=== PATIENT | female | born 2000 | race Caucasian/White ===

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

== ENCOUNTER → 2022-07-16 09:24 | Outpatient (BNVA) | payer MEDICAID, SELFPAY | PROVIDERS: PCP Registered Nurse Community Health; Visit Provider Advanced Practice Midwife | DX: Z34.81 Encounter for supervision of other normal pregnancy, first trimester (principal); Z3A.00 Weeks of gestation of pregnancy not specified | CPT/HCPCS: 99202 ==

== ENCOUNTER 2022-09-03 13:56 | Outpatient (REF) | payer MEDICAID, SELFPAY ==
[2022-09-03 15:35] LABS: Hematocrit 36.4 % (37.0-47.0); Hemoglobin 12.7 g/dl (12.0-16.0); Mean Corpuscular HGB Conc 34.9 g/dl (31.0-35.0); Mean Corpuscular Hemoglobin 30.8 pg (27.0-33.0); Mean Corpuscular Volume 88.1 fL (80.0-98.0); Mean Platelet Volume 11.4 fL (9.4-12.3); Platelet Count 237 X10*3/uL (160-400); Red Blood Count 4.13 X10*6/uL (4.20-5.50); Red Cell Distribution Width 12.5 % (11.0-16.0); White Blood Count 10.9 X10*3/uL (4.8-10.8)
[2022-09-03 16:06] LABS: Amphetamine Screen Urine Not Detected (Not Detect); Barbiturates, Urine Not Detected (Not Detect); Benzodiazepines Screen Urine Not Detected (Not Detect); Cannabinoid Screen Urine Not Detected (Not Detect); Cocaine Screen Urine Not Detected (Not Detect); Fentanyl, urine Not Detected (Not Detect); Opiate Screen Urine Not Detected (Not Detect); Phencyclidine Screen Urine Not Detected (Not Detect)
[2022-09-04 04:43] LABS: Syphilis Screen Nonreactive (Nonreactive)
[2022-09-04 07:13] LABS: HIV AB/AG Nonreactive (Nonreactive); HIV Num 1 0.08 S/CO (0.00-0.99); Hepatitis B Surface Antigen Negative (Negative); ~HepC Num1 0.13 S/CO (0.00-0.79); ~Hepatitis C Antibody Nonreactive (Nonreactive)
[2022-09-05 06:03] LABS: Rubella IgG Antibody 1.61 Index
[2022-09-15 02:09] LABS: CF Ethnicity NG; Cystic Fibrosis NEGATIVE (NEGATIVE)
== END 2022-09-03 13:57 | disposition home or self-care (01) ==
LOC: HO.LAB 13:56
PROVIDERS: PCP Registered Nurse Community Health; Visit Provider Advanced Practice Midwife
DX: Z34.92 Encounter for supervision of normal pregnancy, unspecified, second trimester (principal); Z3A.17 17 weeks gestation of pregnancy
CPT/HCPCS: 80307; 81220; 85027; 86762; 86780; 86787; 86803; 86850; 86900; 87086; 87340; 87389; 99212

== ENCOUNTER 2022-09-09 13:46 | Outpatient (REF) | payer MEDICAID, SELFPAY ==
[2022-09-10 06:31] LABS: CT PCR NOT DETECTED (Not Detect.); NG PCR NOT DETECTED (Not Detect.)
[2022-09-10 11:15] LABS: BV Int Neg Control Negative (Negative); BV Int Pos Control Positive (Positive)
== END 2022-09-09 13:47 | disposition home or self-care (01) ==
LOC: HO.LNP 13:46
PROVIDERS: PCP Registered Nurse Community Health; Visit Provider Advanced Practice Midwife
DX: O99.342 Other mental disorders complicating pregnancy, second trimester (principal); F41.9 Anxiety disorder, unspecified; Z3A.18 18 weeks gestation of pregnancy
CPT/HCPCS: 0353U; 81003; 87480; 87510; 87660; 88142; 99212

== ENCOUNTER → 2022-10-07 14:27 | Outpatient (BNVA) | payer MEDICAID, SELFPAY | PROVIDERS: PCP Registered Nurse Community Health; Visit Provider Advanced Practice Midwife | DX: Z34.82 Encounter for supervision of other normal pregnancy, second trimester (principal); Z3A.22 22 weeks gestation of pregnancy | CPT/HCPCS: 81003; 99212 ==

== ENCOUNTER → 2022-11-04 14:26 | Outpatient (BNVA) | payer MEDICAID, SELFPAY | PROVIDERS: PCP Registered Nurse Community Health; Visit Provider Advanced Practice Midwife | DX: O09.32 Supervision of pregnancy with insufficient antenatal care, second trimester (principal); O09.292 Supervision of pregnancy with other poor reproductive or obstetric history, second trimester; O99.342 Other mental disorders complicating pregnancy, second trimester; F41.9 Anxiety disorder, unspecified; O26.892 Other specified pregnancy related conditions, second trimester; R12 Heartburn; Z3A.26 26 weeks gestation of pregnancy | CPT/HCPCS: 99212 ==

== ENCOUNTER 2022-11-20 14:37 | Outpatient (REF) | payer MEDICAID, SELFPAY ==
[2022-11-20 17:35] LABS: Hematocrit 36.1 % (37.0-47.0); Hemoglobin 12.1 g/dl (12.0-16.0); Mean Corpuscular HGB Conc 33.5 g/dl (31.0-35.0); Mean Corpuscular Hemoglobin 30.6 pg (27.0-33.0); Mean Corpuscular Volume 91.2 fL (80.0-98.0); Mean Platelet Volume 11.9 fL (9.4-12.3); Platelet Count 286 X10*3/uL (160-400); Red Blood Count 3.96 X10*6/uL (4.20-5.50); Red Cell Distribution Width 12.2 % (11.0-16.0); White Blood Count 10.9 X10*3/uL (4.8-10.8)
[2022-11-23 09:08] LABS: Syphilis Screen Nonreactive (Nonreactive)
== END 2022-11-20 14:38 | disposition home or self-care (01) ==
LOC: HO.LAB 14:37
PROVIDERS: Visit Provider Advanced Practice Midwife
DX: O99.340 Other mental disorders complicating pregnancy, unspecified trimester (principal); F41.9 Anxiety disorder, unspecified
CPT/HCPCS: 36415; 85027; 86780

== ENCOUNTER → 2022-12-04 14:35 | Outpatient (BNVA) | payer MEDICAID, SELFPAY | PROVIDERS: PCP Registered Nurse Community Health; Visit Provider Advanced Practice Midwife | DX: O26.893 Other specified pregnancy related conditions, third trimester (principal); Z67.91 Unspecified blood type, Rh negative; R12 Heartburn; O99.343 Other mental disorders complicating pregnancy, third trimester; F41.9 Anxiety disorder, unspecified; O24.419 Gestational diabetes mellitus in pregnancy, unspecified control; Z3A.30 30 weeks gestation of pregnancy | CPT/HCPCS: 81003; 99212 ==

== ENCOUNTER 2022-12-10 14:21 | Outpatient (REF) | payer MEDICAID, SELFPAY ==
[2022-12-10 16:42] LABS: Glucose 1 Hour PP 50gm Dose 78 mg/dL (60-140)
== END 2022-12-10 14:22 | disposition home or self-care (01) ==
LOC: HO.LAB 14:21
PROVIDERS: PCP Registered Nurse Community Health; Visit Provider Advanced Practice Midwife
DX: O99.343 Other mental disorders complicating pregnancy, third trimester (principal); F41.9 Anxiety disorder, unspecified; O26.893 Other specified pregnancy related conditions, third trimester; Z67.91 Unspecified blood type, Rh negative; Z3A.31 31 weeks gestation of pregnancy
CPT/HCPCS: 36415; 82950; 86850; 96372; 99212; J2790

== ENCOUNTER → 2022-12-25 13:52 | Outpatient (BNVA) | payer MEDICAID, SELFPAY | PROVIDERS: PCP Registered Nurse Community Health; Visit Provider Advanced Practice Midwife | DX: Z34.83 Encounter for supervision of other normal pregnancy, third trimester (principal); Z3A.33 33 weeks gestation of pregnancy | CPT/HCPCS: 99212 ==

== ENCOUNTER → 2023-01-01 14:58 | Outpatient (BNVA) | payer MEDICAID, SELFPAY | PROVIDERS: PCP Registered Nurse Community Health; Visit Provider Advanced Practice Midwife | DX: Z34.83 Encounter for supervision of other normal pregnancy, third trimester (principal); Z3A.34 34 weeks gestation of pregnancy | CPT/HCPCS: 81003; 99212 ==

== ENCOUNTER 2023-01-15 14:40 | Outpatient (REF) | payer MEDICAID, SELFPAY ==
[2023-01-16 06:04] LABS: CT PCR NOT DETECTED (Not Detect.); NG PCR NOT DETECTED (Not Detect.)
[2023-01-16 13:49] LABS: BV Int Neg Control Negative (Negative); BV Int Pos Control Positive (Positive)
[2023-01-17 13:09] LABS: Allergic to Penicillin? No
== END 2023-01-15 14:41 | disposition home or self-care (01) ==
LOC: HO.LNP 14:40
PROVIDERS: PCP Registered Nurse Community Health; Visit Provider Advanced Practice Midwife
DX: Z23 Encounter for immunization (principal); O09.293 Supervision of pregnancy with other poor reproductive or obstetric history, third trimester; Z3A.36 36 weeks gestation of pregnancy
CPT/HCPCS: 0353U; 87150; 87480; 87510; 87660; 90471; 90715; 99212

== ENCOUNTER → 2023-01-25 13:37 | Outpatient (BNVA) | payer MEDICAID, SELFPAY | PROVIDERS: PCP Registered Nurse Community Health; Visit Provider Advanced Practice Midwife | DX: Z34.83 Encounter for supervision of other normal pregnancy, third trimester (principal); Z3A.37 37 weeks gestation of pregnancy | CPT/HCPCS: 99212 ==

== ENCOUNTER 2023-04-03 16:30 | Emergency (ER) | payer MEDICAID, SELFPAY ==
--- NOTE | ~2023-04-03 | XR_ITS ---
EXAMINATION: XR THORACIC SPINE CLINICAL INFORMATION: Back pain COMPARISON: None available. TECHNIQUE: 3 views of the thoracic spine were obtained. FINDINGS: There is no fracture or bone destruction seen and the vertebral alignment is normal. There is no disc space narrowing. There is no abnormality of the paraspinal soft tissues. XR/XR thoracic spine 3V IMPRESSION: Unremarkable examination.
[2023-04-03 17:32] VITALS: PULSE 80; RESP 18; O2SAT 98; BMI 31.8
--- NOTE | 2023-04-03 20:08 | ED_ITS ---
HPI - Back Pain/Injury General Chief Complaint: Back Pain/Injury Stated Complaint: Back inj at work Time Seen by Provider: 04/03/23 17:35 Source: patient and RN notes reviewed Mode of arrival: ambulatory Limitations: no limitations History of Present Illness HPI Narrative: This is a 22-year-old female, with history of asthma, presenting to the emergency department with complaints of upper back pain times 6 days. 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 She felt her back start to cause her some pain. Denies specific movement to cause her pain. She states over the last several days her pain has gradually worsened. She has tried massage, and since, pain patches, without any relief. She denies any fevers, chills, shortness breath, a bdominal pain, nausea, vomiting diarrhea. No urinary symptoms. No saddle anesthesia. No weakness or numbness. She is ambulatory. No other complaints or concerns at this time. MD elicited complaint: back pain and back injury Onset (ago): day(s) Timing: constant Severity: moderate Similar Symptoms Previously: No Quality: aching Location: thoracic spine Radiation: none Exacerbating factors: immobilization Relieving factors: immobilization Context: while lifting and turning/twisting Associated symptoms: denies other symptoms Treatments prior to arrival: cold therapy, heat therapy and NSAIDS Work related injury: Yes Related Data Previous Rx's Medication Instructions Recorded vitamin with calcium 1 tab PO DAILY #90 tabs 07/16/22 no.72-iron 27 mg-folic acid 1 mg tablet ( Vitamins Plus Low Iron) FreeStyle Lite Strips (blood sugar #100 strips 11/26/22 diagnostic) blood-glucose meter (FreeStyle #1 ea 11/26/22 [place] Lite kit) lancets 28 gauge (FreeStyle #100 ea 11/26/22 Lancets) acetaminophen 325 mg capsule 650 mg (2 x 325 mg) PO Q6H PRN 04/03/23 (Tylenol) pain #30 caps ibuprofen 600 mg tablet 600 mg PO Q6H PRN pain #30 tabs 04/03/23 lidocaine 5 % topical patch 1 patch topical DAILY #30 ea 04/03/23 (Lidoderm) Allergies Allergy/AdvReac Type Severity Reaction Status Date / Time pineapple [PINEAPPLE] Allergy Intermediate HIVES Verified 01/25/23 13:39 Review of Systems Review of Systems: Yes all other systems are reviewed and are negative Constitutional: Constitutional: Reports as per [facility] Past Medical History Medical History H/O oligohydramnios in prior , currently Surgical History [place] teeth removed Family History Family History Mother Ovarian cancer Maternal Grandmother Colon cancer Social History Social History Household Members: Family Housing: House Are you a primary career center advisor to a significant other at home: No Do you presently have visiting nurse or other home services: No Alcohol intake: former Patient Tobacco Use Status: Former Tobacco user Special zoë needs: No Agree to transfusion: Yes Advance Directives: No Advance Directives Information Provided: No Physical Exam Vital Signs: Vital Signs: Last Vital Signs Pulse 88 04/03/23 22:54 Resp 16 04/03/23 22:54 BP 122/83 04/03/23 22:54 Pulse Ox 99 04/03/23 22:54 O2 Del Method Room Air 04/03/23 22:54 BMI result Body Mass Index 31.8 Const: General: cooperative, comfortable and no acute distress Orientation/consciousness: patient oriented x3 Limitations: no limitations HEENT: Head: Yes normal to inspection, Yes normocephalic and Yes atraumatic Ears: hearing grossly normal bilaterally General nose exam: Normal external nose present Face and sinus: Yes normal facial exam Mouth: Normal oral and palatal mucosa present, oropharynx normal and moist mucous membranes Throat: Yes posterior oropharynx normal Eyes: General: appearance normal, both eyes and all related structures Eyelids: Yes eyelids normal Conjunctivae: conjunctivae normal Sclerae: sclerae normal Pupils: Equal, round and reactive pupils present EOM: EOMs intact bilaterally Neck: Neck: Yes normal visual inspection, Yes full ROM and Yes no lymphadenopathy Lymphatic: no lymphadenopathy noted Chest: Chest palpation & inspection: normal inspection of the chest Resp: Effort & Inspection: normal respiratory effort and able to speak in complete sentences Auscultation: clear to auscultation bilaterally, no crackles, no rales, no rhonchi and no wheezes Cardio: Rate: regular rate Rhythm: regular rhythm Heart sounds: S1 normal heart sound present and S2 normal heart sound present GI: Inspection: Yes normal to inspection Skin: General skin exam: no rashes or lesions noted Trauma: no lacerations or abrasions Wounds: no wounds Neuro: General: patient oriented x3 and moves all extremities Cranial nerves: Yes Equal, round and reactive pupils present Extrem: General: Yes normal to inspection Right upper extremity: normal to inspection Left upper extremity: normal to inspection Right lower extremity: normal to inspection Left lower extremity: normal to inspection Course Reevaluation(s) Reevaluation #1: X-ray unremarkable patient feeling better after receiving Tylenol, discussed return precautions. Given prescription for ibuprofen and lidocaine patches. Patient stable for discharge. Medications Administered Discontinued Medications Generic Name Dose Route Start Last Admin Trade Name Freq PRN Reason Stop Dose Admin Acetaminophen 975 mg 04/03/23 22:00 04/03/23 22:05 Acetaminophen 325 Mg Tablet PO 04/03/23 22:01 975 mg ONCE ONE Administration Medical Decision Making Medical Decision Making MDM Narrative: 22-year-old female presenting to the emergency department for evaluation of back pain x4 days. Patient reports chemical injury. On arrival vital signs are within normal limits. Differential diagnoses include muscle spasm, disc herniation, fracture. Less likely nephrolithiasis, no urinary symptoms. This patient presents with back pain most consistent with muscle spasms Differential diagnoses includes lumbago versus musculoskeletal spasm / strain. No back pain red flags on history or physical. Presentation not consistent with malignancy (lack of history of malignancy, lack of B symptoms), fracture (no trauma, no bony tenderness to palpation), cauda equina (no bowel or urinary incontinence/retention, no saddle anesthesia, no distal weakness), renal colic, pyelonephritis (afebrile, no CVAT, no urinary symptoms). Plan x-rays Differential Diagnosis Differential Diagnoses: The differential diagnosis associated with the presentation includes See above Radiology Impression Discussion of test interpretation with radiology: I have reviewed the radiologist's reading. Radiologist Impression: EXAMINATION: XR THORACIC SPINE CLINICAL INFORMATION: Back pain COMPARISON: None available. TECHNIQUE: 3 views of the thoracic spine were obtained. FINDINGS: There is no fracture or bone destruction seen and the vertebral alignment is normal. There is no disc space narrowing. There is no abnormality of the paraspinal soft tissues. XR/XR thoracic spine 3V IMPRESSION: Unremarkable examination. Dictated By: Ld Grant MD Discharge Plan Discharge Clinical Impression: Spasm of thoracic back muscle Patient Disposition: Home, Self-Care Instructions: Muscle Spasm (ED), Back Pain (ED) Additional Instructions: Your x-rays were normal today. You have a muscle spasm in your back causing you to have the symptoms. Please take ibuprofen and Tylenol, you may alternate between these medications for pain relief. Lidoderm patches can also help with your pain. Gentle massage, range of motion, stretching can also help. Follow-up with your primary care physician on Wednesday to ensure improvement of your symptoms. If any new or worsening symptoms occur, please return for re-evaluation. Prescriptions: New ibuprofen 600 mg tablet 600 mg PO Q6H PRN (Reason: pain) Qty: 30 0RF lidocaine [Lidoderm] 5 % adhesive patch,medicated 1 patch topical DAILY Qty: 30 0RF Rx Instructions: leave on most painful area for up to 12 hrs acetaminophen [Tylenol] 325 mg capsule 650 mg PO Q6H PRN (Reason: pain) Qty: 30 0RF No Action (DME) blood-glucose meter [FreeStyle [place] Lite] Kit See Rx Instructions .ROUTE .MEDSUPPLY Qty: 1 0RF Rx Instructions: use 4x day as directed (DME) FreeStyle Lite Strips Strip See Rx Instructions .ROUTE QID Qty: 100 1RF Rx Instructions: use 4x day as directed (DME) lancets [FreeStyle Lancets] 28 gauge misc See Rx Instructions .ROUTE .MEDSUPPLY Qty: 100 0RF Rx Instructions: use 4x day Vitamin Plus Low Iron 27 mg iron- 1 mg tablet 1 tab PO DAILY Qty: 90 4RF Stand Alone Forms: Work/School Release Interventions: ED Discharge Assessment Last Done: 04/03/23 23:36 Discharge Date/Time: 04/03/23 23:37
[2023-04-03] MEDS: Acetaminophen 325 MG TABLET 975 MG PO (22:05)
[2023-04-03 22:54] VITALS: BP 122/83; PULSE 88; RESP 16; O2SAT 99
--- NOTE | 2023-04-03 22:57 | PC.NURSE ---
pt medicated w/ 975mg apap- pt now sts pain is 4/10 down from 710- XR resulted pt awaitng provider re-eval and d/c- call sotelo within reach.
--- NOTE | 2023-04-03 23:00 | PC.NURSE ---
report given to MAK Karimi
== END 2023-04-03 23:37 | disposition home or self-care (01) ==
PROVIDERS: Emergency Provider Emergency Medicine Emergency Medical Services; PCP Nurse Practitioner Primary Care
DX: M62.830 Muscle spasm of back (principal)
CPT/HCPCS: 72072; 99283; 99284

== ENCOUNTER 2023-09-15 11:35 | Outpatient (AMB) | payer MEDICAID, SELFPAY ==
--- NOTE | 2023-09-15 11:41 | A.OFFVIS_ITS ---
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 She reports unknown LMP, delivered 7 months ago. She did a home test 1 month ago because her sister in law requested her to do 1 with her she reports ironically her [id number] was not and she was which was a shock for her. She has a . She does not note any quickening. She denies any nausea, reports fatigue. Does not denies any pelvic pain or vaginal bleeding. History of IOL 01/2023 for oligomenorrhea and IUGR with previous . [facility] Medical History (Updated 09/15/23 @ 16:12 by Marzena Ingram CNM) Late care affecting in third trimester H/O oligohydramnios in prior , currently Surgical History (Reviewed 01/25/23 @ 13:44 by Vahe Salinas [facility]) [place] teeth removed Family History Mother Ovarian cancer Maternal Grandmother Colon cancer Social History (Reviewed 01/25/23 @ 13:44 by Vahe Salinas [facility]) Household Members: Family Housing: House Are you a primary floor care technician to a significant other at home: No Do you presently have visiting nurse or other home services: No Alcohol intake: former Patient Tobacco Use Status: Former Tobacco user Special zoë needs: No Agree to transfusion: Yes Female Reproductive History Menstrual Age of Menarche: 12 Total pregnancies: 5 Full term: 2 Number of Living Children: 2 Ab induced: 1 Ab spontaneous: 1 Review of Systems Const All systems reviewed & are unremarkable except as noted in HPI and below Endo Reports no additional complaints Physical Exam Vital Signs: Last Vital Signs BP 118/66 09/15/23 11:42 BMI result Body Mass Index 33.0 Const General: cooperative, healthy appearing and no acute distress GI Other: Abdomen soft, gravid, fundal height equals 28. heart rate 150. Psych Appearance: well kempt Attitude: cooperative Thought process: Normal thought process present Results AMB Test Urine AMB Test Urine Positive Last Edit by THALIA Mattson on 09/15/23 11:49 Results Reviewed Results Reviewed: Laboratory Last Values [facility] Positive 09/15/23 11:49 Assessment & Plan Assessment & Plan (1) Late care affecting in third trimester: Code(s): O09.33 - Supervision of with insufficient care, third trimester Plan Patient returned from ultrasound for an unofficial read of her report. EDC is 12/10/2023 gestational age is approximately 27.6 weeks. Start vitamins. Reviewed warnings and when to call for immediate care. Order for survey in the next week. Plan care until transfer [facility] is completed stopped reach out for appointments in scheduling. All of her questions and concerns were addressed to the best of my ability and shared decision making. She is agreeable to the plan of care. This note is constructed using voice recognition software. While every effort has been made to ensure accuracy, fine artist errors may have been included. Orders: Orders US OB limited Today Z78.9 - Other specified health status US OB /maternal detail Today O09.33 - Supervision of with insufficient care, third trimester AMB HCG Urine Test Today Z32.01 - Encounter for test, result positive Medications: Refilled PNV,calcium 28-jbbl-bwyeq acid 27 mg iron- 1 mg ( Vitamins Plus Low Iron) 1 tab PO DAILY 90 tabs 4RF Discontinued FreeStyle Lite Strips (blood sugar diagnostic) Discontinued Reason: Ancillary Entered New Order use 4x day as directed 100 strips 1RF NS lancets (FreeStyle Lancets) Discontinued Reason: Ancillary Entered New Order use 4x day 100 ea 0RF blood-glucose meter (FreeStyle [place] Lite kit) Discontinued Reason: Ancillary Entered New Order use 4x day as directed 1 ea 0RF gest diabetes Coding Level of Care Code Est Pt Level 3 (35927) Diagnoses Late care affecting in third trimester O09.33
[2023-09-15 11:42] VITALS: BP 118/66; BMI 33.0
== END 2023-09-15 12:15 | disposition home or self-care (01) ==
LOC: HO.HWS 11:35
PROVIDERS: PCP Nurse Practitioner Primary Care; Visit Provider Advanced Practice Midwife
DX: O09.33 Supervision of pregnancy with insufficient antenatal care, third trimester (principal); Z32.01 Encounter for pregnancy test, result positive
CPT/HCPCS: 99213

== ENCOUNTER → 2023-09-15 11:35 | Outpatient (BNVA) | payer MEDICAID, SELFPAY | PROVIDERS: PCP Nurse Practitioner Primary Care; Visit Provider Advanced Practice Midwife ==

== ENCOUNTER 2023-09-15 12:18 | Outpatient (REF) | payer MEDICAID, SELFPAY ==
--- NOTE | ~2023-09-15 | US_ITS ---
EXAMINATION: US , LIMITED CLINICAL INFORMATION: Other specified health status. Unknown LMP. COMPARISON: None available. TECHNIQUE: Limited transabdominal OB ultrasound. survey not performed. FINDINGS: There is a single viable intrauterine fetus in cephalic position. heart rate is 149 bpm. Biophysical profile is 8 out of 8. Amniotic fluid index is 13 cm. measurements are concordant. BPD measures 6.7 cm suggesting gestational age 26 weeks 6 days. OFD measures 8.9 cm suggesting gestational age 27 weeks 4 days. Head circumference measures 29 cm suggesting gestational age 27 weeks 2 days. Abdominal circumference measures 24 cm suggesting gestational age 28 weeks 0 days. Femur length is 5.3 cm suggesting gestational age 28 weeks 2 days. From today's measurements, gestational age is estimated at 27 weeks and 5 days with estimated date of delivery 12/10/2023. There is a posterior fundal placenta with grade 0 changes. Cervix is long and closed and measures 5.3 cm in length. US/US OB limited IMPRESSION: Single viable intrauterine fetus. From today's measurements gestational age is estimated at 27 weeks 5 days.
== END 2023-09-15 12:19 | disposition home or self-care (01) ==
LOC: HO.US 12:18
PROVIDERS: PCP Nurse Practitioner Primary Care; Visit Provider Advanced Practice Midwife
DX: O09.32 Supervision of pregnancy with insufficient antenatal care, second trimester (principal); Z78.9 Other specified health status; Z3A.27 27 weeks gestation of pregnancy
CPT/HCPCS: 76815; 81025; 99212

== ENCOUNTER 2024-02-03 11:35 | Outpatient (REF) | payer MEDICAID, SELFPAY ==
[2024-02-03 14:24] LABS: Estimated Average Glucose 103 mg/dL; Hemoglobin A1c % 5.2 % (<6.0)
[2024-02-03 14:37] LABS: Alanine Aminotransferase 75 U/L (0-31); Albumin Level 4.3 g/dL (3.5-5.0); Alkaline Phosphatase 106 U/L (39-117); Anion Gap 14 (12-20); Aspartate Amino Transferase 41 U/L (5-31); Bilirubin Total 0.4 mg/dL (0.0-1.0); Blood Urea Nitrogen 13 mg/dL (9-16); Calcium 9.4 mg/dL (8.4-10.2); Carbon Dioxide 25 mmol/L (22-29); Chloride 105 mmol/L (96-108); Cholesterol 226 mg/dL (<200); Estimated Glomerular Filt Rate > 60; Glucose Random 65 mg/dL (60-115); HDL Cholesterol 46 mg/dL (>40); LDL Cholesterol Calculated 140 mg/dL (<100); Potassium 3.8 mmol/L (3.3-5.1); Sodium 140 mmol/L (135-145); Total Protein 7.7 g/dL (6.5-8.0); Triglycerides 204 mg/dL (<150)
[2024-02-03 14:41] LABS: Reflex LDLD? No
[2024-02-03 14:54] LABS: TSH reflex Free T4 1.58 uIU/mL (0.32-4.0)
[2024-02-03 15:03] LABS: Folate 8.9 ng/mL (> or = 4.0); Vitamin B12 456 pg/mL (200-900)
== END 2024-02-03 11:36 | disposition home or self-care (01) ==
LOC: HO.HHCL 11:35
PROVIDERS: Visit Provider Family Medicine
DX: R20.2 Paresthesia of skin (principal); R63.5 Abnormal weight gain; T50.905A Adverse effect of unspecified drugs, medicaments and biological substances, initial encounter; X58.XXXA Exposure to other specified factors, initial encounter; Y93.9 Activity, unspecified; Y92.9 Unspecified place or not applicable; Y99.9 Unspecified external cause status
CPT/HCPCS: 36415; 80053; 80061; 82607; 82746; 83036; 84443

== ENCOUNTER 2024-03-23 | Outpatient (REF) | payer MEDICAID, SELFPAY ==
[2024-03-26 08:30] LABS: H Pylori Breath Test Negative (Negative)
== END 2024-03-23 00:01 | disposition home or self-care (01) ==
LOC: HO.LNP
PROVIDERS: Visit Provider Nurse Practitioner Primary Care
DX: K21.9 Gastro-esophageal reflux disease without esophagitis (principal)
CPT/HCPCS: 83013

== ENCOUNTER 2024-05-02 17:56 | Outpatient (REF) | payer MEDICAID, SELFPAY ==
[2024-05-03 11:23] LABS: CT PCR NOT DETECTED (Not Detect.); NG PCR NOT DETECTED (Not Detect.)
== END 2024-05-02 17:57 | disposition home or self-care (01) ==
LOC: HO.HHCLNP 17:56
PROVIDERS: Visit Provider Advanced Practice Midwife
DX: R10.2 Pelvic and perineal pain (principal)
CPT/HCPCS: 87491; 87591

== ENCOUNTER 2024-05-03 14:46 | Outpatient (REF) | payer MEDICAID, SELFPAY ==
--- NOTE | ~2024-05-03 | US_ITS ---
EXAMINATION: US PELVIS CLINICAL INFORMATION: Evaluate for IUD placement. COMPARISON: OB ultrasound dated 09/15/2023. TECHNIQUE: Ultrasound of the pelvis is performed using both transabdominal and transvaginal transducers along with Doppler. Transvaginal imaging is performed due to inadequate visualization transabdominally. FINDINGS: Uterus: The uterus is anteverted and measures 10.9 x 3.1 x 5.2 cm. IUD within the endometrial cavity. The body of the IUD is located within the left side of the endometrial cavity with the arm obliquely oriented and appearing to extend into the myometrium. There is additional density within the right side of the endometrial cavity which could indicate the IUD string. The double wall endometrial thickness is 0.9 mm. The uterus is smooth in contour and has normal myometrial echogenicity. No visible fibroid. Adnexa: Both ovaries are visualized. There is normal color flow to the adnexa. There is no ovarian torsion. There is no pelvic ascites or fluid collection. Right ovary measures 3.5 x 2.4 x 2.4 cm. Volume of 11 mL. Left ovary measures 2.4 x 3.0 x 1.8 cm. Volume of 6.8 mL. US/US pelvic and transvaginal IMPRESSION: 1. IUD within the endometrial cavity. The body of the IUD is located within the left side of the endometrial cavity with the arms obliquely oriented and appearing to extend into the myometrium. Additional density within the right side of the endometrial cavity which could indicate the IUD string. 2. Sonographically unremarkable right and left ovary. Electronically signed by: Todd Story MD 05/04/2024 08:44 AM EDT
== END 2024-05-03 14:47 | disposition home or self-care (01) ==
LOC: HO.US 14:46
PROVIDERS: PCP Nurse Practitioner Primary Care; Visit Provider Advanced Practice Midwife
DX: R10.2 Pelvic and perineal pain (principal); T83.32XA Displacement of intrauterine contraceptive device, initial encounter
CPT/HCPCS: 76830; 76856

== ENCOUNTER 2024-05-27 23:33 | Emergency (ER) | payer MEDICAID, SELFPAY ==
[2024-05-27 23:35] VITALS: BP 125/78; PULSE 109; RESP 18; TEMP 36.6; O2SAT 98; BMI 35.4
[2024-05-28 00:07] LABS: MANUAL DIFF FLAG NO
[2024-05-28 00:09] LABS: Appearance Urine Clear; Color Urine Yellow; Glucose Urine UA Negative (Negative); Leukocyte Esterase Urine Trace (Negative); Nitrite Urine Negative (Negative); PH 5.5 (5.0-9.0); Specific Gravity - Urine 1.025 (1.005-1.025); UMIC TRIGGER UACC YES; Urine Blood Large (3+) (Negative); Urine Ketones Trace mg/dL (Negative); Urine Protein Trace mg/dL (Neg-Trace)
[2024-05-28 00:11] LABS: Basophils Percent Auto 0.3 % (0-2); Eosinophils Absolute Auto 0.2 X10*3/uL (0.0-0.4); Eosinophils Percent Auto 1.4 % (0-4); Hematocrit 38.2 % (37.0-47.0); Hemoglobin 13.3 g/dl (12.0-16.0); Imm Gran Abs Auto 0.05 X10*3/uL (0.00-0.03); Imm Gran Pct Auto 0.4 % (0.0-0.4); Lymphocytes Absolute Auto 3.4 X10*3/uL (1.2-4.9); Lymphocytes Percent Auto 23.5 % (20-40); Mean Corpuscular HGB Conc 34.8 g/dl (31.0-35.0); Mean Corpuscular Hemoglobin 29.4 pg (27.0-33.0); Mean Corpuscular Volume 84.3 fL (80.0-98.0); Mean Platelet Volume 11.2 fL (9.4-12.3); Monocytes Absolute Auto 0.6 X10*3/uL (0.1-1.2); Monocytes Percent Auto 3.9 % (2-11); Neutrophils Absolute Auto 10.1 x10*3/uL (2.0-8.3); Neutrophils Percent Auto 70.5 % (45-73); Platelet Count 257 X10*3/uL (160-400); Red Blood Count 4.53 X10*6/uL (4.20-5.50); Red Cell Distribution Width 12.5 % (11.0-16.0); White Blood Count 14.2 X10*3/uL (4.8-10.8)
[2024-05-28 00:14] LABS: INTERNATIONAL NORM RATIO 0.9 (0.9-1.1); Prothrombin Time 10.8 SEC (10.9-12.4)
[2024-05-28 00:15] LABS: Bacteria Urine None Seen (None Seen); Hyaline Casts Urine 0-2 /LPF (0-2); RBC Urine >20 /HPF (0-2); WBC Urine 0-5 /HPF (0-5)
[2024-05-28 00:16] LABS: UPreg QC Valid YES; Urine Pregnancy NEGATIVE (NEGATIVE)
[2024-05-28 00:26] LABS: Alanine Aminotransferase 71 U/L (0-31); Albumin Level 4.1 g/dL (3.5-5.0); Alkaline Phosphatase 98 U/L (39-117); Anion Gap 18 (12-20); Aspartate Amino Transferase 56 U/L (5-31); Bilirubin Total 0.3 mg/dL (0.0-1.0); Blood Urea Nitrogen 8 mg/dL (9-16); Calcium 8.9 mg/dL (8.4-10.2); Carbon Dioxide 19 mmol/L (22-29); Chloride 108 mmol/L (96-108); Creatinine Clr Calc Pharmacy 145.1; Estimated Glomerular Filt Rate > 60; Glucose Random 138 mg/dL (60-115); Potassium 4.5 mmol/L (3.3-5.1); Sodium 140 mmol/L (135-145); Total Protein 8.3 g/dL (6.5-8.0)
--- NOTE | 2024-05-28 01:31 | ED.FEMALEGU ---
HPI - Female Genitourinary General Chief complaint: Vaginal Bleeding Stated complaint: heavy bleeding, blood clot Time Seen by Provider: 05/28/24 01:10 EST Source: patient Mode of arrival: ambulatory Limitations: no limitations History of Present Illness ED Provider: estephanie HOGAN Narrative: Recently got copper IUD placed 3 weeks ago since then been having vaginal bleed changing multiple pads 10-12 is a day with diffuse lower abdomen cramping. No family history of blood clots not on any blood thinner Related Data Previous Rx's ?Medication ?Instructions ?Recorded acetaminophen 325 mg capsule 650 mg (2 x 325 mg) PO Q6H PRN 04/03/23 (Tylenol) pain #30 caps vitamin with calcium 1 tab PO DAILY #90 tabs 09/15/23 no.72-iron 27 mg-folic acid 1 mg tablet ( Vitamins Plus Low Iron) desogestrel 0.15 mg-ethinyl 1 tab PO DAILY #28 tabs 05/28/24 estradiol 0.03 mg tablet (Apri) ferrous sulfate 325 mg (65 mg 325 mg PO DAILY #30 tabs 05/28/24 iron) tablet ibuprofen 600 mg tablet 600 mg PO Q6H PRN fever or pain 05/28/24 #30 tabs Allergies Allergy/AdvReac Type Severity Reaction Status Date / Time pineapple [PINEAPPLE] Allergy Intermediate HIVES Verified 05/27/24 23:40 Review of Systems Review of Systems: Yes all other systems are reviewed and are negative PMFSH Past Medical History Medical History (Reviewed 05/28/24 @ 01:35 EST by Yang Gama MD) Late care affecting in third trimester H/O oligohydramnios in prior , currently Surgical History (Reviewed 05/28/24 @ 01:35 EST by Yang Gama MD) [place] teeth removed Family History Family History (Reviewed 05/28/24 @ 01:35 EST by Yang Gama MD) Mother Ovarian cancer Maternal Grandmother Colon cancer Social History Social History (Reviewed 05/28/24 @ 01:35 EST by Yang Gama MD) Household Members: Family Housing: House Are you a primary before and after school daycare worker to a significant other at home: No Do you presently have visiting nurse or other home services: No Alcohol intake: former Patient Tobacco Use Status: Former Tobacco user Special zoë needs: No Agree to transfusion: Yes Advance Directives: No Advance Directives Information Provided: No Do you have a plan to hurt others: No Plan Physical Exam Vital Signs: Vital Signs: Last Vital Signs Temp 98.6 F 05/28/24 02:04 Pulse 99 05/28/24 02:04 Resp 18 05/28/24 02:04 BP 134/72 05/28/24 02:04 Pulse Ox 98 05/28/24 02:04 O2 Del Method Room Air 05/28/24 02:04 BMI result Body Mass Index 35.4 Appearance: Alert. Oriented X3. No acute distress. Eyes: No pallor or icterus ENT: Pharynx normal. Oral Mucosa moist Neck: Normal inspection. Neck supple. CVS: Normal heart rate and rhythm. Pulses normal. Respiratory: No respiratory distress. Equal air entry bilateral, no wheezing/rales/rhonchi Abdomen: Soft and mild deep tenderness Bowel sounds are present, no mass palpable, no CVA tenderness Skin: Skin warm and dry. Normal skin color. Normal skin turgor. Extremities: No lower extremity edema. No calf tenderness Neuro: Oriented X 3. No motor deficit. Medications Administered Discontinued Medications Generic Name Dose Route Start Last Admin Trade Name Freq PRN Reason Stop Dose Admin Tramadol HCl 50 mg 05/28/24 01:24 EST 05/28/24 01:35 EST Tramadol Hcl 50 Mg Tablet PO 05/28/24 01:25 EST 50 mg ONCE ONE Administration Medical Decision Making Medical Decision Making [facility] Narrative: Patient's labs are stable comes here for dysfunctional vaginal bleed after copper IUD placed will start on Apri control pills advised to follow with her recoater Lab Data [facility] Lab Attestation statement: I reviewed the patient's lab results. 05/28/24 00:02 05/28/24 00:02 Labs: Lab Results 05/28/24 Range/Units 00:02 WBC 14.2 H (4.8-10.8) X10*3/uL RBC 4.53 (4.20-5.50) X10*6/uL Hgb 13.3 (12.0-16.0) g/dl Hct 38.2 (37.0-47.0) % MCV 84.3 (80.0-98.0) fL MCH 29.4 (27.0-33.0) pg MCHC 34.8 (31.0-35.0) g/dl RDW 12.5 (11.0-16.0) % Plt Count 257 (160-400) X10*3/uL MPV 11.2 (9.4-12.3) fL Immature Gran % (Auto) 0.4 (0.0-0.4) % Neut % (Auto) 70.5 (45-73) % Lymph % (Auto) 23.5 (20-40) % [place] % (Auto) 3.9 (2-11) % Eos % (Auto) 1.4 (0-4) % Baso % (Auto) 0.3 (0-2) % Lymph # (Auto) 3.4 (1.2-4.9) X10*3/uL [place] # (Auto) 0.6 (0.1-1.2) X10*3/uL Eos # (Auto) 0.2 (0.0-0.4) X10*3/uL Baso # (Auto) 0.0 (0.0-0.2) X10*3/uL Abs Immat Gran (auto) 0.05 H (0.00-0.03) X10*3/uL Absolute Neuts (auto) 10.1 H (2.0-8.3) x10*3/uL Absolute Nucleated RBC 0.000 (0.0-0.012) X10*3/uL Nucleated RBC % (auto) 0.0 (0.0-0.2) /100WBC PT 10.8 L (10.9-12.4) SEC INR 0.9 (0.9-1.1) Sodium 140 (135-145) mmol/L Potassium 4.5 (3.3-5.1) mmol/L Chloride 108 (96-108) mmol/L Carbon Dioxide 19 L (22-29) mmol/L Anion Gap 18 (12-20) BUN 8 L (9-16) mg/dL Creatinine 0.65 (0.5-1.4) mg/dL Estim Creat Clear Calc 145.1 Estimated GFR > 60 Random Glucose 138 H (60-115) mg/dL Calcium 8.9 (8.4-10.2) mg/dL Total Bilirubin 0.3 (0.0-1.0) mg/dL AST 56 H (5-31) U/L ALT 71 H (0-31) U/L Alkaline Phosphatase 98 (39-117) U/L Total Protein 8.3 H (6.5-8.0) g/dL Albumin 4.1 (3.5-5.0) g/dL Urine Color Yellow Urine Appearance Clear Urine pH 5.5 (5.0-9.0) Ur Specific [place] 1.025 (1.005-1.025) Urine Protein Trace (Neg-Trace) mg/dL Urine Glucose (UA) Negative (Negative) mg/dL Urine Ketones Trace (Negative) mg/dL Urine Blood Large (3+) H (Negative) Urine Nitrite Negative (Negative) Ur Leukocyte Esterase Trace H (Negative) Urine RBC >20 H (0-2) /HPF Urine WBC 0-5 (0-5) /HPF Ur Squamous Epith Cells 3-5 (0-2) /HPF Urine Bacteria None Seen (None Seen) Hyaline Casts 0-2 (0-2) /LPF Urine Test NEGATIVE (NEGATIVE) Discharge Plan Discharge Clinical Impression: Dysfunctional uterine bleeding Patient Disposition: Home, Self-Care Instructions: Dysfunctional Uterine Bleeding (ED) Additional Instructions: Start taking control pills as prescribed and follow up with your recoater Iron pills daily ibuprofen for pain Prescriptions: New ibuprofen 600 mg tablet 600 mg PO Q6H PRN (Reason: fever or pain) Qty: 30 0RF desogestrel-ethinyl estradiol [Apri] 0.15-0.03 mg tablet 1 tab PO DAILY Qty: 28 0RF ferrous sulfate 325 mg (65 mg iron) tablet 325 mg PO DAILY Qty: 30 0RF No Action acetaminophen [Tylenol] 325 mg capsule 650 mg PO Q6H PRN (Reason: pain) Qty: 30 0RF Vitamin Plus Low Iron 27 mg iron- 1 mg tablet 1 tab PO DAILY Qty: 90 4RF Interventions: ED Discharge Assessment Last Done: 05/28/24 02:04 Discharge Date/Time: 05/28/24 02:10 Print Language: Lithuanian
[2024-05-28] MEDS: traMADoL HCL 50 MG TABLET PO (01:35)
[2024-05-28 01:40] VITALS: BP 134/72; PULSE 99; RESP 18; TEMP 37; O2SAT 98
--- NOTE | 2024-05-28 01:44 | MHC.EDTECH ---
Assumed care of patient at this time,pt brought from the waiting room,changed into hospital attire,vitals taken,visitor at bedside,call sotelo in reach
[2024-05-28 02:04] VITALS: BP 134/72; PULSE 99; RESP 18; TEMP 37; O2SAT 98
== END 2024-05-28 02:10 | disposition home or self-care (01) ==
PROVIDERS: Emergency Provider Internal Medicine; PCP Nurse Practitioner Primary Care
DX: N93.9 Abnormal uterine and vaginal bleeding, unspecified (principal); R25.2 Cramp and spasm; Z87.891 Personal history of nicotine dependence; Z79.899 Other long term (current) drug therapy
CPT/HCPCS: 36415; 80053; 81001; 81025; 85025; 85610; 99283

== ENCOUNTER 2024-05-30 10:15 | Emergency (ER) | payer MEDICAID, SELFPAY ==
--- NOTE | ~2024-05-30 | US_ITS ---
EXAMINATION: US PELVIS CLINICAL INFORMATION: Heavy bleeding for several weeks COMPARISON: 05/03/2024 prior pelvic ultrasound TECHNIQUE: Ultrasound of the pelvis is performed using both transabdominal and transvaginal transducers along with Doppler. Transvaginal imaging is performed due to inadequate visualization transabdominally. FINDINGS: Uterus: The uterus is anteverted and anteflexed and measures 9.5 x 5.0 x 6.8 cm. IUD is within the fundus of the uterus and appears to be in normal position. The double wall endometrial thickness is 7 mm. The uterus is smooth in contour and has normal myometrial echogenicity. No visible fibroid. Adnexa: Both ovaries are visualized. There is normal color flow to the adnexa. There is no ovarian torsion. There is no pelvic ascites or fluid collection. Right ovary measures 3.9 x 2.4 x 1.8 cm. Calculated volume 8.8 mm. There is a physiologic cyst in the lateral aspect of the right ovary at 21 x 22 x 22 mm. Left ovary measures 2.6 x 2.0 x 2.0 cm. Calculated volume 5.8 mL. US/US pelvic and transvaginal IMPRESSION: IUD appears to be in correct position. Electronically signed by: Sonny Guillermo MD 05/30/2024 02:04 PM [facility]
--- NOTE | 2024-05-30 11:21 | ED.GENADULT ---
HPI - General Adult General Chief complaint: Vaginal Bleeding Stated complaint: Vaginal bleeding, abd pain Time Seen by Provider: 05/30/24 11:56 Source: patient Mode of arrival: ambulatory Limitations: no limitations History of Present Illness ED Provider: Padmaja Edwards PA-C HPI narrative: 23-year-old female with no significant PMH presents to the ED today with a chief complaint of abnormal uterine bleeding and diffuse abdominal pain x 3 weeks. Endorses passage of large clots and bleeding through a super tampon in 1.5 hours. Three weeks ago she had a copper IUD placed 1 month after her previous copper IUD was found to be malpositioned. Denies any previous issues with previous copper IUD. She was seen here in the ED on 05/28/2024 and was discharged on desogestrel-ethinyl estradiol [Apri] 0.15-0.03 mg tablet once a day x 28 days and ibuprofen 600 mg every 6 hours for pain. No imaging was obtained at that time. What brings her in today is that this morning she passed a golf ball sized clot with cruz tissue in it. She called her OBGYN at [facility] this morning who suggested she come in to be seen. Endorses dizziness, but denies fainting or syncope. Denies N/V, SOB or chest pain. Relieving factors: none Exacerbating factors: none Associated symptoms: denies other symptoms Treatments prior to arrival: none Related Data Previous Rx's ?Medication ?Instructions ?Recorded acetaminophen 325 mg capsule 650 mg (2 x 325 mg) PO Q6H PRN 04/03/23 (Tylenol) pain #30 caps vitamin with calcium 1 tab PO DAILY #90 tabs 09/15/23 no.72-iron 27 mg-folic acid 1 mg tablet ( Vitamins Plus Low Iron) desogestrel 0.15 mg-ethinyl 1 tab PO DAILY #28 tabs 05/28/24 estradiol 0.03 mg tablet (Apri) ferrous sulfate 325 mg (65 mg 325 mg PO DAILY #30 tabs 05/28/24 iron) tablet ibuprofen 600 mg tablet 600 mg PO Q6H PRN fever or pain 05/28/24 #30 tabs Allergies Allergy/AdvReac Type Severity Reaction Status Date / Time pineapple [PINEAPPLE] Allergy Intermediate HIVES Verified 05/30/24 11:23 Review of Systems Constitutional: Constitutional: Reports no additional constitutional complaints, Denies chills, Denies fever(s) and Denies night sweats Eyes: Eyes: Reports no additional eye complaints, Denies blurry vision, Denies change in vision, Denies diplopia, Denies eye discharge, Denies loss of vision and Denies eye pain ENT: Reports dizziness Cardiovascular: Cardiovascular: Reports no additional cardiovascular complaints, Denies chest pain, Denies lightheadedness, Denies Loss of Consciousness and Denies dyspnea Respiratory: Respiratory: Reports no additional respiratory complaints and Denies dyspnea Gastrointestinal: Gastrointestinal: Reports no additional gastrointestinal complaints, Denies abdominal pain, Denies melena, Denies hematochezia, Denies change in bowel habits and Denies change in stool character Genitourinary: Genitourinary: Reports abnormal vaginal bleeding, Denies hematuria, Denies urinary frequency, Denies dysuria, Reports pelvic pain, Denies urinary incontinence, Denies urinary hesitancy and Denies urinary urgency Musculoskeletal: Musculoskeletal: Reports no additional musculoskeletal complaints, Denies numbness and Denies tingling Neurologic: Reports dizziness, Denies loss of vision, Denies numbness and Denies tingling Psychiatric: Psychiatric: Reports no additional psychiatric complaints Endocrine: Endocrine: Reports no additional endocrine complaints Hematologic/Lymphatic: Hematologic/Lymphatic: Reports no additional hematologic/lymphatic complaints Allergic/Immunologic: Allergic/Immunologic: Reports no additional allergic/immunologic complaints [facility] Past Medical History Attestation statement: The following information was validated with the patient. Source: old records reviewed and nursing notes reviewed Medical History Late care affecting in third trimester H/O oligohydramnios in prior , currently Surgical History [place] teeth removed Family History Family History Mother Ovarian cancer Maternal Grandmother Colon cancer Social History Social History Household Members: Family Housing: House Are you a primary home visit field care manager to a significant other at home: No Do you presently have visiting nurse or other home services: No Alcohol intake: former Patient Tobacco Use Status: Former Tobacco user Special zoë needs: No Agree to transfusion: Yes Advance Directives: No Advance Directives Information Provided: Yes Physical Exam ED Vital Signs: Vital Signs - 24 hr 05/30/24 11:22 05/30/24 12:30 Temperature 98.6 F 97.7 F Pulse Rate 88 80 Respiratory Rate 18 16 Blood Pressure 130/84 125/64 Pulse Oximetry 100 97 Oxygen Delivery Method Room Air Room Air BMI result Body Mass Index 36.9 Const General: cooperative, no acute distress, alert and awake Nutritional Appearance: well nourished Orientation/consciousness: patient oriented x3 Limitations: no limitations HENMT Head: Yes normal to inspection and Yes atraumatic Ears: hearing grossly normal bilaterally and external ears normal General nose exam: Normal external nose present, no nasal discharge noted and no epistaxis Face and sinus: Yes normal facial exam, No abrasion and No laceration Mouth: Normal oral and palatal mucosa present, no drooling and no muffled voice Eyes General: appearance normal, both eyes and all related structures Periorbital: periorbital findings normal Eyelids: Yes eyelids normal Conjunctivae: conjunctivae normal Pupils: Equal, round and reactive pupils present EOM: EOMs intact bilaterally Neck Neck: Yes normal visual inspection, Yes full ROM and Yes no lymphadenopathy Chest Chest palpation & inspection: normal inspection of the chest Resp Effort & Inspection: normal respiratory effort and able to speak in complete sentences GI Inspection: Yes normal to inspection Palpation (GI): Tenderness to palpation present (GI) (to light palpation) suprapubicly General: Yes deferred Neuro General: patient oriented x3 and moves all extremities Cranial nerves: Yes Equal, round and reactive pupils present Cognition (Neuro): normal cognition Extrem General: Yes normal to inspection, Yes full ROM and Yes capillary refill normal Psych Appearance: grossly normal Mental Status: mental status grossly normal Affect: normal affect Attitude: cooperative Thought process: Normal thought process present Thought content: Normal thought content present Insight: Good insight present (Psych) Course Course Course Narrative: This is a rapid medical exam performed by Elva Rai NP: Additional HPI, ROS, PE not included below will be deferred to primary provider. Patient is a 23-year-old female presenting to the ED with complaint of heavy vaginal bleeding with large clots for the past 3.5 weeks. States passed a clot the size of a golf ball with cruz tissue in it. Going through pads/super tampons every 1.5-2 hours. Severe cramping. States period was around one month late. Initially bleeding was light and has been getting progressively heaving. New IUD placed 2 weeks ago. Plan: labs, u/s Medical Decision Making Medical Decision Making [facility] Narrative: Patient is a 23 year old assigned female at with a history of malpositioned IUD requiring replacement and anxiety presenting to the emergency department today with continued vaginal bleeding. Patient's physical exam was unremarkable. Patient's blood work showed a decrease in her HGB of approximately 2 points but was otherwise unremarkable. Patient's urine showed no acute process. Patient's transvaginal / pelvic US showed no acute process. I spoke to the OBGYN team who came down and examined the patient. They recommended having the patient STOP the PO control and have her follow up with their office outpatient. I explained my physical exam findings as well as all test results to the patient. I answered all questions asked by the patient. I stressed the importance of the patient taking her medication as directed (either prescribed or as the over the counter packaging recommends). I stressed the importance of the patient following up with her primary care provider and her OBGYN. I stressed the importance of the patient returning to the emergency department immediately if her symptoms were to worsen or if she were to develop any dizziness, shortness of breath, difficulty breathing, chest pain, blurry vision, loss of vision, nausea, vomiting, abdominal pain, fever, chills, back pain, or any other complaints. Patient verbalized agreement and understanding with this treatment plan and discharge. Differential Diagnosis Differential Diagnoses: The differential diagnosis associated with the presentation includes Dysfunctional uterine bleeding Abnormal uterine bleeding Admission/Observation Consideration of admission/observation: Escalation of care including admission/observation considered Patient would have been admitted to the hospital had her work up had any findings where hospital admission was appropriate and her clinical presentation warranted hospital admission. Consult Healthcare Provider Management of the patient was discussed with: [employer] (spoke with the OBGYN team as noted in the MDM Rationale portion of this note.) Lab Data [facility] Lab Attestation statement: I reviewed the patient's lab results. My interpretation of these results are in the MDM Rationale portion of this note. 05/30/24 12:23 05/30/24 12:23 Labs: Lab Results 05/30/24 05/30/24 Range/Units 12:23 13:11 WBC 9.6 (4.8-10.8) X10*3/uL RBC 4.13 L (4.20-5.50) X10*6/uL Hgb 11.8 L (12.0-16.0) g/dl Hct 35.3 L (37.0-47.0) % MCV 85.5 (80.0-98.0) fL MCH 28.6 (27.0-33.0) pg MCHC 33.4 (31.0-35.0) g/dl RDW 12.5 (11.0-16.0) % Plt Count 276 (160-400) X10*3/uL MPV 11.0 (9.4-12.3) fL Immature Gran % (Auto) 0.3 (0.0-0.4) % Neut % (Auto) 56.7 (45-73) % Lymph % (Auto) 33.8 (20-40) % [place] % (Auto) 5.8 (2-11) % Eos % (Auto) 3.1 (0-4) % Baso % (Auto) 0.3 (0-2) % Lymph # (Auto) 3.2 (1.2-4.9) X10*3/uL [place] # (Auto) 0.6 (0.1-1.2) X10*3/uL Eos # (Auto) 0.3 (0.0-0.4) X10*3/uL Baso # (Auto) 0.0 (0.0-0.2) X10*3/uL Abs Immat Gran (auto) 0.03 (0.00-0.03) X10*3/uL Absolute Neuts (auto) 5.4 (2.0-8.3) x10*3/uL Absolute Nucleated RBC 0.000 (0.0-0.012) X10*3/uL Nucleated RBC % (auto) 0.0 (0.0-0.2) /100WBC PT 11.0 (10.9-12.4) SEC INR 0.9 (0.9-1.1) Sodium 138 (135-145) mmol/L Potassium 4.8 (3.3-5.1) mmol/L Chloride 109 H (96-108) mmol/L Carbon Dioxide 19 L (22-29) mmol/L Anion Gap 15 (12-20) BUN 7 L (9-16) mg/dL Creatinine 0.68 (0.5-1.4) mg/dL Estim Creat Clear Calc 141.7 Estimated GFR > 60 Random Glucose 93 (60-115) mg/dL Calcium 9.2 (8.4-10.2) mg/dL Total Bilirubin 0.2 (0.0-1.0) mg/dL AST 61 H (5-31) U/L ALT 68 H (0-31) U/L Alkaline Phosphatase 97 (39-117) U/L Total Protein 7.9 (6.5-8.0) g/dL Albumin 3.9 (3.5-5.0) g/dL Beta HCG, Quant < 2 mIU/mL Urine Color Yellow Urine Appearance Clear Urine pH 5.5 (5.0-9.0) Ur Specific [place] 1.020 (1.005-1.025) Urine Protein Negative (Neg-Trace) mg/dL Urine Glucose (UA) Negative (Negative) mg/dL Urine Ketones Negative (Negative) mg/dL Urine Blood Large (3+) H (Negative) Urine Nitrite Negative (Negative) Ur Leukocyte Esterase Negative (Negative) Urine RBC >20 H (0-2) /HPF Urine WBC 0-5 (0-5) /HPF Ur Squamous Epith Cells 0-2 (0-2) /HPF Urine Bacteria None Seen (None Seen) Hyaline Casts 0-2 (0-2) /LPF Blood Type O Negative Antibody Screen NEGATIVE Independent Interpretation I performed an independent interpretation of an: Ultrasound Interpretation: My interpretation is in agreement with the radiologist's impression of this imaging study. EXAMINATION: US PELVIS CLINICAL INFORMATION: Heavy bleeding for several weeks COMPARISON: 05/03/2024 prior pelvic ultrasound TECHNIQUE: Ultrasound of the pelvis is performed using both transabdominal and transvaginal transducers along with Doppler. Transvaginal imaging is performed due to inadequate visualization transabdominally. FINDINGS: Uterus: The uterus is anteverted and anteflexed and measures 9.5 x 5.0 x 6.8 cm. IUD is within the fundus of the uterus and appears to be in normal position. The double wall endometrial thickness is 7 mm. The uterus is smooth in contour and has normal myometrial echogenicity. No visible fibroid. Adnexa: Both ovaries are visualized. There is normal color flow to the adnexa. There is no ovarian torsion. There is no pelvic ascites or fluid collection. Right ovary measures 3.9 x 2.4 x 1.8 cm. Calculated volume 8.8 mm. There is a physiologic cyst in the lateral aspect of the right ovary at 21 x 22 x 22 mm. Left ovary measures 2.6 x 2.0 x 2.0 cm. Calculated volume 5.8 mL. US/US pelvic and transvaginal IMPRESSION: IUD appears to be in correct position. Electronically signed by: Sonny Guillermo MD 05/30/2024 02:04 PM [facility] [place] By: Sonny Guillermo MD Signed By: Electronically signed by Sonny Guillermo MD 05/30/24 1407 Radiology Impression Discussion of test interpretation with radiology: I have reviewed the radiologist's reading. Critical Care Time Critical Care Time Critical Care Time: Yes Total Critical Care Time: 32 Attestation: I spent 32 minutes of Critical Care Time with this patient. This does not include time spent on separately reported billable procedures. Discharge Plan Discharge Clinical Impression: Abnormal vaginal bleeding Patient Disposition: Home, Self-Care Instructions: Dysfunctional Uterine Bleeding (ED) Additional Instructions: STOP the oral control. Follow up with your primary care provider and an OBGYN. Return to the emergency department immediately if your symptoms worsen or if you develop any dizziness, shortness of breath, difficulty breathing, chest pain, blurry vision, loss of vision, nausea, vomiting, abdominal pain, fever, chills, back pain, or any other complaints. Prescriptions: No Action acetaminophen [Tylenol] 325 mg capsule 650 mg PO Q6H PRN (Reason: pain) Qty: 30 0RF ibuprofen 600 mg tablet 600 mg PO Q6H PRN (Reason: fever or pain) Qty: 30 0RF desogestrel-ethinyl estradiol [Apri] 0.15-0.03 mg tablet 1 tab PO DAILY Qty: 28 0RF ferrous sulfate 325 mg (65 mg iron) tablet 325 mg PO DAILY Qty: 30 0RF Vitamin Plus Low Iron 27 mg iron- 1 mg tablet 1 tab PO DAILY Qty: 90 4RF Referrals: Mejia,Amy, PHARMACY TECH [employer]UST[employer]ER [employer]ICE [Primary Care Provider] - 1 Week Say Saravia MD [Physician] - Stand Alone Forms: Work/School Release Print Language: Sinhala
[2024-05-30 11:22] VITALS: BP 130/84; PULSE 88; RESP 18; TEMP 37; O2SAT 100; BMI 36.9
[2024-05-30 12:29] LABS: MANUAL DIFF FLAG NO
[2024-05-30 12:30] VITALS: BP 125/64; PULSE 80; RESP 16; TEMP 36.5; O2SAT 97
[2024-05-30 12:32] LABS: Appearance Urine Clear; Basophils Percent Auto 0.3 % (0-2); Color Urine Yellow; Eosinophils Absolute Auto 0.3 X10*3/uL (0.0-0.4); Eosinophils Percent Auto 3.1 % (0-4); Glucose Urine UA Negative (Negative); Hematocrit 35.3 % (37.0-47.0); Hemoglobin 11.8 g/dl (12.0-16.0); Imm Gran Abs Auto 0.03 X10*3/uL (0.00-0.03); Imm Gran Pct Auto 0.3 % (0.0-0.4); Leukocyte Esterase Urine Negative (Negative); Lymphocytes Absolute Auto 3.2 X10*3/uL (1.2-4.9); Lymphocytes Percent Auto 33.8 % (20-40); Mean Corpuscular HGB Conc 33.4 g/dl (31.0-35.0); Mean Corpuscular Hemoglobin 28.6 pg (27.0-33.0); Mean Corpuscular Volume 85.5 fL (80.0-98.0); Monocytes Absolute Auto 0.6 X10*3/uL (0.1-1.2); Monocytes Percent Auto 5.8 % (2-11); Neutrophils Absolute Auto 5.4 x10*3/uL (2.0-8.3); Neutrophils Percent Auto 56.7 % (45-73); Nitrite Urine Negative (Negative); PH 5.5 (5.0-9.0); Platelet Count 276 X10*3/uL (160-400); Red Blood Count 4.13 X10*6/uL (4.20-5.50); Red Cell Distribution Width 12.5 % (11.0-16.0); UMIC TRIGGER UACC YES; Urine Blood Large (3+) (Negative); Urine Ketones Negative (Negative); Urine Protein Negative (Neg-Trace); White Blood Count 9.6 X10*3/uL (4.8-10.8)
[2024-05-30 12:36] LABS: Bacteria Urine None Seen (None Seen); Hyaline Casts Urine 0-2 /LPF (0-2); RBC Urine >20 /HPF (0-2); Squamous Epithelial Cell Urine 0-2 /HPF (0-2); WBC Urine 0-5 /HPF (0-5)
[2024-05-30 12:41] LABS: INTERNATIONAL NORM RATIO 0.9 (0.9-1.1)
[2024-05-30 12:53] LABS: Alanine Aminotransferase 68 U/L (0-31); Albumin Level 3.9 g/dL (3.5-5.0); Alkaline Phosphatase 97 U/L (39-117); Anion Gap 15 (12-20); Aspartate Amino Transferase 61 U/L (5-31); Bilirubin Total 0.2 mg/dL (0.0-1.0); Blood Urea Nitrogen 7 mg/dL (9-16); Calcium 9.2 mg/dL (8.4-10.2); Carbon Dioxide 19 mmol/L (22-29); Chloride 109 mmol/L (96-108); Creatinine Clr Calc Pharmacy 141.7; Estimated Glomerular Filt Rate > 60; Glucose Random 93 mg/dL (60-115); Potassium 4.8 mmol/L (3.3-5.1); Sodium 138 mmol/L (135-145); Total Protein 7.9 g/dL (6.5-8.0)
[2024-05-30 13:09] LABS: HCG Quantitative < 2 mIU/mL
--- NOTE | 2024-05-30 15:07 | PM.GYNCN ---
LABORER HEADING - CN: HPI Data of Consult Consult date: 05/30/24 Primary Care Provider: Amy Mejia NP Consult Narrative Narrative: I was consulted on Harjeet Frazier who is a 23 year old female presented to emergency room complaining of three-week history of vaginal bleeding since ParaGard IUD insertion associated with pelvic cramps and passage of blood clots. She was seen here in the ED on 05/28/2024 and was discharged on desogestrel-ethinyl estradiol [Apri] 0.15-0.03 mg tablet once a day x 28 days and ibuprofen 600 mg every 6 hours for pain. HCG done in the emergency room today was less than 2 cc:: CC: OB [facility] Past Medical History Medical History Late care affecting in third trimester H/O oligohydramnios in prior , currently Family History Family History Mother Ovarian cancer Maternal Grandmother Colon cancer Surgical History Surgical History [place] teeth removed Social History Social History Household Members: Family Housing: House Are you a primary child care center assistant director to a significant other at home: No Do you presently have visiting nurse or other home services: No Alcohol intake: former Patient Tobacco Use Status: Former Tobacco user Special zoë needs: No Agree to transfusion: Yes Advance Directives: No Advance Directives Information Provided: Yes Meds Allergies Allergy/AdvReac Type Severity Reaction Status Date / Time pineapple [PINEAPPLE] Allergy Intermediate HIVES Verified 05/30/24 11:23 LABORER HEADING Physical Exam Vitals Vital signs: Temp Pulse Resp BP Pulse Ox O2 Del Method 97.7 F 80 16 125/64 97 Room Air 05/30/24 12:30 05/30/24 12:30 05/30/24 12:30 05/30/24 12:30 05/30/24 12:30 05/30/24 12:30 BMI result Body Mass Index 36.9 Female Genitalia (Pelvic) Bladder/Urethra: Normal meatus Vulva: No lesions Vagina: Nontender Cervix: Grossly normal Uterus: Normal size Adnexa/Parametria: Adnexal Tenderness: None, Adnexal Mass: None, Parametrial Tenderness: None and Parametrial Mass: None Additional Comments: Minimal blood per vagina No evidence of active vaginal bleeding LABORER HEADING - Results Labs 05/30/24 12:23 05/30/24 12:23 Labs: Short CBC 05/30/24 Range/Units 12:23 WBC 9.6 (4.8-10.8) X10*3/uL Hgb 11.8 L (12.0-16.0) g/dl Hct 35.3 L (37.0-47.0) % Plt Count 276 (160-400) X10*3/uL BMP 05/30/24 12:23 Sodium 138 Potassium 4.8 Chloride 109 H Carbon Dioxide 19 L BUN 7 L Creatinine 0.68 Calcium 9.2 Liver Function 05/30/24 Range/Units 12:23 Total Bilirubin 0.2 (0.0-1.0) mg/dL AST 61 H (5-31) U/L ALT 68 H (0-31) U/L Alkaline Phosphatase 97 (39-117) U/L Albumin 3.9 (3.5-5.0) g/dL Urine 05/30/24 Range/Units 12:23 Urine Color Yellow Urine Appearance Clear Urine pH 5.5 (5.0-9.0) Ur Specific [place] 1.020 (1.005-1.025) Urine Protein Negative (Neg-Trace) mg/dL Urine Glucose (UA) Negative (Negative) mg/dL Antibody Screen Antibody Screen NEGATIVE 05/30/24 13:11 Imaging US - abdomen: Radiologist's impression: ITS Impressions Pelvic/Transvag US 05/30/24 11:42 IMPRESSION: IUD appears to be in correct position. Electronically signed by: Sonny Guillermo MD 05/30/2024 02:04 PM [facility] [place] and Plan (1) Abnormal uterine bleeding: Status: Acute GC/CT with BV panel and Trichomonas collected. HCG done in the emergency room today is less than 2. H&H mild drop compared to last H&H few days ago but not significant. Instructions given the patient to discontinue Apri ailin. And follow-up in the office within few days to discuss different options of control, to come back to emergency room in case of heavy vaginal bleeding, pelvic cramping and or pain, fever above 100.4. All questions answered, the patient verbalized understanding
[2024-05-30 15:55] VITALS: BP 111/70; PULSE 89; RESP 16; TEMP 36.7; O2SAT 96
[2024-05-30 16:48] LABS: Bacterial Vaginosis PCR NEGATIVE (Negative); Candida Group PCR DETECTED (Not Detect); Candida glab krusei PCR NOT DETECTED (Not Detect); Trichomonas vaginalis PCR NOT DETECTED (Not Detect)
[2024-05-30 17:19] LABS: CT PCR NOT DETECTED (Not Detect.); NG PCR NOT DETECTED (Not Detect.)
== END 2024-05-30 15:56 | disposition home or self-care (01) ==
PROVIDERS: Obstetrics & Gynecology; Registered Nurse Emergency; Emergency Provider Emergency Medicine; PCP Nurse Practitioner Primary Care
DX: N93.9 Abnormal uterine and vaginal bleeding, unspecified (principal); N92.0 Excessive and frequent menstruation with regular cycle; R10.2 Pelvic and perineal pain; Z79.899 Other long term (current) drug therapy; Z87.891 Personal history of nicotine dependence
CPT/HCPCS: 0352U; 36415; 76830; 76856; 80053; 81001; 84702; 85025; 85610; 86850; 86900; 86901; 87491; 87591; 99284

== ENCOUNTER → 2024-05-30 12:24 | Outpatient (BNV) | payer MEDICAID, SELFPAY | PROVIDERS: Emergency Provider Emergency Medicine; PCP Nurse Practitioner Primary Care; Visit Provider Obstetrics & Gynecology | DX: N93.9 Abnormal uterine and vaginal bleeding, unspecified (principal) | CPT/HCPCS: 99283 ==

== ENCOUNTER 2024-06-12 09:36 | Outpatient (REF) | payer MEDICAID, SELFPAY ==
[2024-06-12 12:26] LABS: Alanine Aminotransferase 67 U/L (0-31); Albumin Level 4.3 g/dL (3.5-5.0); Alkaline Phosphatase 99 U/L (39-117); Aspartate Amino Transferase 46 U/L (5-31); Bilirubin Direct < 0.2 mg/dL (0.0-0.5); Bilirubin Total 0.2 mg/dL (0.0-1.0); Cholesterol 155 mg/dL (<200); HDL Cholesterol 31 mg/dL (>40); LDL Cholesterol Calculated 105 mg/dL (<100); Total Protein 7.7 g/dL (6.5-8.0); Triglycerides 98 mg/dL (<150)
== END 2024-06-12 09:37 | disposition home or self-care (01) ==
LOC: HO.HHCL 09:36
PROVIDERS: Visit Provider Nurse Practitioner Primary Care
DX: E78.00 Pure hypercholesterolemia, unspecified (principal); R79.89 Other specified abnormal findings of blood chemistry
CPT/HCPCS: 36415; 80061; 80076

== ENCOUNTER 2024-06-30 08:22 | Outpatient (REF) | payer MEDICAID, SELFPAY ==
--- NOTE | ~2024-06-30 | US_ITS ---
EXAMINATION: US ABDOMEN COMPLETE CLINICAL INFORMATION: Transaminitis. COMPARISON: None available. TECHNIQUE: Real-time imaging of the abdominal viscera. FINDINGS: PANCREAS: Obscured by bowel gas not visualized. ABDOMINAL AORTA: The proximal, mid, and distal segments are normal in caliber. INFERIOR VENA CAVA: Visualized portions are normal. LIVER: Enlarged measuring up to 22 cm The liver contour is normal. Increased echogenicity of the liver parenchyma, this can be seen in the setting of hepatic steatosis or liver parenchymal disease. No focal hepatic lesion. There is no intrahepatic biliary duct dilatation seen. GALLBLADDER: The gallbladder is physiologically distended without evidence of stones, sludge, wall thickening or pericholecystic fluid. Echogenic structure adherent to the gallbladder wall likely small polyps measuring up to 6 mm. COMMON BILE DUCT: Normal in caliber measuring 0.2 cm in diameter. RIGHT KIDNEY: No hydronephrosis. No renal calculi or focal parenchymal lesions. The kidney measures 9.7 cm in maximum dimension. LEFT KIDNEY: No hydronephrosis. No renal calculi or focal parenchymal lesions. The kidney measures 9.1 cm in maximum dimension. SPLEEN: Mildly enlarged The spleen measures 12.8 cm in maximum dimension. FREE FLUID: None. US/US abdomen complete IMPRESSION: 1. Hepatosplenomegaly. 2. Increased echogenicity of the liver parenchyma, this can be seen in the setting of hepatic steatosis or liver parenchymal disease. 3. Echogenic structure adherent to the gallbladder wall likely gallbladder polyps measuring up to 6 mm. Attention to follow-up recommended. Consider follow-up ultrasound in 6 months. Electronically signed by: Viky Deleon MD 07/16/2024 01:07 PM [facility]
== END 2024-06-30 08:23 | disposition home or self-care (01) ==
LOC: HO.US 08:22
PROVIDERS: PCP Nurse Practitioner Primary Care; Visit Provider Nurse Practitioner Primary Care
DX: R74.01 Elevation of levels of liver transaminase levels (principal)
CPT/HCPCS: 76700

== ENCOUNTER 2024-08-10 12:53 | Outpatient (REF) | payer MEDICAID, SELFPAY ==
--- NOTE | ~2024-08-10 | XR_ITS ---
CLINICAL HISTORY: atraumatic knee pain 2 view left knee Comparison: None Findings: No fractures or dislocations. No significant arthritic change or erosions. No joint effusion. No radiopaque foreign body. IMPRESSION: 1. No acute findings. This document has been electronically signed by: Jana Wilson MD on 08/12/2024 05:43:39
--- NOTE | ~2024-08-10 | XR_ITS ---
CLINICAL HISTORY: atraumatic knee pain 2 view right knee Comparison: None Findings: Bones intact. No dislocations. No significant loss of joint space, osteophytes, or erosions. No joint effusion. No radiopaque foreign body. IMPRESSION: 1. No acute findings. This document has been electronically signed by: Jana Wilson MD on 08/12/2024 05:41:13
== END 2024-08-10 12:54 | disposition home or self-care (01) ==
LOC: HO.XRAY 12:53
PROVIDERS: PCP Nurse Practitioner Primary Care; Visit Provider Nurse Practitioner Primary Care
DX: M25.561 Pain in right knee (principal); M25.562 Pain in left knee
CPT/HCPCS: 73560

== ENCOUNTER → 2024-08-10 12:58 | Outpatient (BNV) | payer MEDICAID, SELFPAY | PROVIDERS: PCP Nurse Practitioner Primary Care; Visit Provider Radiology Diagnostic Radiology | DX: M25.562 Pain in left knee (principal); M25.561 Pain in right knee | CPT/HCPCS: 73560 ==

== ENCOUNTER 2024-09-14 09:09 | Outpatient (REF) | payer MEDICAID, SELFPAY ==
--- OUTSIDE RECORDS SUMMARY | 2024-09-14 09:50 | XMS_ITS | Encounter Summary ---
Author Organization [employer] Address [address] [facility] 7t [place] [address] Care Team Providers Care School Athletic Director Name Role Phone Amy Mejia Primary Care Provider [phone] Reason for Visit * Reason Onset Date Comments Nurse Triage 03/26/2023 Encounter Details Date Type Department Care Team ([facility] st Contact Info) Description 03/26/2023 Telephone [facility] MEDICINE [address] [place], [place] [phone] Amy Mejia ANP [address] [place] [address] Nurse Triage Social History Tobacco Use Types Packs/Day Years Used Date Smoking Tobacco: Never Smokeless Tobacco: Never Depression Answer Date Recorded Patient Health Questionnaire-9 Score 5 02/25/2023 Depression Answer Date Recorded Patient Health Questionnaire-2 Score 2 02/25/2023 Comments Unknown Sex and Gender Information Value Date Recorded Sex Assigned at Female 05/25/2022 10:29 AM EDT Legal Sex Female 10:29 AM EDT Gender Identity Female 05/25/2022 10:29 AM EDT Sexual Orientation Something else 05/25/2022 10 :29 AM EDT documented as of this encounter Miscellaneous Notes * Telephone Encounter - Rufina Salazar LPN - 03/26/2023 10:45 AM EDT Unable to reach patient at listed number, Messages left to return call to [phone]. * Telephone Encounter - Radha Sainz - 03/26/2023 10:13 AM EDT Patient calling to report heartburn . Patient speaks Occitan. Advised triage nurse will call patient back. documented in this encounter Plan of Treatment Upcoming Encounters Date Type Department Care Team (Late st Contact Info) Description 10/10/2024 9:15 AM EDT Office Visit [facility] MEDICINE [address] [place] [address] Amy Mejia ANP [address] [place] [address] 10/13/2024 2:30 PM EDT Office Visit [facility] OPTOMETRY [address] [place] [address] Sami, Lashon, OD [address] [place] [address] documented as of this encounter Visit Diagnoses Not on filedocumented in this encounter Additional Health Concerns Assessment Noted Time PHQ-9 Depression Total Score: 5 02/26/20 23 1:11 PM EDT documented as of this encounter Care Teams School Athletic Director Relationship Specialty Start Date End Date Amy Mejia ANP [address] [place] [address] PCP - General Family Medicine 02/01/23 Marianna Mcgovern Wind Energy Project Manager 02/03/24 documented as of this encounter
--- OUTSIDE RECORDS SUMMARY | 2024-09-14 09:50 | XMS_ITS | Encounter Summary ---
Author Organization [employer] Address [address] [facility] 7t [place] [address] Care Team Providers Care Stripper Soft Plastic Name Role Phone Amy Mejia Primary Care Provider [phone] Encounter Details Date Type Department Care Team ([facility] st Contact Info) Description 09/07/2024 Orders Only [facility] MEDICINE [address] [place], [place] [phone] Jessie Patel CNM [address] [place], [place] [phone] Missed period (Primary Dx); Hot flashes Social History Tobacco Use Types Packs/Day Years Used Date Smoking Tobacco: Never Passive Smoke Exposure: Never Smokeless Tobacco: Never Alcohol Use Standard Drinks/Week Comments Not Currently 0 (1 standard drink = 0.6 oz pur e alcohol) occasionally Depression Answer Date Recorded Patient Health Questionnaire-9 Score 18 03/23/2024 Patient Health Questionnaire-9 Score 18 03/23/2024 Last PHQ-9: Questionnaire Data Not on file 0 03/23/2024 Housing Stability Answer Date Recorded What is your housing situation today? I do not have housing (Staying with others, in a hotel, in a nursing home, living outside on the street, on a beach, in a car, or in a park 03/23/[address] you li ve. Do you have problems with any of the following? Pests such as bugs, ants, or mice 03/23/2024 Food Insecurity Answer Date Recorded Within the past 12 months, y ou worried that your food would run out before you got money to buy more: Often true 03/23/2024 Within the past 12 months,th e food you bought just didn't last and you didn't have enough money to get more: Often true Transportation Answer Date Recorded In the past 12 months, has l ack of transportation kept you from medical appts, meetings, work or from getting things needed for daily living? No 03/23/2024 Utilities Answer Date Recorded In the past 12 months, has t he electric, gas, oil or water company threatened to shut off services in your home? Already shut Off 03/23/2024 Depression Answer Date Recorded Patient Health Questionnaire-2 Score 4 03/23/2024 Internet Access Answer Date Recorded Internet Access Q1 No 03/24/2024 Internet Access Q2 Not on file 03/24/2024 Comments No Sex and Gender Information Value Date Recorded Sex Assigned at Female 05/25/2022 10:29 AM EDT Legal Sex Female 10:29 AM EDT Gender Identity Female 05/25/2022 10:29 AM EDT Sexual Orientation Something else 05/25/2022 10 :29 AM EDT documented as of this encounter Plan of Treatment Upcoming Encounters Date Type Department Care Team (Late st Contact Info) Description 10/10/2024 9:15 AM EDT Office Visit [facility] MEDICINE [address] [place] [address] Amy Mejia, JOSE [address] [place] [address] 10/13/2024 2:30 PM EDT Office Visit [facility] OPTOMETRY [address] [place] [address] Sami, Lashon, OD [address] [place] [address] Scheduled Orders Name Type Priority Associated Diagnoses Orde r Schedule TSH W/Reflex to FT4 Lab Routine Missed period Hot flashes Expected: 09/07/2024 (Approximate), Expires: 09/07/2025 Prolactin Lab Routine Missed period Hot flashes Expected: 09/07/2024 (Approximate), Expires: 09/07/2025 documented as of this encounter Visit Diagnoses Diagnosis Missed period- Primary Hot flashes documented in this encounter Additional Health Concerns Assessment Noted Time PHQ-9 Depression Total Score: 18 024 2:56 PM EDT documented as of this encounter Care Teams Stripper Soft Plastic Relationship Specialty Start Date End Date Amy Mejia ANP [address] [place] [address] PCP - General Family Medicine 02/01/23 Marianna Mcgovern Mortgage Loan Processing Clerk 02/03/24 documented as of this encounter
--- OUTSIDE RECORDS SUMMARY | 2024-09-14 09:51 | XMS_ITS | Encounter Summary ---
Author Organization [employer] Address [address] [facility] [address] [place] [address] Care Team Providers Care International Controller Name Role Phone Amy Mejia Primary Care Provider [phone] Reason for Visit * Reason Comments Late Period Encounter Details Date Type Department Care Team (Late st Contact Info) Description 09/07/2024 9:00 AM EST Office Visit [facility] [address] [place] [address] Merlyn Kyle MD [address] [place], [place] [phone] Missed period (Primary Dx) Social History Tobacco Use Types Packs/Day Years Used Date Smoking Tobacco: Never Passive Smoke Exposure: Never Smokeless Tobacco: Never Tobacco Cessation:Counseling Given: Not Answered Alcohol Use Standard Drinks/Week Comments Not Currently [...] with others, in a hotel, in a care home, living outside on the street, on [...] AM EDT documented as of this encounter Last Filed Vital Signs Vital Sign Reading Time Taken Comments Blood Pressure 148/91 09/07/2024 9:01 AM EST Pulse 105 09/07/2024 9:01 AM EST Temperature 36.7 ??C (98 ??F) 09/07/2024 9:01 AM EST Respiratory Rate 17 09/07/2024 9:01 AM EST Oxygen Saturation - - Inhaled Oxygen Concentration - - Weight 99.9 kg (220 lb 3.2 oz) 09/07/2024 9:01 A M EST Height 160 cm (5' 3 ) 09/07/2024 9:01 AM EST Body Mass Index 39.01 09/07/2024 9:01 AM EST documented in this encounter Progress Notes * Merlyn Kyle MD - 09/07/2024 9:00 AM EST Subjective Patient ID: Stephanie Frazier is a 24 y.o. female who presents for Late Period. Is here for test She missed her periods Review of Systems Constitutional: Negative. Respiratory: Negative. Negative for shortness of breath. Cardiovascular: Negative for chest pain and palpitations. Gastrointestinal: Negative. Genitourinary: Positive for menstrual problem. Musculoskeletal: Negative for neck pain. Neurological: Negative for headaches. Objective Physical Exam Constitutional: Appearance: Normal appearance. Cardiovascular: Rate and Rhythm: Normal rate and regular rhythm. Pulses: Normal pulses. Heart sounds: Normal heart sounds. Pulmonary: Effort: Pulmonary effort is normal. Abdominal: General: Abdomen is flat. Neurological: Mental Status: She is alert. Assessment/Plan Diagnoses and all orders for this visit: Missed period Comments: UPT neg Advised to repeat test if periods dont occur in the next 10days documented in this encounter Plan of Treatment Upcoming Encounters Date Type Department Care Team (Late st Contact Info) Description 10/10/2024 9:15 AM EDT Office Visit [facility] MEDICINE [address] [place] [address] Amy Mejia ANP [address] [place] [address] 10/13/2024 2:30 PM EDT Office Visit [facility] OPTOMETRY [address] [place] [address] Sami, Lashon, OD [address] [place] [address] documented as of this encounter Procedures Procedure Name Priority Date/Time Associated Diagnosis Comments POCT , URINE Routine 09/07/2024 9:19 AM EST Missed period documented in this encounter Results * POCT , urine manually resulted (09/07/2024 9:19 AM EST) Preg Test, Ur Negative Negative, Indeterminate, None Detected, Invalid, Specimen unsatisfactory for evaluation, Weakly Positive Urine 09/07/2024 9:19 AM EST us Merlyn Kyle MD POINT OF CARE TEST ENTER/EDIT OR DERABLES Final Result documented in this encounter Visit Diagnoses Diagnosis Missed period- Primary documented in this encounter Additional Health Concerns Assessment Noted Time PHQ-9 Depression Total Score: 18 08//2 024 2:56 PM EDT documented as of this encounter Care Teams International Controller Relationship Specialty Start Date End Date Amy Mejia ANP [address] [place] [address] PCP - General Family Medicine 02/01/23 Marianna Mcgovern Ciso 02/03/24 documented as of this encounter
--- OUTSIDE RECORDS SUMMARY | 2024-09-14 09:51 | XMS_ITS | Encounter Summary ---
Author Organization [employer] Address [address] [facility] 7t [place] [address] Care Team Providers Care Professional Driver Name Role Phone Amy Mejia Primary Care Provider [phone] Reason for Visit * Reason Onset Date Comments Medication Question 02/03/2024 Encounter Details Date Type Department Care Team ([facility] st Contact Info) Description 02/03/2024 Telephone [facility] MEDICINE [address] [place], [place] [phone] Amy Mejia ANP [address] [place] [address] Medication Question Social History Tobacco Use Types Packs/Day Years Used Date Smoking Tobacco: Never Passive Smoke Exposure: Never Smokeless Tobacco: Never Alcohol Use Standard Drinks/Week Comments Yes 0 (1 standard drink = 0.6 oz pur e alcohol) occasionally Depression Answer Date Recorded Patient Health Questionnaire-9 Score 8 02/03/2024 Patient Health Questionnaire-9 Score 8 02/03/2024 Last PHQ-9: Questionnaire Data Not on file 0 02/03/2024 Housing Stability Answer Date Recorded What is your housing situation today? I have nemo bullock 05/11/[address] you li ve. Do you have problems with any of the following? None of the above 05/11/2023 Food Insecurity Answer Date Recorded Within the past 12 months, y ou worried that your food would run out before you got money to buy more: Never True 05/11/2023 Within the past 12 months,th e food you bought just didn't last and you didn't have enough money to get more: Never True Transportation Answer Date Recorded In the past 12 months, has l ack of transportation kept you from medical appts, meetings, work or from getting things needed for daily living? Yes, it has kept me from medical appointments or getting medications. 12/10/2023 Utilities Answer Date Recorded In the past 12 months, has t he electric, gas, oil or water company threatened to shut off services in your home? No 05/11/2023 Depression Answer Date Recorded Patient Health Questionnaire-2 Score 0 02/03/2024 Comments Unknown Sex and Gender Information Value Date Recorded Sex Assigned at Female 05/25/2022 10:29 AM EDT Legal Sex Female 10:29 AM EDT Gender Identity Female 05/25/2022 10:29 AM EDT Sexual Orientation Something else 05/25/2022 10 :29 AM EDT documented as of this encounter Miscellaneous Notes * Telephone Encounter - Juanita Tristan - 02/04/2024 3:06 PM EDT Tc from pt requesting status on medication once it has been sent. Please contact at [phone] * Telephone Encounter - Radha Sainz - 02/03/2024 12:18 PM EDT Tc from pt calling in to inform medication Methylphenidate HCl (methylphenidate ER) 18 MG 24 hr tablet is not being covered by insurance . Was inform insurance would only cover the name brand. documented in this encounter Plan of Treatment Upcoming Encounters Date Type Department Care Team (Late st Contact Info) Description 10/10/2024 9:15 AM EDT Office Visit [facility] MEDICINE [address] [place] [address] Amy Mejia ANP [address] [place] [address] 10/13/2024 2:30 PM EDT Office Visit [facility] OPTOMETRY [address] [place] [address] Lashon Gallardo, OD [address] [place] [address] documented as of this encounter Visit Diagnoses Not on filedocumented in this encounter Additional Health Concerns Assessment Noted Time PHQ-9 Depression Total Score: 8 02/03/20 24 10:56 AM EDT documented as of this encounter Care Teams Professional Driver Relationship Specialty Start Date End Date Amy Mejia ANP [address] [place] [address] PCP - General Family Medicine 02/01/23 Marianna Mcgovern Securities Dealer 02/03/24 documented as of this encounter
--- OUTSIDE RECORDS SUMMARY | 2024-09-14 09:51 | XMS_ITS | Encounter Summary ---
Author Organization [employer] Address [address] [facility] 7t [place] [address] Care Team Providers Care Head Boys Golf Coach Name Role Phone Amy Mejia Primary Care Provider [phone] Reason for Visit * Reason Onset Date Comments Results 05/04/2024 Encounter Details Date Type Department Care Team ([facility] st Contact Info) Description 05/04/2024 Telephone [facility] [address] [place] [address] Amy Mejia ANP [address] [place] [address] Results Social History Tobacco Use Types Packs/Day Years [...] with others, in a hotel, in a custodial, living outside on the street, on a [...] encounter Miscellaneous Notes * Telephone Encounter - Jessie Patel CNM - 05/05/2024 7:47 AM EDT That's fine - thanks! * Telephone Encounter - Nat Collins RN - 05/04/2024 2:42 PM EDT Telephone call to pt per request from Jessie Patel CNM. Pt requests IUD removal, does not want to go to [place], and states she wants to try a control patch afterward. Advised pt that30 min appt slot is ideal but pt requested soonest appt due to pain and spotting. Advised pt to go to ED if pain is severe or if bleeding becomes substantial. Scheduled pt for soonest appt - 15 min appt on 05/10, advised pt message would be sent to Jessie for guidance and it may have to be moved to 30 min slot. Pt verbalized understanding and in agreementwith plan, to call clinic PRN. Could you please contact Bee? See my message to her from earlier today regarding pelvic ultrasound results? I am not in a place where I can make phone calls. Thanks! -- Hi Bee - Your IUD is in your uterus, which is good, but one of the arms is pushing into the wall of the uterus. This might be causing the pain you are having. I would advise removal if you are still having pelvic pain. and replacement with a new one, or a different method if you want. Usually, I can remove the IUD in the office, but there is a small chance it might not come out easily and will need to be removed with a erp project manager. Would you like to have appointment here or would you like me to send you back to [facility]? I got a message from the radiology department that your IUD is in your uterus, so that is good! I need to wait for the final report to make sure it is in good position, but it sounds like nothing worrisome is going on. I will be in touch as soon as I get the official report. Jessie Avalos * Telephone Encounter - Jessie Patel CNM - 05/04/2024 12:28 PM EDT Could you please contact Bee? See my message to her from earlier today regarding pelvic ultrasound results? I am not in a place where I can make phone calls. Thanks! * Telephone Encounter - Radha Sainz - 05/04/2024 11:39 AM EDT Tc from pt requesting to speak with you regarding a my chart message she received today. documented in this encounter Plan of Treatment Upcoming Encounters Date Type Department Care Team (Late st Contact Info) Description 10/10/2024 9:15 AM EDT Office Visit [facility]IC[facility] [address] [place] [address] Amy Mejia ANP [address] [place] [address] 10/13/2024 2:30 PM EDT Office Visit [facility] OPTOMETRY [address] [place] [address] Lashon Gallardo, JAIME [address] [place] [address] documented as of this encounter Visit Diagnoses Not on filedocumented in this encounter Additional Health Concerns Assessment Noted Time PHQ-9 Depression Total Score: 18 03/23/ 024 2:56 PM EDT documented as of this encounter Care Teams Head Boys Golf Coach Relationship Specialty Start Date End Date Amy Mejia ANP [address] [place] [address] PCP - General Family Medicine 02/01/23 Marianna Mcgovern Support Services Coordinator 02/03/24 documented as of this encounter
--- OUTSIDE RECORDS SUMMARY | 2024-09-14 09:51 | XMS_ITS | Encounter Summary ---
Author Organization [employer] Address [address] [facility] 7t [place] [address] Care Team Providers Care Senior Electronics Design Engineer Name Role Phone Amy Mejia Primary Care Provider [phone] Encounter Details Date Type Department Care Team ([facility] Contact Info) Description 08/16/2024 Telephone [facility] MEDICINE [address] [place], [place] [phone] Janessa Merida RN [address] [place] [address] Social History Tobacco Use Types Packs/Day Years [...] with others, in a hotel, in a group home, living outside on the street, on [...] encounter Miscellaneous Notes * Telephone Encounter - Janessa Merida RN - 08/16/2024 2:20 PM EST Images from the original note were not included. Triage call to Pt regarding Pt portal message below. Attempted to contact x2. Pt didn't answer. Unable to leave a message. Stephanie [place] [facility] Clinical Support (supporting Jessie Patel CNM)2 hours ago (11:27AM) BW I'm still getting hot flashes throughout the day and they're worse during the night, they're happening daily documented in this encounter Plan of Treatment Upcoming Encounters Date Type Department Care Team (Late st Contact Info) Description 10/10/2024 9:15 AM EDT Office Visit [facility] MEDICINE [address] [place], [place] [phone] Amy Mejia ANP [address] [place], [place] [phone] 10/13/2024 2:30 PM EDT Office Visit [facility] OPTOMETRY [address] [place] [address] Lashon Gallardo, OD [address] [place] [address] documented as of this encounter Visit Diagnoses Not on filedocumented in this encounter Additional Health Concerns Assessment Noted Time PHQ-9 Depression Total Score: 18 024 2:56 PM EDT documented as of this encounter Care Teams Senior Electronics Design Engineer Relationship Specialty Start Date End Date Amy Mejia ANP [address] [facility] [address] PCP - General Family Medicine 02/01/23 Marianna Mcgovern Him Director 02/03/24 documented as of this encounter
--- OUTSIDE RECORDS SUMMARY | 2024-09-14 09:51 | XMS_ITS | Encounter Summary ---
Author Organization [employer] Address [address] [facility] 7t [place] [address] Care Team Providers Care Fisher Hand Line Name Role Phone Amy Mejia Primary Care Provider [phone] Encounter Details Date Type Department Care Team (Latest Contact Info) Description 08/22/2024 6:20 PM EST Office Visit [facility] [address] [place], [place] [phone] Flavia Reid MD [address] [place] [address] RSV (acute bronchiolitis due to respiratory syncytial virus) (Primary Dx) Social History Tobacco Use Types [...] with others, in a hotel, in a intermediate, living outside on the street, on a [...] Sign Reading Time Taken Comments Blood Pressure 138/80 08/22/2024 7:25 PM EST Pulse 98 08/22/2024 7:25 PM EST Temperature 36.4 ??C (97.5 ??F) 08/22/2024 4:58 PM ES T Respiratory Rate 18 08/22/2024 4:58 PM EST Oxygen Saturation 96% 08/22/2024 4:58 PM EST RA Inhaled Oxygen Concentration - - Weight - - Height - - Body Mass Index - - documented in this encounter Progress Notes * [place] Marc RN - 08/22/2024 6:20 PM EST Pt presents to Walk In reporting fever, h/a, congestion, ST, cough with flecks of red blood and SOB x4 days, also reporting under a lot of stress. Mom reports she took ibuprofen about one to twohours ago. Mom reports older five year old son has RSV and younger children with similar symptoms. * Flavia Reid MD - 08/22/2024 6:20 PM EST Subjective History was provided by the patient. Stephanie Frazier is a 24 y.o. female who presents for evaluation of symptoms of a URI. Symptoms include cough, shortness of breath, runny nose, chills, and congestion. Onset of symptoms was 3 days ago, unchanged since that time. Associated negative symptoms include vomiting and diarrhea. Evaluation to date:dx with RSV Treatment to date: used albuterol yesterday Objective Vitals: 08/22/24 1658 08/22/24 1925 BP: (!) 145/80 138/80 BP Location: Right arm Patient Position: Sitting BP Cuff Size: Adult Pulse: (!) 120 98 Resp: 18 Temp: 97.5 ??F (36.4 ??C) TempSrc: Temporal SpO2: 96% Physical Exam Constitutional: Appearance: Normal appearance. HENT: Right Ear: Tympanic membrane normal. Left Ear: Tympanic membrane normal. Nose: Congestion and rhinorrhea present. Mouth/Throat: Pharynx: Oropharynx is clear. No oropharyngeal exudate. Eyes: Conjunctiva/sclera: Conjunctivae normal. Cardiovascular: Rate and Rhythm: Normal rate and regular rhythm. Heart sounds: Normal heart sounds. Pulmonary: Effort: Pulmonary effort is normal. Breath sounds: Normal breath sounds. Musculoskeletal: Cervical back: Normal range of motion. No rigidity or tenderness. Lymphadenopathy: Cervical: No cervical adenopathy. Neurological: Mental Status: She is alert. Psychiatric: Behavior: Behavior normal. No visits with results within 2 Day(s) from this visit. Latest known visit with results is: Office Visit on 07/11/2024 Component Date Value Ref Range Status Preg Test, Ur 07/11/2024 Negative Negative, Indeterminate, None Detected, Invalid, Specimen unsatisfactory for evaluation, Weakly Positive Final QC Media Lot # 07/11/2024 [id number] Final Lot# Expiration Date 07/11/2024 [id number] Final Problem List Items Addressed This Visit None Visit Diagnoses RSV (acute bronchiolitis due to respiratory syncytial virus) - Primary -No evidence of respiratory distress. Symptoms mild. -No evidence of dehydration. -Supportive care advised. -Isolation recommendations discussed. -ER precautions discussed. -Seek medical attention for worsening symptoms. documented in this encounter Plan of Treatment Upcoming Encounters Date Type Department Care Team (Late st Contact Info) Description 10/10/2024 9:15 AM EDT Office Visit [facility] [address] [place] [address] Amy Mejia ANP [address] [place] [address] 10/13/2024 2:30 PM EDT Office Visit [facility] OPT[facility] [address] [place] [address] Sami, Lashon, OD [address] [place] [address] documented as of this encounter Visit Diagnoses Diagnosis RSV (acute bronchiolitis due to respiratory syncytial virus)- Primary Acute bronchiolitis due to respiratory syncytial virus (RSV) documented in this encounter Additional Health Concerns Assessment Noted Time PHQ-9 Depression Total Score: 18 03/23/ 024 2:56 PM EDT documented as of this encounter Care Teams Fisher Hand Line Relationship Specialty Start Date End Date Amy Mejia ANP [address] [place] [address] PCP - General Family Medicine 02/01/23 Marianna Mcgovern It Software Engineer 02/03/24 documented as of this encounter
--- OUTSIDE RECORDS SUMMARY | 2024-09-14 09:51 | XMS_ITS | Encounter Summary ---
Author Organization [employer] Address [address] [place] [address] Care Team Providers Care Orthopedic Radiologic Technologist Name Role Phone Amy Mejia Primary Care Provider [phone] Reason for Visit * Reason Comments Care Management [facility] TC #[id number] Encounter Details Date Type Department Care Team ([facility] st Contact Info) Description 09/04/[address] [facility] MEDICINE [address] [place] [address] Marianna Mcgovern, MAK Care Management ([facility] TC #[id number]) Social History Tobacco Use Types Packs/Day Years [...] with others, in a hotel, in a snf, living outside on the street, on a [...] AM EDT documented as of this encounter Progress Notes * Marianna Mcgovern - 09/04/2024 11:26 AM EST CM Marianna Mcgovern RN placed outbound call for a follow up call to patient. No answer at this time. CM was unable to leave a voicemail. CM will follow up with patient within 10 business days. documented in this encounter Plan of Treatment Upcoming Encounters Date Type Department Care Team (Late st Contact Info) Description 10/10/2024 9:15 AM EDT Office Visit [facility] MEDICINE [address] [place] [address] Amy Mejia, ANP [address] [place] [address] 10/13/2024 2:30 PM EDT Office Visit [facility] OPTOMETRY [address] [place] [address] Lashon Gallardo, OD [address] [place] [address] documented as of this encounter Visit Diagnoses Not on filedocumented in this encounter Additional Health Concerns Assessment Noted Time PHQ-9 Depression Total Score: 18 024 2:56 PM EDT documented as of this encounter Care Teams Orthopedic Radiologic Technologist Relationship Specialty Start Date End Date Amy Mejia ANP [address] [place] [address] PCP - General Family Medicine 02/01/23 Marianna Mcgovern System Software Developer 02/03/24 documented as of this encounter
--- OUTSIDE RECORDS SUMMARY | 2024-09-14 09:51 | XMS_ITS | Encounter Summary ---
Author Organization [employer] Address [address] [facility] [address] [place] [address] Care Team Providers Care Cyanide Pot Tender Name Role Phone Amy Mejia Primary Care Provider [phone] Reason for Visit * Reason Onset Date Comments Prior Authorization 08/17/2024 Encounter Details Date Type Department Care Team ([facility] st Contact Info) Description 08/17/2024 Telephone [facility] MEDICINE [address] [place], [place] [phone] Marcela Segura RN [address] [place], [place] [phone] Prior Authorization Social History Tobacco Use Types Packs/Day Years [...] with others, in a hotel, in a prison, living outside on the street, on a [...] encounter Miscellaneous Notes * Telephone Encounter - Nat Collins RN - 08/18/2024 8:43 AM EST Signed PA received, faxed to [employer]. Confirmation received. * Telephone Encounter - Marcela Segura RN - 08/17/2024 9:18 AM EST PA packet generated and placed on PCP's desk. Pending signature. Please initiate pa for zepbound thanks documented in this encounter Plan of Treatment Upcoming Encounters Date Type Department Care Team (Late st Contact Info) Description 10/10/2024 9:15 AM EDT Office Visit [facility] MEDICINE [address] [place] [address] Amy Mejia ANP [address] [place] [address] 10/13/2024 2:30 PM EDT Office Visit [facility] OPTOMETRY [address] [place] [address] Lashon Gallardo OD [address] [place] [address] documented as of this encounter Visit Diagnoses Not on filedocumented in this encounter Additional Health Concerns Assessment Noted Time PHQ-9 Depression Total Score: 18 024 2:56 PM EDT documented as of this encounter Care Teams Cyanide Pot Tender Relationship Specialty Start Date End Date Amy Mejia ANP [address] [place] [address] PCP - General Family Medicine 02/01/23 Marianna Mcgovern Medical Logistics Specialist 02/03/24 documented as of this encounter
--- OUTSIDE RECORDS SUMMARY | 2024-09-14 09:51 | XMS_ITS | Clinical Summary ---
Author Organization [email or web address] Address [address] [facility] [address] [place] [address] Care Team Providers Care Corporate Counselor Name Role Phone Alexander Whitaker Primary Care Provider [phone] Allergies Active Allergy Reactions Criticality Noted Date Comments Pineapple 02/25/2023 itching and swelling Wound Dressing Adhesive 02/25/2023 Medical tape, localized reaction Medications * This document contains information received from the source organization and may not represent a complete record from that organization. sertraline (Zoloft) 50 MG tablet 100 mg. 4 Active Ventolin HFA 108 (90 Base) MCG/ACT inhalerIndicatio ns:Wheezing INHALE 2 PUFFS BY MOUTH EVERY 6 HOURS IF NEEDED FOR WHEEZING 18 g 2 4 Active norethindrone (Micronor) 0.35 MG tablet Take 1 tablet (0.35 mg) by mouth Once per day. 28 tablet 11 5 08/07/19 26 Active pantoprazole (Protonix) 40 MG EC tabletIndication s:Gastroesophage al reflux disease, unspecified whether esophagitis present Take 1 daily in AM and 1 in PM if needed; Do not crush, chew, or split. 180 tablet 1 5 Active ibuprofen 600 MG tabletIndication s:Acute pain of both knees Take 1 tablet (600 mg) by mouth every 8 (eight) hours if needed for moderate pain or fever. 90 tablet 5 09/25/19 25 Active Tirzepatide-Weig ht Management (Zepbound) 2.5 MG/0.5ML solution auto-injectorInd ications:Class 2 obesity with body mass index (BMI) of 37.0 to 37.9 in adult, unspecified obesity type, unspecified whether serious comorbidity present Inject 0.5 mL (2.5 mg) under the skin 1 (one) time per week. 2 mL 5 Active Active Problems Problem Noted Date Diagnosed Date High liver transaminase level 06/16/2024 Assessment & Plan (06/16/2024 9:47 AM EST): Unclear if related to Concerta vs Fatty Liver and changes (Pt developed Cholestasis) Last LFTs seem to be stable and Albumin is WNL. Discussed re weight reduction options including exercise, life style modifications, diet and referral to seo specialist. Recommended to decrease soda and sugary beverage consumption, increase protein intake with meals (at least 1 portion of protein with each meal) to assist with satiety, increase dietary fiber Recommended at least 150 min/week of moderate intensity exercise. She will continue off Concerta and follow up with current Psychiatrist, she has follow up with PCP for follow up LFTs. DUB (dysfunctional uterine bleeding) 06/16/2024 Assessment & Plan (06/16/2024 9:43 AM EST): Probably related to IUD, apparently triggered by Candidiasis. Candidiasis was treated and IUD was taken out. Hgb remains stable, will continue iron supplements for 3 months + OCPs (Slynd). Adult ADHD 02/03/2024 Assessment & Plan (06/16/2024 9:44 AM EST): Off Concerta and will follow up with her psychiatry. She feels safe at home and can reach out for safety. Pt requested a referral to new team and will follow up with PCP. Assessment & Plan (02/04/2024 7:20 PM EDT): -probably since childhood -will start concerta 18 mg daily; this dose is safe for -follow-up with PCP in 3 weeks to reassess its effectiveness Weight gain 02/03/2024 Overview (03/23/2024): Suspected r/t Abilify which was since stopped. Encouraging exercise, dietary changes. Assessment & Plan (02/03/2024 11:37 AM EDT): -will check metabolic panel -will discontinue Abilify depression 12/07/2023 Assessment & Plan (06/16/2024 9:43 AM EST): See Above Assessment & Plan (03/06/2024 9:31 AM EDT): During IBH Consult Harjeet presenting with depressed mood, loss of interests/pleasure , trouble concentrating, hopelessness, worthlessness and excessive worry/anxiety, difficulty controlling worry, restless/keyed up/On edge, and irritability; for a period of 0-6 mo, for some symptoms in the context of housing. Harjeet reported increase of symptoms over the last weeks. She carries a diagnosis for ADHD, Tania disorder and PPD. Pt reports that she's not taking her medication due to strong side effects (blurred vision). She's connected with [facility], Berenice Lua and reports she has an appointment with her therapist today. Concerns will be addressed with PCP regarding medication and its side effect. During today's consult Harjeet was engaged with active, reflective listening and validation of emotions. Education provided about medication and its length to work on the neuro system. Pt provided with coping strategies to utilized when symptoms increase. PLAN: (check all that apply) Continue with current services (defined as services in the past 12 months) Behavioral Health Integration Plan Internal Follow up with [facility] Patient Self Plan Patient to utilize skills provided in intervention , Patient [facility] as [facility], Patient to engage in OP therapy , and Patient to reach out to [facility] as needed. Patient is currently engage with [facility] for OP therapy. Assessment & Plan (02/04/2024 7:27 PM EDT): -depressive symptoms improved with Abilify, but patient is experiencing side effects, will try treatment for ADHD first, then reassess symptoms and treat mood disorder Healthcare maintenance 02/25/2023 Astigmatism of both eyes 02/25/2023 Mood disorder 09/24/2017 Overview (03/23/2024): Now following w/ train gateman Jose Gibbs and counselor at [facility]. Started on sertraline 50mg. PHQ9 and ISHAN 7 scores high today, 18 and 19 respectively. Declines today. Assessment & Plan (03/06/2024 9:31 AM EDT): During IB Consult Harjeet presenting with depressed mood, loss of interests/pleasure , trouble concentrating, hopelessness, worthlessness and excessive worry/anxiety, difficulty controlling worry, restless/keyed up/On edge, and irritability; for a period of 0-6 mo, for some symptoms in the context of housing. Harjeet reported increase of symptoms over the last weeks. She carries a diagnosis for ADHD, Tania disorder and PPD. Pt reports that she's not taking her medication due to strong side effects (blurred vision). She's connected with [facility], Berenice Lua and reports she has an appointment with her therapist today. Concerns will be addressed with PCP regarding medication and its side effect. During today's consult Harjeet was engaged with active, reflective listening and validation of emotions. Education provided about medication and its length to work on the neuro system. Pt provided with coping strategies to utilized when symptoms increase. PLAN: (check all that apply) Continue with current services (defined as services in the past 12 months) Behavioral Health Integration Plan Internal Follow up with [facility] Patient Self Plan Patient to utilize skills provided in intervention , Patient to reach [facility] as needed, Patient to engage in OP therapy , and Patient to reach out to [facility] as needed. Patient is currently engage with [facility] for OP therapy. Assessment & Plan (02/04/2024 7:27 PM EDT): -previously diagnosed with depression, which recently worsened due to depression -probable bipolar disorder as PCP has suspected -probable anxiety disorder according to GAD7 score -fluoxetine made her depression worse in the past -patient has tried aripiprazole for the last 2 months and is experiencing side effects -her ADHD evaluation suggests adult ADHD, patient also has anxiety symptoms, agreed to try treatment for ADHD; will try ADHD treatment since it is more effective compared to antidepressants or mood stabilizers / antipsychotics for mood disorder - patient is now connected with behavioral health service provider for CBT - likely need medications for anxiety and/or bipolar disorder since stimulant may worsen anxiety Encounters * This document contains information received from the source organization and may not represent a complete record from that organization. Date Type Department Care Team Description 09/07/2024 9:00 AM EST Office Visit [facility] [address] [address] Merlyn Kyle MD Missed period (Primary Dx) 09/07/2024 Orders Only [address] [address] Jessie Patel CNM Missed period (Primary Dx); Hot flashes 09/04/[address] [address] Marianna Mcgovern RN Care Management ([facility] TC #[id number]-lvm) 08/22/2024 6:20 PM EST [facility] [address] [address] Flavia Reid MD RSV (acute bronchiolitis due to respiratory syncytial virus) (Primary Dx) 08/17/[address] [address] Marcela Segura, cook railroad 08/16/[address] [address] Janessa Merida, MAK 08/10/2024 11:00 AM EST Office Visit [address] [address] Alexander Whitaker ANP Gallbladder polyp (Primary Dx); Transaminitis; Acute pain of both knees; Gastroesophageal reflux disease, unspecified whether esophagitis present; Class 2 obesity with body mass index (BMI) of 37.0 to 37.9 in adult, unspecified obesity type, unspecified whether serious comorbidity present 08/10/2024 Travel 08/09/[address] [address] Janessa Merida, MAK 08/09/[address] [address] Rolanda Soria MA chart prep 08/07/2024 11:30 AM EST Office Visit [facility] [place] [address] Jessie Patel CNM Surveillance of previously prescribed contraceptive pill (Primary Dx) 08/07/2024 Travel 08/04/2024 Telephone [facility] [place] [address] Marianna Mcgovern, RN Care Management ([facility] TC #1-lvm) 07/21/2024 Orders Only [facility] [address] Alexander Whitaker ANP 07/18/2024 Telephone [facility] [place] [address] Stacey Leigh RN Results 07/11/2024 10:15 AM EST Office Visit [facility] [place] [address] Jessie Patel CNM Irregular menses (Primary Dx) 07/11/2024 Travel 07/06/2024 Telephone [facility] [place] [address] Alexander Whitaker ANP Nurse Triage 07/06/2024 Telephone [facility] [address] Marianna Mcgovern, RN Care Management ([facility] follow up call) 07/05/2024 Refill [facility] [place] [address] Alexander Whitaker, ANP Wheezing 06/16/2024 9:00 AM EST Office Visit [facility] [place] [address] Zulema Vaca MD DUB (dysfunctional uterine bleeding) (Primary Dx); High liver transaminase level; Adult ADHD; depression; Obesity (BMI 35.0-39.9 without comorbidity) 06/16/2024 Travel from Last 3 Months Immunizations Name Administration Dates Next Due DTaP 03/22/2007, 4,03/21/2002,02/03,2001 DTaP / IPV 03/22/2004,2001 HPV 9-Valent 09/24/2017,09/23/2015 HPV, Quadrivalent 09/24/2017,09/23/2015 Hep A, Unspecified 09/24/2017 Hep A, ped/adol, 2 dose 09/24/2017 Hep B, Adolescent or Pediatric 02/03/2002,2001,2001 HiB, unspecified 08/07/2002,03/21/2002, 2 Hib (PRP-T) 2001 IPV 09/23/2015,03/21/2002,02/03/2002 Influenza injectable quadriv alent preservative free 08/25/2021 Influenza, IIV3, injectable 08/25/2021 MMR 03/22/2007,08/28/2003 Meningococcal ACWY, unspecified 09/24/2017, Meningococcal MCV4P ACYW-135 09/24/2017,09/23/19 16 Pneumococcal Conjugate PCV 13 08/28/2004 ,05/16/2002,03/21/2002,10/24 Tdap 10/14/2023,,07/29/2018, Varicella 09/23/2015,08/28/2004 Family History Medical History Relation Name Comments Liver cancer Maternal Grandfather Lung cancer Maternal Grandfather Diabetes Maternal Grandmother Diabetes Paternal Grandmother Relation Name Status Comments Maternal Grandfather Maternal Grandmother Paternal Grandmother Social History Tobacco Use Types Packs/Day Years [...] Something else 05/25/2022 10 :29 AM EDT Last Filed Vital Signs Vital Sign Reading Time Taken Comments Blood Pressure 148/91 09/07/2024 9:01 AM EST Pulse 105 09/07/2024 9:01 AM EST Temperature 36.7 ??C (98 ??F) 09/07/2024 9:01 AM EST Respiratory Rate 17 09/07/2024 9:01 AM EST Oxygen Saturation 96% 08/22/2024 4:58 PM EST RA Inhaled Oxygen Concentration - - Weight 99.9 kg (220 lb 3.2 oz) 09/07/2024 9:01 A M EST Height 160 cm (5' 3 ) 09/07/2024 9:01 AM EST Body Mass Index 39.01 09/07/2024 9:01 AM EST Plan of Treatment Upcoming Encounters Date Type Department Care Team (Late st Contact Info) Description 10/10/2024 9:15 AM EDT Office Visit [facility] [address] [place] [address] Alexander Whitaker ANP [address] [place] [address] 10/13/2024 2:30 PM EDT Office Visit [facility] [address] [place] [address] Lashon Gallardo, OD [address] [place] [address] Health Maintenance Due Date Last Done Comments HIV Screening 2001 Hepatitis A Vaccines (2 of 2 - Risk 2-dose series) 03/27/2018 09/24/2017, 09/24/2017 Hepatitis C Screening 2019 COVID-19 Vaccine ( season) 2024 08/25/2021, 01/09/2021, 12/19/2020 Influenza Vaccine (#1) 2024 08/25/2021, 2021 Depression Monitoring (PHQ-9) 09/22/2024 03/23/2024, 03/23/2024 Depression Screening 03/23/2025 03/23/2024, 12/08/19 24 SDOH Screening 03/23/2025 03/23/2024 Chlamydia and Gonorrhea Screening 05/30/2025 05/30/2024, 05/02/2024 Family Planning (PISQ) 08/07/2025 08/07/2024 Alcohol/Substance Use Screening 08/10/2025 08/10/2024 Tobacco Screening 09/07/2025 09/07/2024 Pap Smear 09/09/2025 09/09/2022 Lipid Panel 06/12/2029 06/12/2024, 07/07/2023, 12/10/2021, Additional history exists DTaP/Tdap/Td Vaccines (10 - Td or Tdap) 10/13/2033 10/14/2023, 01/15/2023, 07/29/2018, Additional history exists Zoster Vaccines (1 of 2) 2051 RSV Patients and Patients Aged 60 years or older (1 - 1-dose 75+ series) 2076 Hepatitis B Vaccines Completed 02/03/2002, 2001, 2001 HIB Vaccines Completed 08/07/2002, 02/24, 02/03/2002, Additional history exists Pneumococcal Vaccine: Pediatrics (0 to 5 Years) and At-Risk Patients (6 to 49) Years) Completed 08/28/2004, 05/16/2002, 03/21/2002, Additional history exists IPV Vaccines Completed 09/23/2015, 02/24, 03/21/2002, Additional history exists HPV Vaccines Completed 09/24/2017, 08/2017, 09/23/2015, Additional history exists Meningococcal Vaccine Completed 09/24/2017 , 09/24/2017, 09/23/2015, Additional history exists RSV under 20 months Aged Out No longe r eligible based on patient's age to complete this topic Rotavirus Vaccines Aged Out No longer eligible based on patient's age to complete this topic Procedures Procedure Name Priority Date/Time Associated Diagnosis Comments POCT , URINE Routine 09/07/2024 9:19 AM EST Missed period XR KNEE 1-2 VIEWS LEFT Routine 08/12/2024 5:43 AM EST Acute pain of both knees XR KNEE 1-2 VIEWS RIGHT Routine 08/12/2024 5:41 AM EST Acute pain of both knees POCT , URINE Routine 07/11/2024 11:06 AM EST Irregular menses US ABDOMEN COMPLETE Routine 06/30/2024 8 :48 AM EST Transaminitis POCT HEMOGLOBIN Routine 06/16/2024 10:00 AM EST DUB (dysfunctional uterine bleeding) LIPID PANEL, STANDARD Routine 06/12/2024 9:40 AM EST Elevated cholesterol CHLAMYDIA/N. GONORRHOEAE RNA, TMA, UROGENITAL Routine 05/30/2024 3:36 PM EST PAP SMEAR Routine 09/09/2022 12:00 AM EST from Last 3 Months or Most Recently Relevant to Health Maintenance Results * POCT , urine manually resulted (09/07/2024 9:19 AM EST) Only the most recent of2 resultswithin the time period is included. Preg Test, Ur Negative Negative, Indeterminate, None Detected, Invalid, Specimen unsatisfactory for evaluation, Weakly Positive Urine 09/07/2024 9:19 AM EST us Merlyn Kyle MD POINT OF CARE TEST ENTER/EDIT OR DERABLES Final Result * XR Knee 1-2 Views Left (08/12/2024 5:43 AM EST) Anatomical Region Laterality Modality Lower Extremities, Knee Left Radiogra phic Imaging 08/12/2024 5:43 AM EST Narrative 08/12/2024 5:44 AM EST ? [facility] ?[address] ?[place] [address] ?XRay Report ? Signed ? Patient: Frazier,Breena ?MR#: [id number] ? : 2000 ?Acct:[id number] ? Age/Sex: 24 / F ?ADM Date: 08/10/24 ? Loc: HO.XRAY ? Attending Dr: Alexander Whitaker NP ? Ordering Physician: ALEXANDER WHITAKER NP ?? Date of Service: 08/10/24 ?? Procedure(s): XR knee LT 2V ?? Accession Number(s): [id number] ? cc: ALEXANDER WHITAKER NP ? CLINICAL HISTORY: atraumatic knee pain ? 2 view left knee ? Comparison: None ? Findings: ?? No fractures or dislocations. ?? No significant arthritic change or erosions. ?? No joint effusion. ?? No radiopaque foreign body. ? IMPRESSION: ?? 1. No acute findings. ? This document has been electronically signed by: Jana Wilson MD on ?? 08/12/2024 05:43:39 ? Dictated By: ?Jana Wilson MD ? Signed By: ?<Electronically signed by Jana Wilson MD in OV> ?08/12/24 0544 ? DD/ 0543 ? TD/TT: 08/12/24 0543 ? Industrial Sewer: ? Procedure Note Hill, Dominga - 08/12/2024 [place] [id number] [place] [address] XRay Report Signed Patient: Harjeet FrazierMR#: [id number] : 2000Acct:[id number] Age/Sex: 24 / FADM Date: 08/10/24 Loc: HO.KEILAAY Attending Dr: Alexander Whitaker NP Ordering Physician: ALEXANDER WHITAKER NP Date of Service: 08/10/24 Procedure(s): XR knee LT 2V Accession Number(s): [id number] cc: ALEXANDER WHITAKER NP CLINICAL HISTORY: atraumatic knee pain 2 view left knee Comparison: None Findings: No fractures or dislocations. No significant arthritic change or erosions. No joint effusion. No radiopaque foreign body. IMPRESSION: 1. No acute findings. This document has been electronically signed by: Jana Wilson MD on 08/12/2024 05:43:39 Dictated By: Jana Wilson MD Signed By: <Electronically signed by Jana Wilson MD in OV> 08/12/24 0544 DD/ 0543 TD/TT: 08/12/24 0543 Industrial Sewer: Alexander Whitaker ANP IMG XR PROCEDURES Final Result * XR Knee 1-2 Views Right (08/12/2024 5:41 AM EST) Anatomical Region Laterality Modality Lower Extremities, Knee Right Radiogra phic Imaging 08/12/2024 5:41 AM EST Narrative 08/12/2024 5:42 AM EST ? [facility] ?[address] ?[place] [address] ?XRay Report ? Signed ? Patient: Frazier,Breena ?MR#: [id number] ? : 2000 ?Acct:[id number] ? Age/Sex: 24 / F ?ADM Date: 01/16/25 ? Loc: HO.XRAY ? Attending Dr: Alexander Whitaker SYSTEMATIC THEOLOGY PROFESSOR ? Ordering Physician: ALEXANDER WHITAKER NP ?? Date of Service: 08/10/24 ?? Procedure(s): XR knee RT 2V ?? Accession Number(s): [id number] ? cc: ALEXANDER WHITAKER NP ? CLINICAL HISTORY: atraumatic knee pain ? 2 view right knee ? Comparison: None ? Findings: ?? Bones intact. No dislocations. ?? No significant loss of joint space, osteophytes, or erosions. ?? No joint effusion. ?? No radiopaque foreign body. ? IMPRESSION: ?? 1. No acute findings. ? This document has been electronically signed by: Jana Wilson MD on ?? 08/12/2024 05:41:13 ? Dictated By: ?Jana Wilson MD ? Signed By: ?<Electronically signed by Jana Wilson MD in OV> ?08/12/24 0542 ? DD/ 0 ? TD/TT: 08/12/245[address] ? Industrial Sewer: ? Procedure Note Durgater, Image - 08/12/[address] [address] XRay Report Signed Patient: Harjeet FrazierMR#: [id number] : 2000Acct:[id number] Age/Sex: 24 / FADM Date: 08/10/24 Loc: MANOJ Attending Dr: Alexander Whitaker NP Ordering Physician: ALEXANDER WHITAKER NP Date of Service: 08/10/24 Procedure(s): XR knee RT 2V Accession Number(s): [id number] cc: ALEXANDER WHITAKER NP CLINICAL HISTORY: atraumatic knee pain 2 view right knee Comparison: None Findings: Bones intact. No dislocations. No significant loss of joint space, osteophytes, or erosions. No joint effusion. No radiopaque foreign body. IMPRESSION: 1. No acute findings. This document has been electronically signed by: Jana Wilson MD on 08/12/2024 05:41:13 Dictated By: Jana Wilson MD Signed By: <Electronically signed by Jana Wilson MD in OV> 08/12/2442 DD/ 0 TD/TT: 08/12/24540 Industrial Sewer: us Alexander Whitaker ANP IMG XR PROCEDURES Final Result * US Abdomen Complete (06/30/2024 8:48 AM EST) Anatomical Region Laterality Modality Abdomen Ultrasound 06/30/2024 8:48 AM EST Narrative 07/16/2024 1:10 PM EST ? [facility] ?[address] ?[place] [address] ? Ultrasound Report ? Signed ? Patient: Frazier,Breena ?MR#: [id number] ? : 2000 ?Acct:[id number] ? Age/Sex: 23 / F ?ADM Date: 06/30/24 ? Loc: HO.US ? Attending Dr: Alexander Whitaker NP ? Ordering Physician: ALEXANDER WHITAKER NP ?? Date of Service: 06/30/24 ?? Procedure(s): US abdomen complete ?? Accession Number(s): [id number] ? cc: ALEXANDER WHITAKER NP ? EXAMINATION: ?? US ABDOMEN COMPLETE ? CLINICAL INFORMATION: ?? Transaminitis. ? COMPARISON: ?? None available. ? TECHNIQUE: ?? Real-time imaging of the abdominal viscera. ? FINDINGS: ? PANCREAS: Obscured by bowel gas not visualized. ? ABDOMINAL AORTA: The proximal, mid, and distal segments are normal in ?? caliber. ? INFERIOR VENA CAVA: Visualized portions are normal. ? LIVER: Enlarged measuring up to 22 cm The liver contour is normal. ?? Increased echogenicity of the liver parenchyma, this can be seen in the ?? setting of hepatic steatosis or liver parenchymal disease. No focal ?? hepatic lesion. There is no intrahepatic biliary duct dilatation seen. ? GALLBLADDER: The gallbladder is physiologically distended without ?? evidence of stones, sludge, wall thickening or pericholecystic fluid. ?? Echogenic structure adherent to the gallbladder wall likely small ?? polyps measuring up to 6 mm. ? COMMON BILE DUCT: Normal in caliber measuring 0.2 cm in diameter. ? RIGHT KIDNEY: No hydronephrosis. No renal calculi or focal parenchymal ?? lesions. The kidney measures 9.7 cm in maximum dimension. ? LEFT KIDNEY: No hydronephrosis. No renal calculi or focal parenchymal ?? lesions. The kidney measures 9.1 cm in maximum dimension. ? SPLEEN: Mildly enlarged The spleen measures 12.8 cm in maximum ?? dimension. ? FREE FLUID: None. ? US/US abdomen complete ?? IMPRESSION: ? 1. ??Hepatosplenomegaly. ? 2. ??Increased echogenicity of the liver parenchyma, this can be seen in ?? the setting of hepatic steatosis or liver parenchymal disease. ? 3. ??Echogenic structure adherent to the gallbladder wall likely ?? gallbladder polyps measuring up to 6 mm. Attention to follow-up ?? recommended. Consider follow-up ultrasound in 6 months. ? Electronically signed by: ??Viky Deleon MD ??07/16/2024 01:07 PM EST ? Dictated By: ?Viky Deleon MD ? Signed By: ?<Electronically signed by Viky Deleon MD in OV> ?07/16/24 1307 ? DD/ 0848 ? TD/TT: 06/30/24 0909 ? Industrial Sewer: HS ? Procedure Note Donotcarlyleinterpreter, Image - 07/16/2024 [place] [address] Ultrasound Report Signed Patient: Harjeet FrazierMR#: [id number] : 2000Acct:[id number] Age/Sex: Date: 06/30/24 Loc: HO.US Attending Dr: Alexander Whitaker NP Ordering Physician: ALEXANDER WHITAKER NP Date of Service: 06/30/24 Procedure(s): US abdomen complete Accession Number(s): [id number] cc: ALEXANDER WHITAKER NP EXAMINATION: US ABDOMEN COMPLETE CLINICAL INFORMATION: Transaminitis. COMPARISON: None available. TECHNIQUE: Real-time imaging of the abdominal viscera. FINDINGS: PANCREAS: Obscured by bowel gas not visualized. ABDOMINAL AORTA: The proximal, mid, and distal segments are normal in caliber. INFERIOR VENA CAVA: Visualized portions are normal. LIVER: Enlarged measuring up to 22 cm The liver contour is normal. Increased echogenicity of the liver parenchyma, this can be seen in the setting of hepatic steatosis or liver parenchymal disease. No focal hepatic lesion. There is no intrahepatic biliary duct dilatation seen. GALLBLADDER: The gallbladder is physiologically distended without evidence of stones, sludge, wall thickening or pericholecystic fluid. Echogenic structure adherent to the gallbladder wall likely small polyps measuring up to 6 mm. COMMON BILE DUCT: Normal in caliber measuring 0.2 cm in diameter. RIGHT KIDNEY: No hydronephrosis. No renal calculi or focal parenchymal lesions. The kidney measures 9.7 cm in maximum dimension. LEFT KIDNEY: No hydronephrosis. No renal calculi or focal parenchymal lesions. The kidney measures 9.1 cm in maximum dimension. SPLEEN: Mildly enlarged The spleen measures 12.8 cm in maximum dimension. FREE FLUID: None. US/US abdomen complete IMPRESSION: 1. Hepatosplenomegaly. 2. Increased echogenicity of the liver parenchyma, this can be seen in the setting of hepatic steatosis or liver parenchymal disease. 3. Echogenic structure adherent to the gallbladder wall likely gallbladder polyps measuring up to 6 mm. Attention to follow-up recommended. Consider follow-up ultrasound in 6 months. Electronically signed by: Viky Deleon MD 07/16/2024 01:07 PM EST Dictated By: Viky Deleon MD Signed By: <Electronically signed by Viky Deleon MD in OV> 07/16/24 1307 DD/ 0848 TD/TT: 06/30/24 0909 [employer]er: HS us Alexander FRAGA US PROCEDURES Edited Result - Final * (ABNORMAL) POCT Hemoglobin (06/16/2024 10:00 AM EST) Hemoglobin 11.6(A) 12.0 - 15.0 QC Media Lot # [id number] Lot# Expiration Date ,601,702 Blood 06/16/2024 10:0 0 AM EST Zulema Vaca MD POINT OF CARE TEST ENTER /EDIT ORDERABLES Final Result * (ABNORMAL) Lipid Panel, Standard (06/12/2024 9:40 AM EST) Triglycerides 98 <150 mg/dL [facility] Comment:Desirable Triglyceri de: less than 150 mg/dLBorderline High Triglyceride 150-199 mg/dLHigh Triglyceride: 200-499 mg/dLVery High Triglyceride: greater than or equal to 5OO mg/dL Cholesterol 155 <200 mg/dL [facility] Comment:Desirable Cholestero l: less than 200 mg/dLBorderline High Cholesterol: 200-239 mg/dLHigh Cholesterol: greater than 239 mg/dL LDL Cholesterol Calculated 105(H) <100 mg/dL [facility] Comment:Desirable LDL: less than 100 mg/dLNear Optimal/Above Optimal LDL: 110- 129 mg/dLBorderline High LDL: 130-159 mg/dLHigh LDL: 160-189 mg/dLVery High LDL: greater than or equal to 190 mg/dL HDL Cholesterol 31(L) >40 mg/dL [facility] Comment:Desirable HDL: great er than 40 mg/dL Note: This HDL assay may give artificially low results in patients with liver disease. Blood Venous blood specimen / Unknown 06/12/2024 9:40 AM EST 06/12/2024 11:32 AM EST Alexander Whitaker [facility] BLOOD ORDERABLES Final Resul t [facility] [address] [place] [phone] * Chlamydia/N. Gonorrhoeae RNA, TMA, Urogenitial (05/30/2024 3:36 PM EST) CT PCR NOT DETECTED Not Detect. [facility] Comment:A not detected test result does not exclude the possibilityof infection because test results can be affected byimproper specimen collection, concurrent antibiotic therapy,or the number of organisms in the specimen which may bebelow the sensitivity of the test. As with many diagnostictests, results from the Xpert CT/NG assay should beinterpreted in conjunction with other laboratory andclinical data available to the clinician.Xpert CT/NG performance has not been evaluated in patientsless than 14 years of age. The assay should not be used forthe evaluationof suspected sexual abuse or for other medico-legalindications. Additional testing is recommended in anycircumstance when false positive or false negative resultscould lead to adverse medical, social or psychologicalconsequences. NG PCR NOT DETECTED Not Detect. [facility] Comment:A not detected test result does not exclude the possibilityof infection because test results can be affected byimproper specimen collection, concurrent antibiotic therapy,or the number of organisms in the specimen which may bebelow the sensitivity of the test. As with many diagnostictests, results from the Xpert CT/NG assay should beinterpreted in conjunction with other laboratory andclinical data available to the clinician.Xpert CT/NG performance has not been evaluated in patientsless than 14 years of age. The assay should not be used forthe evaluationof suspected sexual abuse or for other medico-legalindications. Additional testing is recommended in anycircumstance when false positive or false negative resultscould lead to adverse medical, social or psychologicalconsequences. 05/30/2024 3:36 PM EST 05/30/2024 3:40 PM EST Narrative [facility] - 05/30/2024 5:19 PM EST Vaginal Generic External Data Provider LAB MICROBIOLOGY - GENERAL ORDERABLES Final Result Performing Organization Address [facility] de Phone Number [facility] [address] [place] [phone] * Pap Smear (09/09/2022 12:00 AM EST) Swab Stacey Garcia LAB CYTOLOGY ORDERABLES Final Re sult Performing Organization Address [facility] Co de Phone Number [facility] [address] [place] [phone] from Last 3 Months or Most Recently Relevant to Health Maintenance Insurance [facility] C3 Care Teams Corporate Counselor Relationship Specialty Start Date End Date Alexander Whitaker ANP [address] [place] [phone] PCP - General Family Medicine 02/01/23 Marianna Mcgovern Notch Machine Operator 02/03/24
[2024-09-14 12:19] LABS: Amphetamine Screen Urine Not Detected (Not Detect); Barbiturates, Urine Not Detected (Not Detect); Benzodiazepines Screen Urine Not Detected (Not Detect); Buprenorphine Scr Not Detected (Not Detect); Cannabinoid Screen Urine Not Detected (Not Detect); Cocaine Screen Urine Not Detected (Not Detect); Fentanyl, urine Not Detected (Not Detect); Methadone Screen, Urine Not Detected (Not Detect); Opiate Screen Urine Not Detected (Not Detect); Oxycodone Screen Urine Not Detected (Not Detect); Phencyclidine Screen Urine Not Detected (Not Detect)
[2024-09-14 12:29] LABS: TSH reflex Free T4 4.01 uIU/mL (0.32-4.0)
[2024-09-14 13:03] LABS: Free T4 (Free Thyroxine) 0.98 ng/dL (0.71-1.85)
[2024-09-15 18:23] LABS: Prolactin 7.5 ng/mL
== END 2024-09-14 09:10 | disposition home or self-care (01) ==
LOC: HO.HHCL 09:09
PROVIDERS: Registered Nurse; Visit Provider Advanced Practice Midwife
DX: N92.6 Irregular menstruation, unspecified (principal); R23.2 Flushing; F39 Unspecified mood [affective] disorder
CPT/HCPCS: 36415; 80307; 84146; 84439; 84443

== ENCOUNTER 2024-09-27 17:54 | Emergency (ER) | payer MEDICAID, SELFPAY ==
--- NOTE | ~2024-09-27 | XR_ITS ---
CLINICAL HISTORY: L shoulder pain 3 view left shoulder Comparison: None Findings: No fractures or dislocations. No significant loss of joint space or osteophytes. No erosions. No radiopaque foreign body. IMPRESSION: 1. No acute findings This document has been electronically signed by: Drake Calabrese MD on 09/27/2024 19:40:33
--- NOTE | ~2024-09-27 | XR_ITS ---
CLINICAL HISTORY: cp sob 2 view chest x-ray Comparison: CR/SR - CHEST 2 VIEWS - 08/22/19 15:46 EST Findings: No consolidation or effusion. Normal size heart. No acute fracture. IMPRESSION: 1. No acute findings. This document has been electronically signed by: Drake Calabrese MD on 09/27/2024 19:38:21
--- NOTE | 2024-09-27 17:58 | ECG_ITS ---
Test Reason : CHEST PAIN Blood Pressure : */* mmHG Vent. Rate : 104 BPM Atrial Rate : 104 BPM P-R Int : 146 ms QRS Dur : 82 ms QT Int : 332 ms P-R-T Axes : 25 44 12 degrees QTcB Int : 436 ms Sinus tachycardia Nonspecific T wave abnormality Abnormal ECG When compared with ECG of 22-Aug-2019 20:10, Nonspecific T wave abnormality now evident in Anterolateral leads Referred By: Vivian Vargas Electronically Signed By: RAZIA RAINES MD
--- NOTE | 2024-09-27 18:55 | ED_ITS ---
HPI - Chest Pain General Chief Complaint: General Medical Stated Complaint: left shoulder pain, CP, SOB Time Seen by Provider: 09/28/24 00:02 Source: patient Mode of arrival: ambulatory Limitations: no limitations History of Present Illness ED Provider: Dr. Nicole Posada HPI narrative: patient comes to the emergency room complaining of left shoulder pain. Patient denies any falls or injuries. patient states that she has trouble abducting her arm past 90 degrees. Patient states that when she moves her left arm, the pain radiates from her shoulder into her chest. At this time that she is not moving, patient denies any symptoms Related Data Previous Rx's ?Medication ?Instructions ?Recorded acetaminophen 325 mg capsule 650 mg (2 x 325 mg) PO Q6H PRN 04/03/23 (Tylenol) pain #30 caps vitamin with calcium 1 tab PO DAILY #90 tabs 09/15/23 no.72-iron 27 mg-folic acid 1 mg tablet ( Vitamins Plus Low Iron) desogestrel 0.15 mg-ethinyl 1 tab PO DAILY #28 tabs 05/28/24 estradiol 0.03 mg tablet (Apri) ferrous sulfate 325 mg (65 mg 325 mg PO DAILY #30 tabs 05/28/24 iron) tablet ibuprofen 600 mg tablet 600 mg PO Q6H PRN fever or pain 05/28/24 #30 tabs fluconazole 150 mg tablet 150 mg PO Q3D 2 doses #2 tabs 06/01/24 Allergies Allergy/AdvReac Type Severity Reaction Status Date / Time pineapple [PINEAPPLE] Allergy Intermediate HIVES Verified 09/27/24 19:06 Review of Systems 2 Review of Systems: Constitutional : No Weight loss, No Fever, No Chills, No Night Sweats, No Fatigue, No Malaise ENT/Mouth : No Hearing loss, No Ear Pain, No Nasal Congestion, No Sinus Pain, No Hoarseness, No sore throat, No Rhinorrhea, No Swallowing Difficulty Eyes: No Eye Pain, No Swelling, No Redness, No Foreign Body, No Discharge, No Vision Changes Cardiovascular : No Chest Pain, No SOB, No Dyspnea on Exertion, No Orthopnea, No Edema, No Palpitations Respiratory : No Cough, No Sputum, No Wheezing, No Smoke Exposure, No Dyspnea Gastrointestinal : No Nausea, No Vomiting, No Diarrhea, No Constipation, No abdominal Pain, No Hematochezia, No Melena Genitourinary : no irregular bleeding, No Dysuria, No Urinary Frequency, No Hematuria, No Urinary Incontinence, No Urgency, No Flank Pain, No Urinary Flow Changes, No Hesitancy Musculoskeletal : complaining of left shoulder pain radiating towards the left side of the chest, No Myalgias, No Joint Swelling Skin : No Skin Lesions, No rash Neuro : No Weakness, No Numbness, No Paresthesias, No Loss of Consciousness, No Dizziness, No Headache Psych : No Anxiety/Panic, No Depression, No SI/HI/AH/VH, No Social Issues, Heme/Lymph: No Bruising, No Bleeding,No Lymphadenopathy Endocrine : No Polyuria, No Polydipsia, No Temperature Intolerance [facility] Past Medical History Medical History Late care affecting in third trimester H/O oligohydramnios in prior , currently Surgical History King teeth removed Family History Family History Mother Ovarian cancer Maternal Grandmother Colon cancer Social History Social History Household Members: Family Housing: House Are you a primary home care associate to a significant other at home: No Do you presently have visiting nurse or other home services: No Alcohol intake: former Patient Tobacco Use Status: Former Tobacco user Special zoë needs: No Agree to transfusion: Yes Advance Directives: No Advance Directives Information Provided: No Do you have a plan to hurt others: No Plan Physical Exam 2 Vital Signs: Vital Signs: Last Vital Signs Temp 98.6 F 09/27/24 22:17 Pulse 96 09/27/24 22:17 Resp 16 09/27/24 22:17 BP 135/81 09/27/24 22:17 Pulse Ox 96 09/27/24 22:17 O2 Del Method Room Air 09/27/24 22:17 BMI result Body Mass Index 37.5 Const: Other: Appearance: Alert. Oriented X3. No acute distress. Eyes: Pupils equal, round and reactive to light. ENT: Pharynx normal. Neck: Normal inspection. Neck supple. No lymph nodes noted. No crepitus CVS: Normal heart rate and rhythm. Pulses normal. Normal S1 and S2. Reproducible chest pain to palpation Respiratory: No respiratory distress. Breath sounds normal. No Wheezing. No rales Abdomen: Soft and nontender. No rigidity. No distention. Skin: Skin warm and dry. Normal skin color. Normal skin turgor. Extremities: No lower extremity edema. No Lacerations. No Rash. I asked the patient to take her sweatshirt off, patient was able to completely abduct both extremities to 180 degrees Neuro: Oriented X 3. No motor deficit. No sensory deficit. Moving all extremities. No slurred speech. CN 2 through 12 grossly intact Psych: calm, cooperative, normal affect Course Course Course Narrative: This is a Rapid Medical Exam performed in triage by Vivian Vargas PA-C. Full HPI, ROS and PE to be performed by primary ED provider. 24-year-old female presenting to the ED c/o L shoulder pain radiating to chest x few days, today developed w/assoc numbness & tingling. alyssa worse w/movement. denies injury/fall. +SOB PE: nontoxic appearing, NAD, talking in complete sentences, shoulder pain not reproducible. Pain produced with shoulder ROM. Neurovascularly intact distally. No deformity/erythema or warmth. Plan: EKG, SARs, CXR, labs Medical Decision Making Medical Decision Making [facility] Narrative: my interpretation of chest x-ray: Sinus tachycardia, heart rate 104, no ST segment depression or elevation, no T-wave inversion, QTC 436 my interpretation of labs: Normal hematology, normal chemistry and troponin chest x-ray within normal limit shoulder x-ray within normal limits patient was able to completely abduct both upper extremities with normal range of motion. Patient states that sometimes she feels numbness tingling in her fingers when she abducts her arm completely especially on the left side. I discussed with the patient that her lab work and x-rays of normal. Patient may be experiencing some radiculopathy. If her symptoms do not improve, patient may need more imaging saturation MRI to rule old cervical spine stenosis versus bulging discs causing the radiculopathy patient agrees with plan. Differential Diagnosis Differential Diagnoses: The differential diagnosis associated with the presentation includes ( Calcific tendinitis, bursitis, radiculopathy, musculoskeletal pain) Lab Data MDM Lab Attestation statement: I reviewed the patient's lab results. 09/27/24 19:13 09/27/24 19:12 Labs: Lab Results 09/27/24 09/27/24 Range/Units 19:12 19:13 WBC 10.8 (4.8-10.8) X10*3/uL RBC 4.53 (4.20-5.50) X10*6/uL Hgb 12.7 (12.0-16.0) g/dl Hct 37.4 (37.0-47.0) % MCV 82.6 (80.0-98.0) fL MCH 28.0 (27.0-33.0) pg MCHC 34.0 (31.0-35.0) g/dl RDW 12.8 (11.0-16.0) % Plt Count 282 (160-400) X10*3/uL MPV 11.5 (9.4-12.3) fL Immature Gran % (Auto) 0.3 (0.0-0.4) % Neut % (Auto) 55.2 (45-73) % Lymph % (Auto) 35.3 (20-40) % [place] % (Auto) 6.8 (2-11) % Eos % (Auto) 1.9 (0-4) % Baso % (Auto) 0.5 (0-2) % Lymph # (Auto) 3.8 (1.2-4.9) X10*3/uL [place] # (Auto) 0.7 (0.1-1.2) X10*3/uL Eos # (Auto) 0.2 (0.0-0.4) X10*3/uL Baso # (Auto) 0.1 (0.0-0.2) X10*3/uL Abs Immat Gran (auto) 0.03 (0.00-0.03) X10*3/uL Absolute Neuts (auto) 6.0 (2.0-8.3) x10*3/uL Absolute Nucleated RBC 0.000 (0.0-0.012) X10*3/uL Nucleated RBC % (auto) 0.0 (0.0-0.2) /100WBC PT 10.6 L (10.9-12.4) SEC INR 0.9 (0.9-1.1) Sodium 141 (135-145) mmol/L Potassium 3.7 D (3.3-5.1) mmol/L Chloride 111 H (96-108) mmol/L Carbon Dioxide 23 (22-29) mmol/L Anion Gap 11 L (12-20) BUN 11 (9-16) mg/dL Creatinine 0.65 (0.5-1.4) mg/dL Estim Creat Clear Calc 153.9 Estimated GFR > 60 Random Glucose 90 (60-115) mg/dL Calcium 9.2 (8.4-10.2) mg/dL Magnesium 2.0 (1.6-2.6) mg/dL Total Bilirubin 0.2 (0.0-1.0) mg/dL Direct Bilirubin < 0.2 (0.0-0.5) mg/dL AST 32 H (5-31) U/L ALT 50 H (0-31) U/L Alkaline Phosphatase 104 (39-117) U/L Troponin I High Sens < 2.7 (<3.5-17.0) ng/L Total Protein 7.9 (6.5-8.0) g/dL Albumin 4.1 (3.5-5.0) g/dL Influenza Type A (PCR) NEGATIVE (Negative) Influenza Type B (PCR) NEGATIVE (Negative) RSV RNA Qual (PCR) NEGATIVE (Negative) SARS-CoV-2 RNA (RT-PCR) NEGATIVE (Negative) Independent Interpretation I performed an independent interpretation of an: EKG and Plain X-Ray Radiology Impression Discussion of test interpretation with radiology: I have reviewed the radiologist's reading. Radiologist Impression: No fractures or dislocations. No significant loss of joint space or osteophytes. No erosions. No radiopaque foreign body. IMPRESSION: 1. No acute findings No consolidation or effusion. Normal size heart. No acute fracture. Discharge Plan Discharge Clinical Impression: Cervical radiculopathy, Musculoskeletal chest pain Patient Disposition: Home, Self-Care Instructions: Cervical Radiculopathy (ED), Chest Wall Pain (ED) Additional Instructions: Please follow-up with your primary care physician tomorrow. If you have any worsening or new symptoms, please return to the emergency room or call 911 Prescriptions: No Action acetaminophen [Tylenol] 325 mg capsule 650 mg PO Q6H PRN (Reason: pain) Qty: 30 0RF ibuprofen 600 mg tablet 600 mg PO Q6H PRN (Reason: fever or pain) Qty: 30 0RF desogestrel-ethinyl estradiol [Apri] 0.15-0.03 mg tablet 1 tab PO DAILY Qty: 28 0RF ferrous sulfate 325 mg (65 mg iron) tablet 325 mg PO DAILY Qty: 30 0RF fluconazole 150 mg tablet 150 mg PO Q3D Qty: 2 0RF Rx Instructions: may repeat second dose 72 hrs after first dose if symptoms persist Vitamin Plus Low Iron 27 mg iron- 1 mg tablet 1 tab PO DAILY Qty: 90 4RF Print Language: Citizen Of [place]
[2024-09-27 19:03] VITALS: BP 130/90; PULSE 92; RESP 16; TEMP 36.3; O2SAT 99; BMI 37.5
[2024-09-27 19:17] LABS: MANUAL DIFF FLAG NO
[2024-09-27 19:23] LABS: Basophils Absolute Auto 0.1 X10*3/uL (0.0-0.2); Basophils Percent Auto 0.5 % (0-2); Eosinophils Absolute Auto 0.2 X10*3/uL (0.0-0.4); Eosinophils Percent Auto 1.9 % (0-4); Hematocrit 37.4 % (37.0-47.0); Hemoglobin 12.7 g/dl (12.0-16.0); Imm Gran Abs Auto 0.03 X10*3/uL (0.00-0.03); Imm Gran Pct Auto 0.3 % (0.0-0.4); Lymphocytes Absolute Auto 3.8 X10*3/uL (1.2-4.9); Lymphocytes Percent Auto 35.3 % (20-40); Mean Corpuscular Volume 82.6 fL (80.0-98.0); Mean Platelet Volume 11.5 fL (9.4-12.3); Monocytes Absolute Auto 0.7 X10*3/uL (0.1-1.2); Monocytes Percent Auto 6.8 % (2-11); Neutrophils Percent Auto 55.2 % (45-73); Platelet Count 282 X10*3/uL (160-400); Red Blood Count 4.53 X10*6/uL (4.20-5.50); Red Cell Distribution Width 12.8 % (11.0-16.0); White Blood Count 10.8 X10*3/uL (4.8-10.8)
[2024-09-27 19:30] LABS: INTERNATIONAL NORM RATIO 0.9 (0.9-1.1); Prothrombin Time 10.6 SEC (10.9-12.4)
[2024-09-27 19:41] LABS: Alanine Aminotransferase 50 U/L (0-31); Albumin Level 4.1 g/dL (3.5-5.0); Anion Gap 11 (12-20); Aspartate Amino Transferase 32 U/L (5-31); Bilirubin Direct < 0.2 mg/dL (0.0-0.5); Bilirubin Total 0.2 mg/dL (0.0-1.0); Blood Urea Nitrogen 11 mg/dL (9-16); Calcium 9.2 mg/dL (8.4-10.2); Carbon Dioxide 23 mmol/L (22-29); Chloride 111 mmol/L (96-108); Creatinine Clr Calc Pharmacy 153.9; Estimated Glomerular Filt Rate > 60; Glucose Random 90 mg/dL (60-115); Potassium 3.7 mmol/L (3.3-5.1); Sodium 141 mmol/L (135-145); Total Protein 7.9 g/dL (6.5-8.0)
[2024-09-27 19:43] LABS: Troponin-I High Sensitivity < 2.7 ng/L (<3.5-17.0)
[2024-09-27 19:56] LABS: Influenza A PCR NEGATIVE (Negative); Influenza B PCR NEGATIVE (Negative); Resp Syncy Virus RNA Qual PCR NEGATIVE (Negative); SARS COV2 PCR INHOUSE NEGATIVE (Negative)
[2024-09-27 20:04] LABS: Alkaline Phosphatase 104 U/L (39-117)
[2024-09-27 22:17] VITALS: BP 135/81; PULSE 96; RESP 16; TEMP 37; O2SAT 96
--- OUTSIDE RECORDS SUMMARY | 2024-09-27 22:24 | XMS_ITS | Encounter Summary ---
Author Organization [employer] Address [address] [facility] [address] [place] [address] Care Team Providers Care Steam Plant Control Room Operator Name Role Phone Amy Mejia Primary Care Provider [phone] Encounter Details Date Type Department Care Team ([facility] st Contact Info) Description 09/18/2024 Orders Only [facility] MEDICINE [address], [place] [phone] Jessie Patel CNM [address], [place] [phone] Elevated TSH (Primary Dx) Social History Tobacco Use Types [...] 10/10/2024 9:15 AM EDT Office Visit [facility] MEDICINE [address] [place] [phone] Amy Mejia ANP [address] [place] [address] 10/13/2024 2:30 PM EDT Office Visit [facility] OPTOMETRY [address] [place] [address] Sami, Lashon, OD [address] [place] [address] Scheduled Orders Name Type Priority Associated Diagnoses Orde r Schedule TSH W/Reflex to FT4 Lab Routine Elevated TSH Expected: 09/18/2024 (Approximate), Expires: 09/18/2025 documented as of this encounter Visit Diagnoses Diagnosis Elevated TSH- Primary Other abnormal blood chemistry documented in this encounter Additional Health Concerns Assessment Noted Time PHQ-9 Depression Total Score: 18 024 2:56 PM EDT documented as of this encounter Care Teams Steam Plant Control Room Operator Relationship Specialty Start Date End Date Amy Mejia ANP [address] [place] [phone] PCP - General Family Medicine 02/01/23 Marianna Mcgovern Extract Puller 02/03/24 documented as of this encounter
--- OUTSIDE RECORDS SUMMARY | 2024-09-27 22:24 | XMS_ITS | Encounter Summary ---
Author Organization [employer] Address [address] [facility] [address] [place] [address] Care Team Providers Care Brim Blocker Name Role Phone Amy Mejia Primary Care Provider [phone] Reason for Visit * Reason Onset Date Comments Results 05/04/2024 Encounter Details Date Type Department Care Team ([facility] st Contact Info) Description 05/04/2024 Telephone [facility] MEDICINE [address] [place] [address] Amy Mejia ANP [address] [place] [address] Results Social History Tobacco Use Types Packs/Day [...] with others, in a hotel, in a skilled nursing, living outside on the street, on a [...] removal, does not want to go to [place], and states she wants to try a [...] will need to be removed with a flumer. Would you like to have appointment here or would you like me to send you back to [facility]? I got a message from the [...] Description 10/10/2024 9:15 AM EDT Office Visit [facility] MEDICINE [address] [place] [address] Amy Mejia ANP [address] [place] [address] 10/13/2024 2:30 PM EDT Office Visit [facility] OPTOMETRY [address] [place] [address] Lashon Gallardo, JAIME [address] [place] [address] documented as of this encounter Visit Diagnoses Not on filedocumented in this encounter Additional Health Concerns Assessment Noted Time PHQ-9 Depression Total Score: 18 03/23/ 024 2:56 PM EDT documented as of this encounter Care Teams Brim Blocker Relationship Specialty Start Date End Date Amy Mejia ANP [address] [place] [address] PCP - General Family Medicine 02/01/23 Marianna Mcgovern Free Lance Artist 02/03/24 documented as of this encounter
--- OUTSIDE RECORDS SUMMARY | 2024-09-27 22:24 | XMS_ITS | Encounter Summary ---
Author Organization [employer] Address [address] [facility] 7t [place] [address] Care Team Providers Care Thread Singer Name Role Phone Alexander Whitaker Primary Care Provider [phone] Encounter Details Date Type Department Care Team ([facility] st Contact Info) Description 08/10/2024 11:00 AM EST Office Visit [facility] MEDICINE [address] [place] [address] Alexander Whitaker ANP [address] [place] [address] Gallbladder polyp (Primary Dx); Transaminitis; Acute pain of both knees; Gastroesophageal reflux disease, unspecified whether esophagitis present; Class 2 obesity with body mass index (BMI) of 37.0 to 37.9 in adult, unspecified obesity type, unspecified whether serious comorbidity present Social History Tobacco Use Types Packs/Day Years [...] with others, in a hotel, in a mcfp, living outside on the street, on a [...] the past 12 months, has t he [employer], gas, oil or water [employer] threatened to shut off services in your [...] Sign Reading Time Taken Comments Blood Pressure 137/91 08/10/2024 11:04 AM EST Pulse 112 08/10/2024 11:04 AM EST Temperature 36.3 ??C (97.3 ??F) 08/10/2024 11:[address] Respiratory Rate 16 08/10/2024 11:04 AM EST Oxygen Saturation 98% 08/10/2024 11:04 AM EST Inhaled Oxygen Concentration - - Weight 96.6 kg (213 lb) 08/10/2024 11:04 AM EST Height 160 cm (5' 3 ) 08/10/2024 11:04 AM EST Body Mass Index 37.73 08/10/2024 11:04 AM EST documented in this encounter Progress Notes * JOSE Tabares - 08/10/2024 11:00 AM EST Subjective Patient ID: Stephanie Frazier is a 24 y.o. female who presents for No chief complaint on file.. HPI Recent abd US: US/US abdomen complete IMPRESSION: 1. Hepatosplenomegaly. 2. Increased echogenicity of the liver parenchyma, this can be seen in the setting of hepatic steatosis or liver parenchymal disease. 3. Echogenic structure adherent to the gallbladder wall likely gallbladder polyps measuring up to 6 mm. Attention to follow-up recommended. Consider follow-up ultrasound in 6 months. Having a lot of knee pain. Feels like she has hypermobility in joints. Has bilateral hip pain and knee pain, even if not doinganything. Pain in knees will wake her up. Doing exercise. Decreased calorie diet, still has not lost weight. Has been trying to lose weight for > 3 mos without effect. Lab Results Component Value Date CHOLESTEROL 195 12/10/2021 HDLCHOL 39 (L) 12/10/2021 LDLCHOL 135 (H) 12/10/2021 TRIG 98 06/12/2024 Lab Results Component Value Date CHOL 155 06/12/2024 HDL 31 (L) 06/12/2024 LDLCHOLCAL 105 (H) 06/12/2024 TRIG 98 06/12/2024 Lab Results Component Value Date ALT 67 (H) 06/12/2024 ALT 68 (H) 05/30/2024 ALT 75 (H) 02/03/2024 AST 46 (H) 06/12/2024 AST 61 (H) 05/30/2024 AST 41 (H) 02/03/2024 Review of Systems Constitutional: Negative for chills and fever. HENT: Negative for sore throat. Respiratory: Negative for cough and shortness of breath. Cardiovascular: Negative for chest pain. Gastrointestinal: Negative for abdominal pain, constipation and diarrhea. Endocrine: Negative for polydipsia, polyphagia and polyuria. Genitourinary: Negative for dysuria. Musculoskeletal: Positive for arthralgias. Objective BP (!) 137/91 (BP Location: Right arm, Patient Position: Sitting, BP Cuff Size: Large adult) Pulse (!) 112 Temp 97.3 ??F (36.3 ??C) (Temporal) Resp 16 Ht 5' 3 (1.6 m) Wt 213 lb (96.6 kg) LMP 07/30/2024 (Exact Date) SpO2 98% BMI 37.73 kg/m?? Physical Exam Vitals reviewed. Constitutional: General: She is not in acute distress. Appearance: Normal appearance. She is obese. She is not ill-appearing. HENT: Head: Normocephalic and atraumatic. Eyes: General: No scleral icterus. Extraocular Movements: Extraocular movements intact. Pupils: Pupils are equal, round, and reactive to light. Cardiovascular: Rate and Rhythm: Normal rate. Pulmonary: Effort: Pulmonary effort is normal. No accessory muscle usage or respiratory distress. Neurological: Mental Status: She is alert and oriented to person, place, and time. Psychiatric: Mood and Affect: Mood normal. Behavior: Behavior normal. Assessment/Plan Diagnoses and all orders for this visit: Gallbladder polyp Recheck US in 6 mos Transaminitis Would benefit from additional wt loss Does not drink etoh, recommend high fiber diet. Acute pain of both knees Consider polyarthralgia work up or rheum eval - XR Knee 1-2 Views Left; Future - XR Knee 1-2 Views Right; Future - ibuprofen 600 MG tablet; Take 1 tablet (600 mg) by mouth every 8 (eight) hours if needed for moderate pain or fever. Gastroesophageal reflux disease, unspecified whether esophagitis present - pantoprazole (Protonix) 40 MG EC tablet; Take 1 daily in AM and 1 in PM if needed; Do not crush, chew, or split. Class 2 obesity with body mass index (BMI) of 37.0 to 37.9 in adult, unspecified obesity type, unspecified whether serious comorbidity present Reviewed w/ pt side effects of GLP1 and how to mitigate incl eating small portions and do not eat through sensation of fullness. No personal or family h/o papillary thyroid cancer. No personal h/o pancreatitis. Does not have known retinopathy. Refrigerate but do not freeze. Recommend: Daily exercise at least 30min, moderate intensity, incorporating both cardiovascular exercise and weight training. Adequate protein intake, Recommended at least 20 g per meal of protein to assist with satiety. Decrease soda and sugary beverage consumption. Weight loss medications must be used as part of a comprehensive lifestyle plan that incorporates the recommendations above. Pt has tried to lose weight for at least 6 mos via improved nutrition/reduced caloric intake and increased physical activity and has not lost weight. Baseline weight: -given BMI >30kg/m2 or >27kg/m2 with one or more weight related comorbidities pt is a candidate for glucagon-like peptide-1s (GLP-1) to assist with weight loss -pt has attempted > 3 months of dietary changes and increased physical activity without significant reduction in weight -patient counseled this medication is to be used in combination with reduced calorie diet and increased physical activity 09/19/24 Addendum -Contraindication to phentermine: history of agitated states Patient has mood disorder and ADHD, uncontrolled anxiety documented in this encounter Plan of Treatment Upcoming Encounters Date Type Department Care Team (Late st Contact Info) Description 10/10/2024 9:15 AM EDT Office Visit [facility] MEDICINE [address] [place] [address] Alexander Whitaker ANP [address] [place] [address] 10/13/2024 2:30 PM EDT Office Visit [facility] OPTOMETRY [address] [place] [address] Sami, Lashon, OD [address] [place] [address] documented as of this encounter Procedures Procedure Name Priority Date/Time Associated Diagnosis Comments XR KNEE 1-2 VIEWS LEFT Routine 08/12/2024 5:43 AM EST Acute pain of both knees XR KNEE 1-2 VIEWS RIGHT Routine 08/12/2024 5:41 AM EST Acute pain of both knees documented in this encounter Results * XR Knee 1-2 Views Left (08/12/2024 5:43 AM EST) Anatomical Region Laterality Modality Lower Extremities, Knee Left [facility] 08/12/2024 5:43 AM EST Narrative 08/12/2024 5:44 AM EST ? [facility] ?[address] ?[place] [address] ?XRay Report ? Signed ? Patient: Frazier,Breena ?MR#: [id number] ? : 2000 ?Acct:[id number] ? Age/Sex: 24 / F ?ADM Date: 01/16/25 ? Loc: HO.XRAY ? Attending Dr: Alexander Whitaker NP ? Ordering Physician: ALEXANDER WHITAKER NP ?? Date of Service: 08/10/24 ?? Procedure(s): XR knee LT 2V ?? Accession Number(s): [id number] ? cc: ALEXANDER WHITAKER NP ? CLINICAL [...] MD in OV> ?08/12/24 0544 ? DD/ 2 ? TD/TT: 08/12/24542 ? Manager New Product: ? Procedure Note Hill, Image - 08/12/[address] [address] XRay Report Signed Patient: Harjeet FrazierMR#: [id number] : 2000Acct:[id number] Age/Sex: 24 / FADM Date: 08/10/24 Loc: VIJAYJuliaFAIZAN Attending Dr: Alexander Whitaker NP Ordering Physician: ALEXANDER WHITAKER NP Date of Service: 08/10/24 Procedure(s): XR knee LT 2V Accession Number(s): [id number] cc: ALEXANDER WHITAKER NP CLINICAL HISTORY: atraumatic [...] Wilson MD in OV> 08/12/24 0544 DD/ 2 TD/TT: 08/12/24542 Manager New Product: us Alexander GARCIA IMG XR PROCEDURES Final Result * XR Knee 1-2 Views Right (08/12/2024 5:41 AM EST) Anatomical Region Laterality Modality Lower Extremities, Knee Right Radiogra phic Imaging 08/12/2024 5:41 AM EST Narrative 08/12/2024 5:42 AM EST ? [facility] ?[address] ?[place] [address] ?XRay Report ? Signed ? Patient: Frazier,Breena ?MR#: [id number] ? : 2000 ?Acct:[id number] ? Age/Sex: 24 / F ?ADM Date: 08/10/24 ? Loc: HO.XRAY ? Attending Dr: Alexander Whitaker NP ? Ordering Physician: ALEXANDER WHITAKER NP ?? Date of Service: 08/10/24 ?? Procedure(s): XR knee RT 2V ?? Accession Number(s): [id number] ? cc: ALEXANDER WHITAKER NP ? CLINICAL [...] MD in OV> ?08/12/24 0542 ? DD/ 0541 ? TD/TT: 08/12/24 0541 ? Manager New Product: ? Procedure Note Hill, Image - 08/12/[address] [address] KEILAay Report Signed Patient: Harjeet FrazierMR#: [id number] : 2000Acct:[id number] Age/Sex: 24 / FADM Date: 08/10/24 Loc: MANOJ Attending Dr: Alexander Whitaker NP Ordering Physician: ALEXANDER WHITAKER NP Date of Service: 08/10/24 Procedure(s): XR knee RT 2V Accession Number(s): [id number] cc: ALEXANDER WHITAKER GUN PERFORATOR LOADER CLINICAL HISTORY: atraumatic knee pain 2 view [...] by Jana Wilson MD in OV> 08/12/24 0542 DD/ 0541 TD/TT: 08/12/24 0541 Manager New Product: Alexander GARCIA IMG XR PROCEDURES Final Result documented in this encounter Visit Diagnoses Diagnosis Gallbladder polyp- Primary Cholesterolosis of gallbladder Transaminitis Nonspecific elevation of levels of transaminase or lactic acid dehydrogenase (LDH) Acute pain of both knees Gastroesophageal reflux disease, unspecified whether esophagitis present Class 2 obesity with body mass index (BMI) of 37.0 to 37.9 in adult, unspecified obesity type, unspecified whether serious comorbidity present documented in this encounter Additional Health Concerns Assessment Noted Time PHQ-9 Depression Total Score: 18 024 2:56 PM EDT documented as of this encounter Care Teams Thread Singer Relationship Specialty Start Date End Date Alexander Whitaker ANP [address] [place] [phone] PCP - General Family Medicine 02/01/23 Marianna Mcgovern Finishing Area Operator 02/03/24 documented as of this encounter
--- OUTSIDE RECORDS SUMMARY | 2024-09-27 22:24 | XMS_ITS | Encounter Summary ---
Author Organization [employer] Address [address] [facility] 7t [place] [address] Care Team Providers Care Work Manager Name Role Phone Amy Mejia Primary Care Provider [phone] Reason for Visit * Reason Comments Care Management [facility] TC #[id number] Encounter Details Date Type Department Care Team ([facility] st Contact Info) Description 09/04/2024 Telephone [facility] MEDICINE [address] [place] [address] Marianna Mcgovern, MAK Care Management ([facility] TC #[id number]-lvm) Social History Tobacco Use Types [...] with others, in a hotel, in a chcf, living outside on the street, on a [...] Description 10/10/2024 9:15 AM EDT Office Visit [facility] MEDICINE [address] [place] [address] Amy Mejia, ANP [address] [place] [address] 10/13/2024 2:30 PM EDT Office Visit [facility] OPTOMETRY [address] [place] [address] Lashon Gallardo, OD [address] [place] [address] documented as of this encounter Visit Diagnoses Not on filedocumented in this encounter Additional Health Concerns Assessment Noted Time PHQ-9 Depression Total Score: 18 024 2:56 PM EDT documented as of this encounter Care Teams Work Manager Relationship Specialty Start Date End Date Amy Mejia ANP [address] [place] [address] PCP - General Family Medicine 02/01/23 Marianna Mcgovern Material Control Supervisor 02/03/24 documented as of this encounter
--- OUTSIDE RECORDS SUMMARY | 2024-09-27 22:24 | XMS_ITS | Encounter Summary ---
Author Organization [employer] Address [address] [facility] 7t [place] [address] Care Team Providers Care Liquor Department Manager Name Role Phone Amy Mejia Primary Care Provider [phone] Encounter Details Date Type Department Care Team ([facility] st Contact Info) Description 09/07/2024 Orders Only [facility] MEDICINE [address] [place], [place] [phone] Jessie Patel CNM [address] [place], [place] [phone] Missed period (Primary Dx); Hot flashes Social [...] Description 10/10/2024 9:15 AM EDT Office Visit [facility] MEDICINE [address] [place] [address] Amy Mejia, JOSE [address] [place] [address] 10/13/2024 2:30 PM EDT Office Visit [facility] OPTOMETRY [address] [place] [address] Lashon Gallardo, OD [address] [place] [address] documented as of this encounter Procedures Procedure Name Priority Date/Time Associated Diagnosis Comments TSH W/REFLEX TO FT4 Routine 09/14/2024 9 :13 AM EST Missed period Hot flashes PROLACTIN Routine 09/14/2024 8:13 AM EST Missed period Hot flashes documented in this encounter Results * (ABNORMAL) TSH W/Reflex to FT4 (09/14/2024 9:13 AM EST) TSH reflex Free T4 4.01(H) 0.32 - 4.0 uIU/mL [facility] Blood Venous blood specimen / Unknown 09/14/2024 9:13 AM EST 09/14/2024 11:36 AM EST Jessie Mejiadonal [facility] LAB BLOOD ORDERABLES Greer l Result Performing Organization Address [facility] Co de Phone Number [facility] [address] [place] [phone] * Prolactin (09/14/2024 8:13 AM EST) Pathologist [facility] Prolactin 7.5 ng/mL [facility] Comment:Reference Range Fema les Non- 3.0-30.0 10.0-209.0 Postmenopausal 2.0-20.0THIS TEST WAS PERFORMED AT:[employer] [place] [phone] LI MD Blood Venous blood specimen / Unknown 09/14/2024 8:13 AM EST 09/14/2024 11:36 AM EST [facility] Greer l Result Performing Organization Address [facility] Number [facility] [address] [place] [phone] documented in this encounter Visit Diagnoses Diagnosis Missed period- Primary Hot flashes documented in this encounter Additional Health Concerns Assessment Noted Time PHQ-9 Depression Total Score: 18 024 2:56 PM EDT documented as of this encounter Care Teams Liquor Department Manager Relationship Specialty Start Date End Date Amy Mejia ANP [address] [place] [address] PCP - General Family Medicine 02/01/23 Marianna Mcgovern Project Intern 02/03/24 documented as of this encounter
--- OUTSIDE RECORDS SUMMARY | 2024-09-27 22:24 | XMS_ITS | Encounter Summary ---
Author Organization [employer] Address [address] [facility] 7t [place] [address] Care Team Providers Care Hospital Nursing Assistant Name Role Phone Amy Mejia Primary Care Provider [phone] Reason for Visit * Reason Onset Date Comments Nurse Triage 09/27/2024 Encounter Details Date Type Department Care Team ([facility] st Contact Info) Description 09/27/2024 Telephone [facility] MEDICINE [address] [place] [address] Amy Mejia ANP [address] [place] [address] Nurse Triage Social History Tobacco Use Types [...] with others, in a hotel, in a residential, living outside on the street, on a [...] encounter Miscellaneous Notes * Telephone Encounter - Yuliet Muse RN - 09/27/2024 5:01 PM EST Images from the original note were not included. Call returned to Stephanie Frazier to triage below. Left shoulder pain and arm numbness x 1 week. Per pt no injury or fall to cause sx. Pt has been using cold/heat compress, OTC Ibuprofen. Pt has pain worse with ROM. Limited to shoulder height. Per pt having chest pain that is sharp with full ROM. No swelling or redness of shoulder joint. Pt denies any back pain. Pt having SOB and mid sternal Chest pain. Pt advised of disposition, pt unsure if to seek ER or WIC. Reviewed WIC operating hours and that wait times vary. Advised cannot guarantee that WIC provider will not direct to ER if further medical care is needed. Reviewed home care advise, ER precautions and reasons to call back. Protocol Used: Shoulder Pain (Adult) Protocol-Based Disposition: Go to ED Now Positive Triage Question: * Difficulty breathing or unusual sweating (e.g., sweating without exertion) * All higher-acuity triage questions were negative Care Advice Discussed: * Reassurance and Education - Shoulder Pain * Pain Medicines * Reasons To Call Back - Chest pain or difficulty breathing occurs - You become worse Shoulder pain Received: Today Stephanie Frazier [facility] Clinical Support About a week ago, my shoulder started hurting, I thought I had slept on it wrong. These last few days I've been experiencing weakness in my arm and the pain is radiating into my chest and is causing my hand and fingers to have a numb/tingling feeling any time I try to lift my arm above shoulder level. Should I make an appointment to see what's going on or just head to the walk in to get it checked out? Shoulder pain (Newest Message First) View All Conversations on this Encounter [facility]supporting JOSE Tabares)44 minutes ago (4:16 PM) About a week ago, my shoulder started hurting, I thought I had slept on it wrong. These last few days I've been experiencing weakness in my arm and the pain is radiating into my chest and is causing my hand and fingers to have a numb/tingling feeling any time I try to lift my arm above shoulder level. Should I make an appointment to see what's going on or just head to the walk in to get it checked out? documented in this encounter Plan of Treatment Upcoming Encounters Date Type Department Care Team (Late st Contact Info) Description 10/10/2024 9:15 AM EDT Office Visit [facility] MEDICINE [address] [place] [address] Amy Mejia ANP [address] [place] [address] 10/13/2024 2:30 PM EDT Office Visit [facility] OPTOMETRY [address] [place] [address] Lashon Gallardo OD [address] [place] [address] documented as of this encounter Visit Diagnoses Not on filedocumented in this encounter Additional Health Concerns Assessment Noted Time PHQ-9 Depression Total Score: 18 03/23/ 024 2:56 PM EDT documented as of this encounter Care Teams Hospital Nursing Assistant Relationship Specialty Start Date End Date Amy Mejia ANP [address] [place] [address] PCP - General Family Medicine 02/01/23 Marianna Mcgovern Welding Pantograph Machine Operator 02/03/24 documented as of this encounter
--- OUTSIDE RECORDS SUMMARY | 2024-09-27 22:24 | XMS_ITS | Clinical Summary ---
Author Organization [employer] Address [address] [place] [address] Care Team Providers Care Planner Internship Name Role Phone Alexander Whitaker Primary Care Provider [phone] Allergies Active Allergy Reactions Criticality Noted Date [...] or split. 180 tablet 1 5 Active Tirzepatide-Weig ht Management (Zepbound) 2.5 MG/0.5ML solution auto-injectorInd ications:Class 2 obesity with body mass index (BMI) of 37.0 to 37.9 in adult, unspecified obesity type, unspecified whether serious comorbidity present Inject 0.5 mL (2.5 mg) under the skin 1 (one) time per week. 2 mL 5 Active ibuprofen 600 MG tabletIndication s:Acute pain of both knees Take 1 tablet (600 mg) by mouth every 8 (eight) hours if needed for moderate pain or fever. 90 tablet 5 09/25/19 25 Active Problems Problem Noted Date Diagnosed Date High liver transaminase level 06/16/2024 Assessment & Plan (06/16/2024 9:47 AM EST): Unclear if related to Concerta vs Fatty Liver and changes (Pt developed Cholestasis) Last LFTs seem to be stable and Albumin is WNL. Discussed re weight reduction options including exercise, life style modifications, diet and referral to energy specialist. Recommended to decrease soda and sugary [...] side effects (blurred vision). She's connected with [employer] Operator, Berenice Lua and reports she has an [...] Health Integration Plan Internal Follow up with [facility] Patient Self Plan Patient to utilize skills provided in intervention , Patient to [facility] as needed, Patient to engage in OP therapy , and Patient to reach out to [facility] as needed. Patient is currently engage with [facility] for OP therapy. Assessment & Plan (02/04/2024 7:27 PM EDT): -depressive symptoms improved with Abilify, but patient is experiencing side effects, will try treatment for ADHD first, then reassess symptoms and treat mood disorder Healthcare maintenance 02/25/2023 Astigmatism of both eyes 02/25/2023 Mood disorder 09/24/2017 Overview (03/23/2024): Now following w/ punch finisher Jose Gibbs and counselor at [facility]. Started on sertraline 50mg. PHQ9 and ISHAN [...] side effects (blurred vision). She's connected with [employer], Berenice Lua and reports she has an [...] Health Integration Plan Internal Follow up with [facility] Patient Self Plan Patient to utilize skills provided in intervention , Patient to reach out to [facility] team as needed, Patient to engage in OP therapy , and Patient to reach out to [facility] as needed. Patient is currently engage with [facility] for OP therapy. Assessment & Plan [...] organization. Date Type Department Care Team Description 09/27/2024 Orders Only GENERIC EXTERNAL DATA DEPARTMENT Provider, Generic External Data 09/27/[address] [address] Alexander Whitaker ANP Nurse Triage 09/21/[address] [address] Alexander Whitaker ANP Prior Authorization (Zepbound) 09/18/2024 Orders Only [address] [address] Jessie Patel CNM Elevated TSH (Primary Dx) 09/14/2024 Orders Only [address] [address] Jessie Patel CNM 09/07/2024 9:00 AM EST Office Visit [facility] [address] [place] [phone] Merlyn Kyle MD Missed period (Primary Dx) 09/07/2024 Orders Only [address] [address] Jessie Patel CNM Missed period (Primary Dx); Hot flashes 09/04/[address] [address] Marianna Mcgovern RN Care Management ([facility] TC #[id number]-lvm) 08/22/2024 6:20 PM EST Office Visit [facility] [address] [place] [phone] Flavia Reid MD RSV (acute bronchiolitis due to respiratory syncytial virus) (Primary Dx) 08/17/[address] [address] Marcela Segura, sharepoint architect 08/16/[address] [address] Janessa Merida RN 08/10/2024 11:00 AM EST Office Visit [facility] [place] [address] Alexander Whitaker ANP Gallbladder polyp (Primary Dx); Transaminitis; Acute pain of both knees; Gastroesophageal reflux disease, unspecified whether esophagitis present; Class 2 obesity with body mass index (BMI) of 37.0 to 37.9 in adult, unspecified obesity type, unspecified whether serious comorbidity present 08/10/2024 Travel 08/09/2024 Telephone [facility] [address] [place] [address] Janessa Merida RN 08/09/[address] [address] Rolanda Soria MA chart prep 08/07/2024 11:30 AM EST Office Visit [address] [address] Jessie Patel CNM Surveillance of previously prescribed contraceptive pill (Primary Dx) 08/07/2024 Travel 08/04/[address] [address] Marianna Mcgovern, MAK Care Management ([facility] TC #1-lvm) 07/21/2024 Orders Only [address] [address] Alexander Whitaker ANP 07/18/[address] [address] Stacey Leigh RN Results 07/11/2024 10:15 AM EST Office Visit [address] [address] Jessie Patel CNM Irregular menses (Primary Dx) 07/11/2024 Travel 07/06/[address] [address] Alexander Whitaker ANP Nurse Triage 07/06/[address] [address] Marianna Mcgovern, RN Care Management (C3 follow up call) 07/05/2024 Refill [facility] [address] [place] [phone] Alexander Whitaker ANP Wheezing from Last 3 Months Immunizations Name Administration [...] Pneumococcal Conjugate PCV 13 08/28/2004 ,05/16/2002,03/21/2002,10/24 Tdap 10/14/2023, 3,07/29/2018, Varicella 09/23/2015,08/28/2004 Family History Medical History Relation Name Comments Thyroid disease Maternal Cousin Liver cancer Maternal Grandfather Lung cancer Maternal Grandfather Diabetes Maternal Grandmother Diabetes Paternal Grandmother Relation Name Status Comments Maternal Cousin Other Maternal Grandfather Maternal Grandmother Paternal Grandmother Social [...] Description 10/10/2024 9:15 AM EDT Office Visit [facility] [address] [place], [place] [phone] Alexander Whitaker, ANP [address] [place], [place] [phone] 10/13/2024 2:30 PM EDT Office Visit [facility] [address] [place], [place] [phone] Sami, Lashon, OD [address] [place], [place] [phone] Health Maintenance Due Date Last Done Comments [...] Smear 09/09/2025 09/09/2022 Lipid Panel 06/12/2029 06/12/2024, 07/1 07/2023, 12/10/2021, Additional history exists DTaP/Tdap/Td Vaccines (10 [...] Name Priority Date/Time Associated Diagnosis Comments XR SHOULDER 2+ VIEWS LEFT Routine 09/27/2024 7:40 PM EST XR CHEST 2 VIEWS Routine 09/27/2024 7:38 PM EST CBC WITH AUTO DIFFERENTIAL Routine 09/27/2024 7:13 PM EST HIGH SENSITIVITY TROPONIN I Routine 09/27/2024 7:12 PM EST MAGNESIUM Routine 09/27/2024 7:12 PM EST BASIC METABOLIC PANEL Routine 09/27/2024 7:12 PM EST HEPATIC FUNCTION PANEL Routine 09/27/2024 7:12 PM EST PROTHROMBIN TIME-INR Routine 09/27/2024 7:12 PM EST SARS COV2/INFLUENZA A/B AND RSV RNA QL NAAT Routine 09/27/2024 7:12 PM EST T4, FREE Routine 09/14/2024 9:13 AM EST TSH W/REFLEX TO FT4 Routine 09/14/2024 9 :13 AM EST Missed period Hot flashes DRUG MONITOR, PANEL 1, SCREEN, URINE Routine 09/14/2024 9:12 AM EST Mood disorder (CMS/HCC) PROLACTIN Routine 09/14/2024 8:13 AM EST Missed period Hot flashes POCT , URINE Routine 09/07/2024 9:19 AM EST Missed period XR KNEE 1-2 VIEWS LEFT Routine 08/12/2024 5:43 AM EST Acute pain of both knees XR KNEE 1-2 VIEWS RIGHT Routine 08/12/2024 5:41 AM EST Acute pain of both knees POCT , URINE Routine 07/11/2024 11:06 AM EST Irregular menses US ABDOMEN COMPLETE Routine 06/30/2024 8 :48 AM EST Transaminitis LIPID PANEL, STANDARD Routine 06/12/2024 9:40 AM EST Elevated cholesterol CHLAMYDIA/N. GONORRHOEAE RNA, TMA, UROGENITAL Routine 05/30/2024 3:36 PM EST PAP SMEAR Routine 09/09/2022 12:00 AM EST from Last 3 Months or Most Recently Relevant to Health Maintenance Results * XR Shoulder 2+ Views Left (09/27/2024 7:40 PM EST) Anatomical Region Laterality Modality Upper Extremities, Shoulder Left Radi ographic Imaging 09/27/2024 7:40 PM EST Narrative 09/27/2024 7:41 PM EST ? [facility] ?[address] ?[place] [address] ?XRay Report ? Signed ? Patient: Frazier,Breena ?MR#: [id number] ? : 2000 ?Acct:[id number] ? Age/Sex: 24 / F ?ADM Date: 09/27/24 ? Loc: HO.ED ? Attending Dr: ? Ordering Physician: Vivian Vargas ?? Date of Service: 09/27/24 ?? Procedure(s): XR shoulder LT min 2V ?? Accession Number(s): [id number] ? cc: Vivian Vargas; ALEXANDER WHITAKER NP ? CLINICAL HISTORY: L shoulder pain ? 3 view left shoulder ? Comparison: None ? Findings: ?? No fractures or dislocations. ?? No significant loss of joint space or osteophytes. ?? No erosions. No radiopaque foreign body. ? IMPRESSION: ?? 1. No acute findings ? This document has been electronically signed by: Drake Calabrese MD on ?? 09/27/2024 19:40:33 ? Dictated By: ?Drake Calabrese MD ? Signed By: ?<Electronically signed by Drake Calabrese MD in OV> ? 09/27/241940 ? DD/ 39 ? TD/TT: 09/27/241939 ? Streetsweeper Operator: ? Procedure Note Hill, Dominga - 09/27/2024 [place] [address] XRay Report Signed Patient: Harjeet FrazierMR#: [id number] : 2000Acct:[id number] Age/Sex: 24 / FADM Date: 09/27/24 Loc: HO.ED Attending Dr: Ordering Physician: Vivian Vargas Date of Service: 09/27/24 Procedure(s): XR shoulder LT min 2V Accession Number(s): [id number] cc: Vivian Vargas; ALEXANDER WHITAKER NP CLINICAL HISTORY: L shoulder pain 3 view left shoulder Comparison: None Findings: No fractures or dislocations. No significant loss of joint space or osteophytes. No erosions. No radiopaque foreign body. IMPRESSION: 1. No acute findings This document has been electronically signed by: Drake Calabrese MD on 09/27/2024 19:40:33 Dictated By: Drake Calabrese MD Signed By: <Electronically signed by Drake Calabrese MD in OV> 09/27/241940 DD/ 39 TD/TT: 09/27/241939 Streetsweeper Operator: [facility] External Provider IMG XR PROCEDURES Edited Result - Final * XR Chest 2 Views (09/27/2024 7:38 PM EST) Anatomical Region Laterality Modality Chest Radiographic Kathy ging 09/27/2024 7:38 PM EST Narrative 09/27/2024 7:39 PM EST ? [facility] ?[address] ?[place] [address] ?XRay Report ? Signed ? Patient: Frazier,Breena ?MR#: [id number] ? : 2000 ?Acct:[id number] ? Age/Sex: 24 / F ?ADM Date: 09/27/24 ? Loc: HO.ED ? Attending Dr: ? Ordering Physician: Vivian Vargas ?? Date of Service: 09/27/24 ?? Procedure(s): XR chest 2V ?? Accession Number(s): [id number] ? cc: Vivian Vargas; ALEXANDER WHITAKER NP ? CLINICAL HISTORY: cp sob ? 2 view chest x-ray ? Comparison: CR/SR - CHEST 2 VIEWS - 08/22/19 15:46 EST ? Findings: ?? No consolidation or effusion. ?? Normal size heart. ?? No acute fracture. ? IMPRESSION: ?? 1. No acute findings. ? This document has been electronically signed by: Drake Calabrese MD on ?? 09/27/2024 19:38:21 ? Dictated By: ?Drake Calabrese MD ? Signed By: ?<Electronically signed by Drake Calabrese MD in OV> ? 09/27/241938 ? DD/ 37 ? TD/TT: 09/27/241937 ? Streetsweeper Operator: ? Procedure Note Hill, Dominga - 09/27/[address] [address] XRay Report Signed Patient: Harjeet FrazierMR#: [id number] : 2000Acct:[id number] Age/Sex: 24 / FADM Date: 09/27/24 Loc: .ED Attending Dr: Ordering Physician: Vivian Vargas Date of Service: 09/27/24 Procedure(s): XR chest 2V Accession Number(s): [id number] cc: Vivian Vargas; ALEXANDER WHITAKER NP CLINICAL HISTORY: cp sob 2 view chest x-ray Comparison: CR/SR - CHEST 2 VIEWS - 08/22/19 15:46 EST Findings: No consolidation or effusion. Normal size heart. No acute fracture. IMPRESSION: 1. No acute findings. This document has been electronically signed by: Drake Calabrese MD on 09/27/2024 19:38:21 Dictated By: Drake Calabrese MD Signed By: <Electronically signed by Drake Calabrese MD in OV> 09/27/241938 DD/ 37 TD/TT: 09/27/241937 Streetsweeper Operator: [facility] External Provider IMG XR PROCEDURES Edited Result - Final * CBC auto differential (09/27/2024 7:13 PM EST) White Blood Count 10.8 4.8 - 10.8 X10*3/uL [facility] Red Blood Count 4.53 4.20 - 5.50 X10*6/uL [facility] Hemoglobin 12.7 12.0 - 16.0 g/dl [facility] Hematocrit 37.4 37.0 - 47.0 % [facility] Mean Corpuscular Volume 82.6 80.0 - 98.0 fL [facility] Mean Corpuscular Hemoglobin 28.0 27.0 - 33.0 pg [facility] Mean Corpuscular HGB Conc 34.0 31.0 - 35.0 g/dl [facility] Red Cell Distribution Width 12.8 11.0 - 16.0 % [facility] Platelet Count 282 160 - 400 X10*3/uL [facility] Mean Platelet Volume 11.5 9.4 - 12.3 fL [facility] Neutrophils Percent Auto 55.2 45 - 73 % [facility] Imm Gran Pct Auto 0.3 0.0 - 0.4 % [facility] Lymphocytes Percent Auto 35.3 20 - 40 % [facility] Monocytes Percent Auto 6.8 2 - 11 % [facility] Eosinophils Percent Auto 1.9 0 - 4 % [facility] Basophils Percent Auto 0.5 0 - 2 % [facility] NRBC Pct Auto 0.0 0.0 - 0.2 /100WBC [facility] Neutrophils Absolute Auto 6.0 2.0 - 8.3 x10*3/uL [facility] Imm Gran Abs Auto 0.03 0.00 - 0.03 X10*3/uL [facility] Lymphocytes Absolute Auto 3.8 1.2 - 4.9 X10*3/uL [facility] Monocytes Absolute Auto 0.7 0.1 - 1.2 X10*3/uL [facility] Eosinophils Absolute Auto 0.2 0.0 - 0.4 X10*3/uL [facility] Basophils Absolute Auto 0.1 0.0 - 0.2 X10*3/uL [facility] NRBC Abs Auto 0.000 0.0 - 0.012 X10*3/uL [facility] 09/27/2024 7:13 PM EST 09/27/2024 7:16 PM EST us Generic External Data Provider LAB BLOOD ORDERAB LES Final Result [facility] [address] [place] [address] [phone] * High Sensitivity Troponin I (09/27/2024 7:12 PM EST) TROPONIN I HIGH SENSITIVITY <2.7 <3.5 - 17.0 ng/L [facility] Comment:The Melgoza high sens itivity Troponin-I results should beused in conjunction with other diagnostic information suchas ECG, clinical observations and information, and patientsymptoms to aid in the diagnosis of [place]. 09/27/2024 7:12 PM EST 09/27/2024 7:16 PM EST Generic External Data Provider LAB BLOOD ORDERAB LES Final Result Performing Organization Address [facility] Co de Phone Number [facility] [address] [place] [phone] * SARS-CoV-2 RNA, Influenza A/B, and RSV RNA, Ql NAAT (09/27/2024 7:12 PM EST) Influenza A PCR NEGATIVE Negative [facility] Influenza B PCR NEGATIVE Negative [facility] Resp Syncy Virus RNA Qual PCR NEGATIVE Negative [facility] SARS COV2 PCR NEGATIVE Negative [facility] Comment:All test results mus t be correlated with clinical findings.Negative results do not preclude SARS-CoV2, influenza Avirus, influenza B virus and/or RSV infectionand should not be used as the sole basis for treatment orother patient management decisions. Negative results must becombined with clinical observations, patient history, andepidemiological information.This test has not been evaluated for monitoring treatment ofinfection.This test has been authorized by the FDA under an EmergencyUse Authorization (EUA) for use by authorized laboratories.Testing performed on the [employer] GeneXpert utilizingreal-time RT-PCR.All SARS CoV2 and positive influenza A/B results arereported to [facility]. 09/27/2024 7:12 PM EST 09/27/2024 7:16 PM EST Generic External Data Provider LAB MICROBIOLOGY - GENERAL ORDERABLES Final Result Performing Organization Address [facility]/ZIP Co de Phone Number [facility] [address] [place] [phone] * (ABNORMAL) Prothrombin Time-INR (09/27/2024 7:12 PM EST) Pathologist [facility] Prothrombin Time 10.6(L) 10.9 - 12.4 SEC [facility] INTERNATIONAL NORM RATIO 0.9 0.9 - 1.1 [facility] Comment:INTERNATIONAL NORMAL IZED RATIO (INR) REFERENCE RANGES Reference RangeFor patients not on anticoagulant therapy: 0.9 - 1.1INR ranges for oral anticoagulanttherapy:For prevention and treatment of venous thrombosis and pulmonary embolism: 2.0 - 3.0For acute myocardial infarction with aspirin therapy: 2.0 - 3.0For acute myocardial infarction without aspirin therapy: 3.0 - 4.0For patients with mechanical prosthetic heart valves: 2.5 - 3.5 09/27/2024 7:12 PM EST 09/27/2024 7:16 PM EST Generic External Data Provider LAB BLOOD ORDERAB LES Final Result Performing Organization Address [facility] de Phone Number [facility] [address] [place] [phone] * Magnesium (09/27/2024 7:12 PM EST) [facility] Magnesium 2.0 1.6 - 2.6 mg/dL [facility] 09/27/2024 7:12 PM EST 09/27/2024 7:16 PM EST Generic External Data Provider LAB BLOOD ORDERAB LES Final Result Performing Organization Address [facility] de Phone Number [facility] [address] [place] [phone] * (ABNORMAL) Hepatic Function Panel (09/27/2024 7:12 PM EST) [facility] Bilirubin, Total 0.2 0.0 - 1.0 mg/dL [facility] Bilirubin, Direct <0.2 0.0 - 0.5 mg/dL [facility] Aspartate Amino Transferase 32(H) 5 - 31 U/L [facility] Alanine Aminotransferase 50(H) 0 - 31 U/L [facility] Total Protein 7.9 6.5 - 8.0 g/dL [facility] Albumin Level 4.1 3.5 - 5.0 g/dL [facility] Alkaline Phosphatase 104 39 - 117 U/L [facility] 09/27/2024 7:12 PM EST 09/27/2024 7:16 PM EST us Generic External Data Provider LAB BLOOD ORDERAB LES Final Result [facility] [address] [place] [phone] * (ABNORMAL) Basic Metabolic Panel (09/27/2024 7:12 PM EST) Sodium 141 135 - 145 mmol/L [facility] Potassium 3.7 3.3 - 5.1 mmol/L [facility] Chloride 111(H) 96 - 108 mmol/L [facility] Carbon Dioxide 23 22 - 29 mmol/L [facility] Anion Gap 11(L) 12 - 20 [facility] Urea Nitrogen (BUN) 11 9 - 16 mg/dL [facility] Creatinine, Serum 0.65 0.5 - 1.4 mg/dL [facility] Creatinine Clr Calc Pharmacy 153.9 [facility] Comment:Provided height and weight: 162.56 cm,99 kg.eGFR (calculated from the MDRD study equation) and eCrCl(calculated from the Cockcroft-Gault equation) are based ondifferent parameters and may not yield comparable results.If eCrCl result is absurd, please check patient'sheight/weight. Estimated Glomerular Filt Rate >60 [facility] Comment:Chronic Kidney Disea se: Estimated GFR < 60 mL/min/1.13c4Adwuob Kidney Disease: Estimated GFR < 15 mL/min/1.73m2 Glucose 90 60 - 115 mg/dL [facility] Calcium 9.2 8.4 - 10.2 mg/dL [facility] 09/27/2024 7:12 PM EST 09/27/2024 7:16 PM EST Generic External Data Provider LAB BLOOD ORDERAB LES Final Result Performing Organization Address [facility] de Phone Number [facility] [address] [place] [phone] * (ABNORMAL) TSH W/Reflex to FT4 (09/14/2024 9:13 AM EST) Pathologist [facility] TSH reflex Free T4 4.01(H) 0.32 - 4.0 uIU/mL [facility] Blood Venous blood specimen / Unknown 09/14/2024 9:13 AM EST 09/14/2024 11:36 AM EST Jessie Patel [facility] BLOOD ORDERABLES Greer l Result Performing Organization Address [facility] Phone Number [facility] [address] [place] [phone] * T4, Free (09/14/2024 9:13 AM EST) [facility] Free T4 (Free Thyroxine) 0.98 0.71 - 1.85 ng/dL [facility] 09/14/2024 9:13 AM EST 09/14/2024 11:36 AM EST Jessie Patel [facility] BLOOD ORDERABLES Greer l Result Performing Organization Address [facility] de Phone Number [facility] [address] [place] [phone] * Drug Monitoring, Panel 1, Screen, Urine (09/14/2024 9:12 AM EST) Pathologist [facility] Opiate Screen Urine Not Detected Not Detect [facility] Comment:Opiate cut-off is 30 0 ng/mL.Positive results are unconfirmed and should not be used fornon-medical purposes. Barbiturates, Urine Not Detected Not Detect [facility] Comment:Barbiturate cut-off is 200 ng/mL.Positive results are unconfirmed and should not be used fornon-medical purposes. Phencyclidine Screen Urine Not Detected Not Detect [facility] Comment:Phencyclidine cut-of f is 25 ng/mL.Positive results are unconfirmed and should not be used fornon-medical purposes. Amphetamine Screen Urine Not Detected Not Detect [facility] Comment:Amphetamine cut-off is 1000 ng/mL.Positive results are unconfirmed and should not be used fornon-medical purposes. Benzodiazepines Screen Urine Not Detected Not Detect [facility] Comment:Benzodiazepine cut-o ff is 200 ng/mL.Positive results are unconfirmed and should not be used fornon-medical purposes. Cocaine Screen Urine Not Detected Not Detect [facility] Comment:Cocaine cut-off is 3 00 ng/mL.Positive results are unconfirmed and should not be used fornon-medical purposes. Cannabinoid Screen Urine Not Detected Not Detect [facility] Comment:Cannabinoid cut-off is 50 ng/mL.Positive results are unconfirmed and should not be used fornon-medical purposes. Methadone Screen, Urine Not Detected Not Detect ng/mL [facility] Comment:Methadone cut-off is 300 ng/mL.Positive results are unconfirmed and should not be used fornon-medical purposes. FENTANYL URINE Not Detected Not Detect [facility] Comment:Fentanyl cut-off is 1 ng/mL.Positive results are unconfirmed and should not be used fornon-medical purposes. Oxycodone Urine Screen Not Detected Not Detect ng/mL [facility] Comment:Oxycodone cut-off is 100 ng/mL.Positive results are unconfirmed and should not be used fornon-medical purposes. Buprenorphine Screen Not Detected Not Detect ng/mL [facility] Comment:Buprenorphine cut-of f is 5 ng/mL.Positive results are unconfirmed and should not be used fornon-medical purposes. Urine (Urine, Random) 09/14/2024 9:12 AM EST 09/14/2024 11:32 AM EST Jorden Mckinney [facility] URINE ORDERABLES Final Re sult Performing Organization Address [facility] Co de Phone Number [facility] [address] [place] [address] [phone] * Prolactin (09/14/2024 8:13 AM EST) Prolactin 7.5 ng/mL [facility] Comment:Reference Range Fema les Non- 3.0-30.0 10.0-209.0 Postmenopausal 2.0-20.0THIS TEST WAS PERFORMED AT:[employer] [place] [id number] LI MD Blood Venous blood specimen / Unknown 09/14/2024 8:13 AM EST 09/14/2024 11:36 AM EST Jessie Patel [facility] BLOOD ORDERABLES Greer l Result Performing Organization Address [facility] de Phone Number [facility] [address] [place] [phone] * POCT , urine manually resulted (09/07/2024 9:19 AM EST) Only the most recent of2 resultswithin the time period is included. Preg Test, Ur Negative Negative, Indeterminate, None Detected, Invalid, Specimen unsatisfactory for evaluation, Weakly Positive Urine 09/07/2024 9:19 AM EST Merlyn Kyle MD POINT OF CARE TEST ENTER/EDIT OR DERABLES Final Result * XR Knee 1-2 Views Left (08/12/2024 5:43 AM EST) Anatomical Region Laterality Modality Lower Extremities, Knee Left Radiogra phic Imaging 08/12/2024 5:43 AM EST Narrative 08/12/2024 5:44 AM EST ? [facility] ?[address] ?[place] [address] ?XRay Report ? Signed ? Patient: Frazier,Breena ?MR#: [id number] ? : 2000 ?Acct:[id number] ? Age/Sex: 24 / F ?ADM Date: 08/10/24 ? Loc: HO.XRAY ? Attending Dr: Alexander Whitaker ENGINEERING [employer] ? Ordering Physician: ALEXANDER WHITAKER NP ?? Date of Service: 08/10/24 ?? Procedure(s): XR knee LT 2V ?? Accession Number(s): [id number] ? cc: ALEXANDER WHITAKER NP ? CLINICAL [...] MD in OV> ?08/12/24 0544 ? DD/ 05 ? TD/TT: 08/12/24542 ? Streetsweeper Operator: ? Procedure Note Hill, Dominga - 08/12/[address] [address] XRay Report Signed Patient: Harjeet FrazierMR#: [id number] : 2000Acct:[id number] Age/Sex: 24 / FADM Date: 08/10/24 Loc: MANOJ Attending Dr: Alexander Whitaker NP Ordering Physician: ALEXANDER WHITAKER NP Date of Service: 08/10/24 Procedure(s): XR knee LT 2V Accession Number(s): [id number] cc: ALEXANDER WHITAKER NP CLINICAL HISTORY: atraumatic [...] in OV> 08/12/24 0544 DD/ 2 TD/TT: 08/12/24 0543 Streetsweeper Operator: us Alexander Whitaker ANP IMG XR PROCEDURES Final Result * XR Knee 1-2 Views Right (08/12/2024 5:41 AM EST) Anatomical Region Laterality Modality Lower Extremities, Knee Right Radiogra phic Imaging 08/12/2024 5:41 AM EST Narrative 08/12/2024 5:42 AM EST ? [facility] ?[address] ?[place] [address] ?XRay Report ? Signed ? Patient: Frazier,Breena ?MR#: [id number] ? : 2000 ?Acct:[id number] ? Age/Sex: 24 / F ?ADM Date: 08/10/24 ? Loc: HO.XRAY ? Attending Dr: Alexander Whitaker NP ? Ordering Physician: ALEXANDER WHITAKER NP ?? Date of Service: 08/10/24 ?? Procedure(s): XR knee RT 2V ?? Accession Number(s): [id number] ? cc: ALEXANDER WHITAKER NP ? CLINICAL [...] DD/ 0541 ? TD/TT: 08/12/24 0541 ? Streetsweeper Operator: ? Procedure Note Dominga Alejandre - 08/12/[address] [address] XRay Report Signed Patient: Harjeet FrazierMR#: [id number] : 2000Acct:[id number] Age/Sex: 24 / FADM Date: 08/10/24 Loc: MANOJ Attending Dr: Alexander Whitaker ENGINEERING [employer] TITLES Ordering Physician: ALEXANDER WHITAKER NP Date of Service: 08/10/24 Procedure(s): XR knee RT 2V Accession Number(s): [id number] cc: ALEXANDER WHITAKER NP CLINICAL HISTORY: atraumatic [...] in OV> 08/12/24 0542 DD/ 0541 TD/TT: 08/12/2441 Streetsweeper Operator: us Alexander Whitaker ANP IMG XR PROCEDURES Final Result * US Abdomen Complete (06/30/2024 8:48 AM EST) Anatomical Region Laterality Modality Abdomen Ultrasound 06/30/2024 8:48 AM EST Narrative 07/16/2024 1:10 PM EST ? [facility] ?[address] ?[place] [address] ? Ultrasound Report ? Signed ? Patient: Harjeet Frazier ?MR#: [id number] ? : 2000 ?Acct:[id number] ? Age/Sex: 23 / F ?ADM Date: 06/30/24 ? Loc: HO.US ? Attending Dr: Alexander Whitaker ENGINEERING JOB TITLES ? Ordering Physician: ALEXANDER WHITAKER NP ?? Date of Service: 06/30/24 ?? Procedure(s): US abdomen complete ?? Accession Number(s): [id number] ? cc: ALEXANDER WHITAKER NP ? EXAMINATION: [...] DD/ 0848 ? TD/TT: 06/30/24 0909 ? Streetsweeper Operator: HS ? Procedure Note Dominga Alejandre - 07/16/[address] [address] Ultrasound Report Signed Patient: Harjeet FrazierMR#: [id number] : 2000Acct:[id number] Age/Sex: 23 / FADM Date: 06/30/24 Loc: HO.US Attending Dr: Alexander Whitaker NP Ordering Physician: ALEXANDER WHITAKER NP Date of Service: 06/30/24 Procedure(s): US abdomen complete Accession Number(s): [id number] cc: ALEXANDER WHITAKER NP EXAMINATION: US ABDOMEN [...] by: Viky Deleon MD 07/16/2024 01:07 PM [facility] Dictated By: Viky Deleon MD Signed By: <Electronically signed by Viky Deleon MD in OV> 07/16/24 1307 DD/ 0848 TD/TT: 06/30/24 0909 Streetsweeper Operator: HS Alexander Whitaker ANP IMG US PROCEDURES Edited Result - Final * (ABNORMAL) Lipid Panel, Standard (06/12/2024 9:40 AM EST) Triglycerides 98 <150 mg/dL [facility] Comment:Desirable Triglyceri de: less than 150 mg/dLBorderline High Triglyceride 150-199 mg/dLHigh Triglyceride: 200-499 mg/dLVery High Triglyceride: greater than or equal to 5OO mg/dL Cholesterol 155 <200 mg/dL [facility] Comment:Desirable Cholestero l: less than 200 mg/dLBorderline High Cholesterol: 200-239 mg/dLHigh Cholesterol: greater than 239 mg/dL LDL Cholesterol Calculated 105(H) <100 mg/dL [facility] Comment:Desirable LDL: less than 100 mg/dLNear Optimal/Above Optimal LDL: 110- 129 mg/dLBorderline High LDL: 130-159 mg/dLHigh LDL: 160-189 mg/dLVery High LDL: greater than or equal to 190 mg/dL HDL Cholesterol 31(L) >40 mg/dL [facility] Comment:Desirable HDL: great er than 40 mg/dL Note: This HDL assay may give artificially low results in patients with liver disease. Blood Venous blood specimen / Unknown 06/12/2024 9:40 AM EST 06/12/2024 11:32 AM EST Alexander Whitaker ANP LAB BLOOD ORDERABLES Final Resul t [facility] [address] [place] [phone] * Chlamydia/N. Gonorrhoeae RNA, TMA, Urogenitial (05/30/2024 3:36 PM EST) CT PCR NOT DETECTED Not Detect. [facility] Comment:A not detected test result does [...] psychologicalconsequences. NG PCR NOT DETECTED Not Detect. [facility] Comment:A not detected test result does [...] PM EST 05/30/2024 3:40 PM EST Narrative [facility] - 05/30/2024 5:19 PM EST Vaginal us Generic External Data Provider LAB MICROBIOLOGY - GENERAL ORDERABLES Final Result Performing Organization Address City/[facility]/ZIP Co de Phone Number [facility] [address] [place] [phone] * Pap Smear (09/09/2022 12:00 AM EST) Swab us Stacey MadridMcminn LAB CYTOLOGY ORDERABLES Final Re sult Performing Organization Address City/[facility]/ZIP Co de Phone Number [facility] [address] [place] [phone] from Last 3 Months or Most Recently Relevant to Health Maintenance Insurance [facility] C3 Care Teams Planner Internship Relationship Specialty Start Date End Date Alexander Whitaker ANP [address] [place] [address] PCP - General Family Medicine 02/01/23 Marianna Mcgovern Car Dryer 02/03/24
--- OUTSIDE RECORDS SUMMARY | 2024-09-27 22:24 | XMS_ITS | Encounter Summary ---
Author Organization [employer] Address [address] [facility] [address]t [place] [address] Care Team Providers Care Jointer Operator Name Role Phone Amy Mejia Primary Care Provider [phone] Reason for Visit * Reason Onset Date Comments Prior Authorization 09/21/2024 Zepbound Encounter Details Date Type Department Care Team ([facility] Contact Info) Description 09/21/2024 Telephone [facility] [address] [place], [place] [phone] Amy Mejia ANP [address] [place] [phone] Prior Authorization (Zepbound) Social History Tobacco Use Types Packs/Day Years [...] encounter Miscellaneous Notes * Telephone Encounter - Randy Soria MA - 09/25/2024 8:48 AM EST Medical necessity form has been signed by PCP and faxed to [facility]. Form is sent in for scanning. * Telephone Encounter - Liz Garcia - 09/21/2024 1:21 PM EST MYCHAL Mason from [facility] placed on PCP desk for signature. documented in this encounter Plan of Treatment Upcoming Encounters Date Type Department Care Team (Late st Contact Info) Description 10/10/2024 9:15 AM EDT Office Visit [facility] [address] [place] [address] Amy Mejia ANP [address] [place] [address] 10/13/2024 2:30 PM EDT Office Visit [facility] [address] [place] [address] Lashon Gallardo, JAIME [address] [place] [address] documented as of this encounter Visit Diagnoses Not on filedocumented in this encounter Additional Health Concerns Assessment Noted Time PHQ-9 Depression Total Score: 18 024 2:56 PM EDT documented as of this encounter Care Teams Jointer Operator Relationship Specialty Start Date End Date Amy Mejia ANP [address] [place] [address] PCP - General Family Medicine 02/01/23 Marianna Mcgovern Central Office Frame Wirer 02/03/24 documented as of this encounter
--- OUTSIDE RECORDS SUMMARY | 2024-09-27 22:24 | XMS_ITS | Encounter Summary ---
Author Organization [employer] Address [address] [facility] [address] [place] [address] Care Team Providers Care Germination Worker Name Role Phone Amy Mejia Primary Care Provider [phone] Reason for Visit * Reason Onset Date Comments Nurse Triage 03/26/2023 Encounter Details Date Type Department Care Team ([facility] st Contact Info) Description 03/26/2023 Telephone [facility] [address] [place], [place] [phone] Amy Mejia ANP [address] [place] [address] Nurse Triage Social History Tobacco Use Types [...] number, Messages left to return call to [phone]. * Telephone Encounter - Radha Sainz - 03/26/2023 10:13 AM EDT Patient calling to report heartburn . Patient speaks Japanese. Advised triage nurse will call patient back. documented in this encounter Plan of Treatment Upcoming Encounters Date Type Department Care Team (Late st Contact Info) Description 10/10/2024 9:15 AM EDT Office Visit [facility] [address] [place] [address] Amy Mejia ANP [address] [place] [address] 10/13/2024 2:30 PM EDT Office Visit [facility] [address] [place] [address] Sami, Lashon, OD [address] [place] [address] documented as of this encounter Visit Diagnoses Not on filedocumented in this encounter Additional Health Concerns Assessment Noted Time PHQ-9 Depression Total Score: 5 02/26/20 23 1:11 PM EDT documented as of this encounter Care Teams Germination Worker Relationship Specialty Start Date End Date Amy Mejia ANP [address] [place] [address] PCP - General Family Medicine 02/01/23 Marianna Mcgovern Helmet Binder 02/03/24 documented as of this encounter
--- OUTSIDE RECORDS SUMMARY | 2024-09-27 22:24 | XMS_ITS | Encounter Summary ---
Author Organization [employer] Address [address] [facility] [address] [place] [address] Care Team Providers Care Transportation Department Supervisor Name Role Phone Amy Mejia Primary Care Provider [phone] Reason for Visit * Reason Comments Late Period Encounter Details Date Type Department Care Team (Late st Contact Info) Description 09/07/2024 9:00 AM EST Office Visit [facility] [address] [place] [address] Merlyn Kyle MD [address] [place], [place] [phone] Missed period (Primary Dx) Social History Tobacco [...] with others, in a hotel, in a fci, living outside on the street, on a [...] Description 10/10/2024 9:15 AM EDT Office Visit [facility] [address] [place] [address] Amy Mejia ANP [address] [place] [address] 10/13/2024 2:30 PM EDT Office Visit [facility] [address] [place] [address] Sami, Lashon, OD [address] [place] [address] documented as of this encounter Procedures Procedure [...] documented as of this encounter Care Teams Transportation Department Supervisor Relationship Specialty Start Date End Date Amy Mejia ANP [address] [place] [address] PCP - General Family Medicine 02/01/23 Marianna Mcgovern Autom[employer] Fleet Supervisor 02/03/24 documented as of this encounter
--- OUTSIDE RECORDS SUMMARY | 2024-09-27 22:24 | XMS_ITS | Encounter Summary ---
Author Organization [employer] Address [address] [facility] [address]t [place] [address] Care Team Providers Care Critical Systems Technician Name Role Phone Alexander Whitaker Primary Care Provider [phone] Encounter Details Date Type Department Care Team (Late st Contact Info) Description 09/27/2024 Orders Only GENERIC EXTERNAL DATA DEPARTMENT Provider, Generic External Data Social History Tobacco Use Types Packs/Day Years [...] [facility] [address] [place] [address] Alexander Whitaker, ANP [address] [place] [address] 10/13/2024 2:30 PM EDT Office Visit [facility] OPTOMETRY [address] [place] [address] Lashon Gallardo, OD [address] [place] [address] documented as of this encounter Procedures Procedure Name Priority Date/Time Associated Diagnosis Comments XR SHOULDER 2+ VIEWS LEFT Routine 09/27/2024 7:40 PM EST XR CHEST 2 VIEWS Routine 09/27/2024 7:38 PM EST CBC WITH AUTO DIFFERENTIAL Routine 09/27/2024 7:13 PM EST HIGH SENSITIVITY TROPONIN I Routine 09/27/2024 7:12 PM EST SARS COV2/INFLUENZA A/B AND RSV RNA QL NAAT Routine 09/27/2024 7:12 PM EST PROTHROMBIN TIME-INR Routine 09/27/2024 7:12 PM EST MAGNESIUM Routine 09/27/2024 7:12 PM EST HEPATIC FUNCTION PANEL Routine 09/27/2024 7:12 PM EST BASIC METABOLIC PANEL Routine 09/27/2024 7:12 PM EST documented in this encounter Results * XR Shoulder 2+ Views Left (09/27/2024 7:40 PM EST) Anatomical Region Laterality Modality Upper Extremities, Shoulder Left Radi ographic Imaging 09/27/2024 7:40 PM EST Narrative 09/27/2024 7:41 PM EST ? [facility] ?[address] ?[place] [address] ?XRay Report ? Signed ? Patient: Frazier,Breena ?MR#: [id number] ? : 2000 ?Acct:[id number] ? Age/Sex: 24 / F ?ADM Date: 09/27/24 ? Loc: HO.ED ? Attending Dr: ? Ordering Physician: Vivian Vargas ?? Date of Service: 09/27/24 ?? Procedure(s): XR shoulder LT min 2V ?? Accession Number(s): [id number] ? cc: Vivian Vargas; ALEXANDER WHITAKER NP [...] ? DD/ 39 ? TD/TT: 09/27/241939 ? Tractor Operator Laser Leveling: ? Procedure Note Dominga Alejandre - 09/27/[address] [place] [address] XRay Report Signed Patient: Harjeet FrazierMR#: [id number] : 2000Acct:[id number] Age/Sex: 24 / FADM Date: 09/27/24 Loc: HO.ED Attending Dr: Ordering Physician: Vivian Vargas Date of Service: 09/27/24 Procedure(s): XR shoulder LT min 2V Accession Number(s): [id number] cc: Vivian Vargas; ALEXANDER WHITAKER NP CLINICAL [...] in OV> 09/27/241940 DD/ 39 TD/TT: 09/27/241939 Tractor Operator Laser Leveling: [facility] External Provider IMG XR PROCEDURES Edited Result - Final * XR Chest 2 Views (09/27/2024 7:38 PM EST) Anatomical Region Laterality Modality Chest Radiographic Kathy ging 09/27/2024 7:38 PM EST Narrative 09/27/2024 7:39 PM EST ? [facility] ?[address] [facility] ?[place] [address] ?XRay Report ? Signed ? Patient: Frazier,Breena ?MR#: [id number] ? : 2000 ?Acct:[id number] ? Age/Sex: 24 / F ?ADM Date: 03/05/25 ? Loc: HO.ED ? Attending Dr: ? Ordering Physician: Vivian Vargas ?? Date of Service: 09/27/24 ?? Procedure(s): XR chest 2V ?? Accession Number(s): [id number] ? cc: Vivian Vargas; ALEXANDER WHITAKER NP [...] by Drake Calabrese MD in OV> ? 09/27/249 ? DD/ 37 ? TD/TT: 09/27/241937 ? Tractor Operator Laser Leveling: ? Procedure Note Donkaminiangiter, Image - 09/27/2024 [place] [address] XRay Report Signed Patient: Arpit Frazier#: [id number] : 2000Acct:[id number] Age/Sex: 24 FADM Date: 09/27/24 Loc: HO.ED Attending Dr: Ordering Physician: Vivian Vargas Date of Service: 09/27/24 Procedure(s): XR chest 2V Accession Number(s): [id number] cc: Vivian Vargas; ALEXANDER WHITAKER NP CLINICAL [...] in OV> 09/27/241938 DD/ 37 TD/TT: 09/27/241937 Tractor Operator Laser Leveling: [facility] External Provider IMG XR PROCEDURES Edited Result - Final * CBC auto differential (09/27/2024 7:13 PM EST) White Blood Count 10.8 4.8 - 10.8 X10*3/uL [facility] Red Blood Count 4.53 4.20 - 5.50 X10*6/uL [facility] Hemoglobin 12.7 12.0 - 16.0 g/dl [facility] Hematocrit 37.4 37.0 - 47.0 % [facility] Mean Corpuscular Volume 82.6 80.0 - 98.0 fL [facility] Mean Corpuscular Hemoglobin 28.0 27.0 - 33.0 pg [facility] Mean Corpuscular HGB Conc 34.0 31.0 - 35.0 g/dl [facility] Red Cell Distribution Width 12.8 11.0 - 16.0 % [facility] Platelet Count 282 160 - 400 X10*3/uL [facility] Mean Platelet Volume 11.5 9.4 - 12.3 fL [facility] Neutrophils Percent Auto 55.2 45 - 73 % [facility] Imm Gran Pct Auto 0.3 0.0 - 0.4 % [facility] Lymphocytes Percent Auto 35.3 20 - 40 % [facility] Monocytes Percent Auto 6.8 2 - 11 % [facility] Eosinophils Percent Auto 1.9 0 - 4 % [facility] Basophils Percent Auto 0.5 0 - 2 % [facility] NRBC Pct Auto 0.0 0.0 - 0.2 /100WBC [facility] Neutrophils Absolute Auto 6.0 2.0 - 8.3 x10*3/uL [facility] Imm Gran Abs Auto 0.03 0.00 - 0.03 X10*3/uL [facility] Lymphocytes Absolute Auto 3.8 1.2 - 4.9 X10*3/uL [facility] Monocytes Absolute Auto 0.7 0.1 - 1.2 X10*3/uL [facility] Eosinophils Absolute Auto 0.2 0.0 - 0.4 X10*3/uL [facility] Basophils Absolute Auto 0.1 0.0 - 0.2 X10*3/uL [facility] NRBC Abs Auto 0.000 0.0 - 0.012 X10*3/uL [facility] 09/27/2024 7:13 PM EST 09/27/2024 7:16 PM EST Generic External Data Provider LAB BLOOD ORDERAB LES Final Result Performing Organization Address [facility] Co de Phone Number [facility] [address] [place] [phone] * SARS-CoV-2 RNA, Influenza A/B, and RSV RNA, Ql NAAT (09/27/2024 7:12 PM EST) Pathologist [facility] Influenza A PCR NEGATIVE Negative [facility] Influenza B PCR NEGATIVE Negative [facility] Resp Syncy Virus RNA Qual PCR NEGATIVE Negative [facility] SARS COV2 PCR NEGATIVE Negative [facility] Comment:All test results mus t [...] use by authorized laboratories.Testing performed on the [employer] GeneXpert utilizingreal-time RT-PCR.All SARS CoV2 and positive influenza A/B results arereported to [facility]. 09/27/2024 7:12 PM EST 09/27/2024 7:16 PM EST Generic External Data Provider LAB MICROBIOLOGY - GENERAL ORDERABLES Final Result Performing Organization Address [facility]/ZIP Co de Phone Number [facility] [address] [place] [phone] * High Sensitivity Troponin I (09/27/2024 7:12 PM EST) TROPONIN I HIGH SENSITIVITY <2.7 <3.5 - 17.0 ng/L [facility] Comment:The [place] high sens itivity Troponin-I results should beused in conjunction with other diagnostic information suchas ECG, clinical observations and information, and patientsymptoms to aid in the diagnosis of [place]. 09/27/2024 7:12 PM EST 09/27/2024 7:16 PM EST Generic External Data Provider LAB BLOOD ORDERAB LES Final Result Performing Organization Address [facility]/ZIP Co de Phone Number [facility] [address] [place] [phone] * Magnesium (09/27/2024 7:12 PM EST) Pathologist [facility] Magnesium 2.0 1.6 - 2.6 mg/dL [facility] 09/27/2024 7:12 PM EST 09/27/2024 7:16 PM EST Generic External Data Provider LAB BLOOD ORDERAB LES Final Result Performing Organization Address [facility] Co de Phone Number [facility] [address] [place] [phone] * (ABNORMAL) Basic Metabolic Panel (09/27/2024 7:12 PM EST) Pathologist [facility] Sodium 141 135 - 145 mmol/L [facility] Potassium 3.7 3.3 - 5.1 mmol/L [facility] Chloride 111(H) 96 - 108 mmol/L [facility] Carbon Dioxide 23 22 - 29 mmol/L [facility] Anion Gap 11(L) 12 - 20 [facility] Urea Nitrogen (BUN) 11 9 - 16 mg/dL [facility] Creatinine, Serum 0.65 0.5 - 1.4 mg/dL [facility] Creatinine Clr Calc Pharmacy 153.9 [facility] Comment:Provided height and weight: 162.56 cm,99 kg.eGFR (calculated from the MDRD study equation) and eCrCl(calculated from the Cockcroft-Gault equation) are based ondifferent parameters and may not yield comparable results.If eCrCl result is absurd, please check patient'sheight/weight. Estimated Glomerular Filt Rate >60 [facility] Comment:Chronic Kidney Disea se: Estimated GFR < 60 mL/min/1.57m0Rjvctu Kidney Disease: Estimated GFR < 15 mL/min/1.73m2 Glucose 90 60 - 115 mg/dL [facility] Calcium 9.2 8.4 - 10.2 mg/dL [facility] 09/27/2024 7:12 PM EST 09/27/2024 7:16 PM EST Generic External Data Provider LAB BLOOD ORDERAB LES Final Result Performing Organization Address [facility] Co de Phone Number [facility] [address] [place] [phone] * (ABNORMAL) Hepatic Function Panel (09/27/2024 7:12 PM EST) Bilirubin, Total 0.2 0.0 - 1.0 mg/dL [facility] Bilirubin, Direct <0.2 0.0 - 0.5 mg/dL [facility] Aspartate Amino Transferase 32(H) 5 - 31 U/L [facility] Alanine Aminotransferase 50(H) 0 - 31 U/L [facility] Total Protein 7.9 6.5 - 8.0 g/dL [facility] Albumin Level 4.1 3.5 - 5.0 g/dL [facility] Alkaline Phosphatase 104 39 - 117 U/L [facility] 09/27/2024 7:12 PM EST 09/27/2024 7:16 PM EST Generic External Data Provider LAB BLOOD ORDERAB LES Final Result Performing Organization Address [facility] de Phone Number [facility] [address] [place] [address] [phone] * (ABNORMAL) Prothrombin Time-INR (09/27/2024 7:12 PM EST) Prothrombin Time 10.6(L) 10.9 - 12.4 SEC [facility] INTERNATIONAL NORM RATIO 0.9 0.9 - 1.1 [facility] Comment:INTERNATIONAL NORMAL IZED RATIO (INR) REFERENCE [...] ORDERAB LES Final Result Performing Organization Address City/State/[facility] Co de Phone Number [facility] [address] [place] [phone] documented in this encounter Visit Diagnoses Not on filedocumented in this encounter Additional Health Concerns Assessment Noted Time PHQ-9 Depression Total Score: 18 024 2:56 PM EDT documented as of this encounter Care Teams Critical Systems Technician Relationship Specialty Start Date End Date Alexander Whitaker ANP [address] [place] [address] PCP - General Family Medicine 02/01/23 Marianna Mcgovern Casework Supervisor 02/03/24 documented as of this encounter
--- OUTSIDE RECORDS SUMMARY | 2024-09-27 22:24 | XMS_ITS | Encounter Summary ---
Author Organization [employer] Address [address] [facility] [address] [place] [address] Care Team Providers Care Federal Judicial Law Clerk Name Role Phone Amy Mejia Primary Care Provider Encounter Details Date Type Department Care Team ([facility] st Contact Info) Description 09/14/2024 Orders Only [facility] MEDICINE [address] [place], [place] [phone] Jessie Patel CNM [address] [place], [place] [phone] Social History Tobacco Use Types Packs/Day Years [...] with others, in a hotel, in a senior living, living outside on the street, on a [...] Description 10/10/2024 9:15 AM EDT Office Visit [facility] MEDICINE [address] [place] [address] Amy Mejia, ANP [address] [place] [address] 10/13/2024 2:30 PM EDT Office Visit [facility] OPTOMETRY [address] [place] [address] Lashon Gallardo, OD [address] [place] [address] documented as of this encounter Procedures Procedure Name Priority Date/Time Associated Diagnosis Comments T4, FREE Routine 09/14/2024 9:13 AM EST documented in this encounter Results * T4, Free (09/14/2024 9:13 AM EST) Free T4 (Free Thyroxine) 0.98 0.71 - 1.85 ng/dL [facility] 09/14/2024 9:13 AM EST 09/14/2024 11:36 AM EST us Jessie Patel CNM LAB BLOOD ORDERABLES Greer l Result [facility] [address] [place] [address] [phone] documented in this encounter Visit Diagnoses Not on filedocumented in this encounter Additional Health Concerns Assessment Noted Time PHQ-9 Depression Total Score: 18 024 2:56 PM EDT documented as of this encounter Care Teams Federal Judicial Law Clerk Relationship Specialty Start Date End Date Amy Mejia ANP [address] [place] [address] PCP - General Family Medicine 02/01/23 Marianna Mcgovern Filter Washer 02/03/24 documented as of this encounter
--- OUTSIDE RECORDS SUMMARY | 2024-09-27 22:24 | XMS_ITS | Encounter Summary ---
Author Organization [email or web address] Address [address] [facility] [address] [place] [address] Care Team Providers Care Diving Board Assembler Name Role Phone Amy Mejia Primary Care Provider [phone] Reason for Visit * Reason Onset Date Comments Medication Question 02/03/2024 Encounter Details Date Type Department Care Team ([facility] st Contact Info) Description 02/03/2024 Telephone [facility] MEDICINE [address] [place], [place] [phone] Amy Mejia ANP [address] [place] [address] Medication Question Social History Tobacco Use Types [...] it has been sent. Please contact at [phone] * Telephone Encounter - Radha Sainz - [...] Description 10/10/2024 9:15 AM EDT Office Visit [facility] MEDICINE [address] [place] [address] Amy Mejia ANP [address] [place] [address] 10/13/2024 2:30 PM EDT Office Visit [facility] OPTOMETRY [address] [place] [address] Lashon Gallardo, OD [address] [place] [address] documented as of this encounter Visit Diagnoses Not on filedocumented in this encounter Additional Health Concerns Assessment Noted Time PHQ-9 Depression Total Score: 8 02/03/20 24 10:56 AM EDT documented as of this encounter Care Teams Diving Board Assembler Relationship Specialty Start Date End Date Amy Mejia ANP [address] [place] [address] PCP - General Family Medicine 02/01/23 Marianna Mcgovern Shear Scrapman 02/03/24 documented as of this encounter
[2024-09-28 00:39] VITALS: BP 135/81; PULSE 96; RESP 16; TEMP 37; O2SAT 96
--- NOTE | 2024-09-28 00:39 | PC.NURSE ---
Amanda by cleared for dc home.
== END 2024-09-28 00:40 | disposition home or self-care (01) ==
PROVIDERS: Physician Assistant; Emergency Provider Emergency Medicine; PCP Nurse Practitioner Primary Care
DX: M54.12 Radiculopathy, cervical region (principal); R07.89 Other chest pain; R06.02 Shortness of breath
CPT/HCPCS: 0241U; 71046; 73030; 80048; 80076; 83735; 84484; 85025; 85610; 93005; 99283; 99284

== ENCOUNTER → 2024-09-27 17:58 | Outpatient (BNV) | payer MEDICAID, SELFPAY | PROVIDERS: Emergency Provider Emergency Medicine; PCP Nurse Practitioner Primary Care; Visit Provider Internal Medicine Cardiovascular Disease | DX: R00.0 Tachycardia, unspecified (principal) | CPT/HCPCS: 93010 ==

== ENCOUNTER → 2024-09-27 19:03 | Outpatient (BNV) | payer MEDICAID, SELFPAY | PROVIDERS: PCP Nurse Practitioner Primary Care; Visit Provider Radiology Diagnostic Radiology | DX: R07.9 Chest pain, unspecified (principal); R06.02 Shortness of breath; M25.512 Pain in left shoulder | CPT/HCPCS: 71046; 73030 ==

== ENCOUNTER 2024-10-14 08:31 | Outpatient (REF) | payer MEDICAID, SELFPAY ==
--- NOTE | ~2024-10-14 | MR_ITS ---
EXAMINATION: MR CERVICAL SPINE WITHOUT CONTRAST CLINICAL INFORMATION: Numbness and tingling, left upper extremity COMPARISON: None available. TECHNIQUE: MRI of the cervical spine was obtained using routine sequences without contrast. FINDINGS: Craniocervical junction is intact. No bone marrow STIR signal abnormality. The alignment is normal. Cervical spinal cord caliber and signal are normal. C2-3: Normal. C3-4: Normal. C4-5: Normal. C5-6: Normal. C6-7: Normal. C7-T1: Normal. No prevertebral compartment hematoma, mass or fluid collection. Flow-void signal within the main vessels is normal. Right vertebral artery is slightly dominant. MR/MR cervical spine wo con IMPRESSION: No acute fracture or listhesis. No cord compression, cord edema and or myelopathy. Normal exam. Electronically signed by: Canelo Rogers MD 10/17/2024 07:24 AM EDT
== END 2024-10-14 08:32 | disposition home or self-care (01) ==
LOC: HO.MRI 08:31
PROVIDERS: PCP Nurse Practitioner Primary Care; Visit Provider Nurse Practitioner Primary Care
DX: M25.512 Pain in left shoulder (principal); M79.2 Neuralgia and neuritis, unspecified; R29.898 Other symptoms and signs involving the musculoskeletal system
CPT/HCPCS: 72141

== ENCOUNTER → 2024-10-14 08:31 | Outpatient (BNV) | payer MEDICAID, SELFPAY | PROVIDERS: PCP Nurse Practitioner Primary Care; Visit Provider Radiology Diagnostic Radiology | DX: M25.512 Pain in left shoulder (principal) | CPT/HCPCS: 72141 ==

== ENCOUNTER 2024-10-24 16:13 | Outpatient (REF) | payer MEDICAID, SELFPAY ==
--- OUTSIDE RECORDS SUMMARY | 2024-10-24 18:47 | XMS_ITS | Encounter Summary ---
Author Organization [employer] Address [address] [facility] [address]t [place] [address] Care Team Providers Care Teacher Emotionally Impaired Name Role Phone Amy Mejia Primary Care Provider [phone] Reason for Visit * Reason Onset Date Comments Nurse Triage 03/26/2023 Encounter Details Date Type Department Care Team ([facility] st Contact Info) Description 03/26/2023 Telephone [facility] MEDICINE [address] [place], [place] [phone] Amy Mejia ANP [address] [place] [address] Nurse Triage Social History Tobacco Use Types [...] number, Messages left to return call to [phone]. * Telephone Encounter - Radha Sainz - 03/26/2023 10:13 AM EDT Patient calling to report heartburn . Patient speaks Tajik. Advised triage nurse will call patient back. documented in this encounter Plan of Treatment Upcoming Encounters Date Type Department Care Team (Late st Contact Info) Description 01/05/2025 9:30 AM EDT Office Visit [facility] MEDICINE [address] [place] [address] Amy Mejia ANP [address] [place] [address] documented as of this encounter Visit Diagnoses Not on filedocumented in this encounter Additional Health Concerns Assessment Noted Time PHQ-9 Depression Total Score: 5 02/26/20 23 1:11 PM EDT documented as of this encounter Care Teams Teacher Emotionally Impaired Relationship Specialty Start Date End Date Amy Mejia ANP [address] [place] [address] PCP - General Family Medicine 02/01/23 Marianna Mcgovern Fur Polisher 02/03/24 documented as of this encounter
--- OUTSIDE RECORDS SUMMARY | 2024-10-24 18:48 | XMS_ITS | Encounter Summary ---
Author Organization [employer] Address [address] [facility] [address] [place] [address] Care Team Providers Care Pattern Vault Clerk Name Role Phone Amy Mejia Primary Care Provider [phone] Encounter Details Date Type Department Care Team ([facility] st Contact Info) Description 10/24/2024 Telephone [facility] MEDICINE [address] [place] [address] Amy Mejia ANP [address] [place] [address] Social History Tobacco Use Types Packs/Day Years Used Date Smoking Tobacco: Some Days Cigarettes Passive Smoke Exposure: Never Smokeless Tobacco: Never Alcohol Use Standard Drinks/Week Comments Not Currently 0 (1 standard drink = 0.6 oz pur e alcohol) occasionally Depression Answer Date Recorded Patient Health Questionnaire-9 Score 18 10/05/2024 Patient Health Questionnaire-9 Score 18 10/05/2024 Last PHQ-9: Questionnaire Data Not on file 0 10/05/2024 Housing Stability Answer Date Recorded What is your housing situation today? I do not have housing (Staying with others, in a hotel, in a halfway, living outside on the street, on a [...] things needed for daily living? No 03/23/2024 Intimate Partner Violence Answer Date R ecorded Within the last year, have y ou been afraid of your partner or ex-partner? 2 10/05/2024 Within the last year, have y ou been humiliated or emotionally abused in other ways by your partner or ex-partner? 2 Within the last year, have y ou been kicked, hit, slapped, or otherwise physically hurt by your partner or ex-partner? 2 10/05/2024 Within the last year, have y ou been raped or forced to have any kind of sexual activity by your partner or ex-partner? 2 10/05/2024 Utilities Answer Date Recorded In the past 12 months, has t he [employer], gas, oil or water company threatened to shut off services in your home? Already shut Off 03/23/2024 Depression Answer Date Recorded Patient Health Questionnaire-2 Score 6 10/05/2024 Internet Access Answer Date Recorded Internet Access [...] Telephone Encounter - Rufina Salazar LPN - 10/24/2024 9:37 AM EDT Triage call returned to patient per Protal message. Patient concerned with frequency of menses. No heavy bleeding but that duration in between is frequent. Reports that she feels this started before control but is unsure. Reports many months of frequent menses. No complaints of pain. Disposition reviewed and patient in agreement with plan. ASK/Marixa ANAYA today at 345pm . Protocol Used: Vaginal Bleeding - Abnormal (Adult) Protocol-Based Disposition: See in Office or Video Visit Today Video visit not offered Positive Triage Question: * Patient wants to be seen * All higher-acuity triage questions were negative Care Advice Discussed: * Reasons To Call Back - Bleeding becomes worse - You become worse documented in this encounter Plan of Treatment Upcoming Encounters Date Type Department Care Team (Late st Contact Info) Description 01/05/2025 9:30 AM EDT Office Visit [facility] MEDICINE [address] [place] [address] Amy Mejia ANP [address] [place] [address] documented as of this encounter Visit Diagnoses Not on filedocumented in this encounter Additional Health Concerns Assessment Noted Time PHQ-9 Depression Total Score: 18 025 12:10 PM EDT documented as of this encounter Care Teams Pattern Vault Clerk Relationship Specialty Start Date End Date Amy Mejia ANP [address] [place] [address] PCP - General Family Medicine 02/01/23 Marianna Mcgovern Pbx Teacher 02/03/24 documented as of this encounter
--- OUTSIDE RECORDS SUMMARY | 2024-10-24 18:48 | XMS_ITS | Encounter Summary ---
Author Organization [employer] Address [address] [facility] 7t [place] [address] Care Team Providers Care Dye Range Feeder Name Role Phone Amy Mejia Primary Care Provider [phone] Encounter Details Date Type Department Care Team (Latest Contact Info) Description 10/24/2024 Travel Social History Tobacco Use Types Packs/Day Years [...] with others, in a hotel, in a half-way, living outside on the street, on a [...] the past 12 months, has t he [employer], gas, oil or water company threatened to [...] Description 01/05/2025 9:30 AM EDT Office Visit [facility] MEDICINE [address] [place] [address] Amy Mejia ANP [address] [place] [address] documented as of this encounter Visit Diagnoses Not on filedocumented in this encounter Additional Health Concerns Assessment Noted Time PHQ-9 Depression Total Score: 18 025 12:10 PM EDT documented as of this encounter Care Teams Dye Range Feeder Relationship Specialty Start Date End Date Amy Mejia ANP [address] [place] [address] PCP - General Family Medicine 02/01/23 Marianna Mcgovern Eeler 02/03/24 documented as of this encounter
--- OUTSIDE RECORDS SUMMARY | 2024-10-24 18:48 | XMS_ITS | Encounter Summary ---
Author Organization [employer] Address [address] [facility] [address] [place] [address] Care Team Providers Care White Sugar Supervisor Name Role Phone Amy Mejia Primary Care Provider [phone] Reason for Visit * Reason Onset Date Comments Prior Auth Prescription 10/20/2024 Wegovy Encounter Details Date Type Department Care Team ([facility] Contact Info) Description 10/20/2024 Telephone [facility] MEDICINE [address] [place] [address] Amy Mejia ANP [address] [place] [address] Prior Auth Prescription (Weg[employer]) Social History Tobacco Use Types Packs/Day Years [...] the past 12 months, has t he [employer], gas, oil or water [place] threatened to shut off services in your [...] encounter Miscellaneous Notes * Telephone Encounter - Liz Garcia - 10/24/2024 10:19 AM EDT MYCHAL Stanley signed and faxed to [employer]. Confirmation received and sent to scan. If patient calls to check status on above, please advise them to contact Pharmacy . * Telephone Encounter - Liz Garcia - 10/20/2024 8:25 AM EDT PA for [employer]ep[employer] from [employer] generated and placed on PCP desk for signature. * Telephone Encounter - Liz Garcia - 10/20/2024 8:25 AM EDT ----- Message from Amy Mejia sent at 10/19/2024 11:34 AM EDT ----- Please pursue PA for Lizeth. Patient with severe gastrointestinal side effects to Zepbound documented in this encounter Plan of Treatment Upcoming Encounters Date Type Department Care Team (Late st Contact Info) Description 01/05/2025 9:30 AM EDT Office Visit [facility] MEDICINE [address] [place] [id number] Amy Mejia ANP [address] [place] [address] documented as of this encounter Visit Diagnoses Not on filedocumented in this encounter Additional Health Concerns Assessment Noted Time PHQ-9 Depression Total Score: 18 025 12:10 PM EDT documented as of this encounter Care Teams White Sugar Supervisor Relationship Specialty Start Date End Date Amy Mejia ANP [address] [place] [id number] PCP - General Family Medicine 02/01/23 Marianna Mcgovern Medical Art Therapist 02/03/24 documented as of this encounter
--- OUTSIDE RECORDS SUMMARY | 2024-10-24 18:48 | XMS_ITS | Clinical Summary ---
Author Organization [employer] Address [address] [place] [address] Care Team Providers Care Header Set Up Operator Name Role Phone Alexander Whitaker Primary Care Provider [phone] Allergies Active Allergy Reactions Criticality Noted Date Comments Pineapple 02/25/2023 itching and swelling Wound Dressing Adhesive 02/25/2023 Medical tape, localized reaction Medications * This document contains information received from the source organization and may not represent a complete record from that organization. Ventolin HFA 108 (90 Base) MCG/ACT inhalerIndicati ons:Wheezing INHALE 2 PUFFS BY MOUTH EVERY 6 HOURS IF NEEDED FOR WHEEZING 18 g 2 07/06/20 24 Active norethindrone (Micronor) 0.35 MG tablet Take 1 tablet (0.35 mg) by mouth Once per day. 28 tablet 11 08/07/19 25 026 Active pantoprazole (Protonix) 40 MG EC tabletIndicatio ns:Gastroesopha geal reflux disease, unspecified whether esophagitis present Take 1 daily in AM and 1 in PM if needed; Do not crush, chew, or split. 180 tablet 1 08/10/19 25 Active meloxicam (Mobic) 7.5 MG tabletIndicatio ns:Acute pain of left shoulder Take 1 tablet (7.5 mg) by mouth Once per day. As needed for pain 90 tablet 1 10/06/19 25 026 Active Blood Pressure kitIndications: Elevated blood pressure reading without diagnosis of hypertension 1 each 2 times daily. 1 kit 10/06/19 25 026 Active Semaglutide-David ght Management (Wegovy) 0.25 MG/0.5ML solution auto-injectorIn dications:Class 2 obesity with body mass index (BMI) of 38.0 to 38.9 in adult, unspecified obesity type, unspecified whether serious comorbidity present 0.25mg once weekly subcutaneously 2 mL 10/20/19 25 Active sertraline (Zoloft) 50 MG tablet 100 mg. 03/16/20 24 025 Discontinu ed(Ineffec tive) ibuprofen 600 MG tabletIndicatio ns:Acute pain of both knees Take 1 tablet (600 mg) by mouth every 8 (eight) hours if needed for moderate pain or fever. 90 tablet 08/10/19 25 025 Tirzepatide-David ght Management (Zepbound) 2.5 MG/0.5ML solution auto-injectorIn dications:Class 2 obesity with body mass index (BMI) of 37.0 to 37.9 in adult, unspecified obesity type, unspecified whether serious comorbidity present Inject 0.5 mL (2.5 mg) under the skin 1 (one) time per week. 2 mL 08/16/19 25 025 Discontinu ed(Side effects) Active Problems Problem Noted Date Diagnosed Date Class 2 obesity with body ma ss index (BMI) of 39.0 to 39.9 in adult 10/05/2024 High liver transaminase level 06/16/2024 Assessment & Plan (06/16/2024 9:47 AM EST): Unclear if related to Concerta vs Fatty Liver and changes (Pt developed Cholestasis) Last LFTs seem to be stable and Albumin is WNL. Discussed re weight reduction options including exercise, life style modifications, diet and referral to security systems specialist. Recommended to decrease soda and sugary [...] reassess its effectiveness Weight gain 02/03/2024 Overview (10/05/2024): Suspected r/t Abilify which was since stopped. Encouraging exercise, dietary changes. Then, after diet and exercise were not successful in weight loss GLP-1 was prescribed. Assessment & Plan (02/03/2024 11:37 AM EDT): [...] side effects (blurred vision). She's connected with [employer]Director Of Learning, Berenice Lua and reports she has an [...] Health Integration Plan Internal Follow up with [facility] Patient Self Plan Patient to utilize skills provided in intervention , Patient to reach out to [facility] as needed, Patient to engage in OP therapy , and Patient to reach out to [facility] as needed. Patient is currently engage with [facility] for OP therapy. Assessment & Plan (02/04/2024 7:27 PM EDT): -depressive symptoms improved with Abilify, but patient is experiencing side effects, will try treatment for ADHD first, then reassess symptoms and treat mood disorder Healthcare maintenance 02/25/2023 Astigmatism of both eyes 02/25/2023 Mood disorder 09/24/2017 Overview (10/05/2024): Was following w/ international exchange coordinator Jose Gibbs and counselor at [facility]. Is trying to relocate psych services to here. For reference for mental health: ADHD: Concerta was ineffective and yielded increased tremor, did not try Wellbutrin or Adderall for this reason For depression: Sertraline I think also ineffective (not currently taking, last prescribed I believe April 2024) Fluoxetine worsened symptoms in past Abilify improved post- depressive symptoms but did not impact anxiety and caused significant weight gain and transaminitis and also toe twitching and insomnia Assessment & Plan (03/06/2024 9:31 AM EDT): [...] side effects (blurred vision). She's connected with [employer]Director Of Learning, Berenice Lua and reports she has an [...] Health Integration Plan Internal Follow up with [facility] Patient Self Plan Patient to utilize skills provided in intervention , Patient to reach out to [facility] team as needed, Patient to engage in OP therapy , and Patient to reach out to [facility] as needed. Patient is currently engage with [facility] for OP therapy. Assessment & Plan [...] organization. Date Type Department Care Team Description 10/24/2024 3:45 PM EDT Office Visit [facility] MEDICINE [address] [place] [phone] Jessie Patel CNM Abnormal uterine bleeding (Primary Dx) 10/24/2024 Travel 10/24/2024 Telephone [facility] [address] [place] [address] Alexander Whitaker ANP 10/20/2024 Telephone [facility] [address] [place] [address] Alexander Whitaker ANP Prior Auth Prescription (Wegovy) 10/19/2024 11:00 AM EDT Office Visit [facility] [address] [place] [address] Alexander Whitaker ANP Class 2 obesity with body mass index (BMI) of 38.0 to 38.9 in adult, unspecified obesity type, unspecified whether serious comorbidity present (Primary Dx) 10/19/2024 Travel 10/18/2024 Telephone [facility] [address] [place] [address] Alexander Whitaker ANP Nurse Triage 10/13/2024 2:30 PM EDT Office Visit [facility] OPTOMETRY [address] [place] [address] Sami, Lashon, OD Accommodative insufficiency (Primary Dx); Regular astigmatism of both eyes 10/13/2024 Travel 10/06/2024 Population [facility] Risk Score [facility] () [address] [phone] Provider, Population Health Generic 10/05/2024 11:30 AM EDT Office Visit [facility] [address] [place] [address] Alexander Whitaker ANP Acute pain of left shoulder (Primary Dx); Left hand weakness; Radicular pain in left arm; Class 2 obesity with body mass index (BMI) of 39.0 to 39.9 in adult, unspecified obesity type, unspecified whether serious comorbidity present; Dietary counseling; Exercise counseling; Elevated blood pressure reading without diagnosis of hypertension; Mood disorder ([facility]) 10/05/2024 Travel 10/03/2024 Telephone [facility] MED & PEDS [address] [place], [place] [phone] Alexander Whitaker ANP chartprep 10/02/[address] [address] Alexander Whitaker ANP Care Management ([facility] TC #3-lvm) 09/28/[address] [phone] Alexander Whitaker ANP ER Follow-up 09/27/2024 Orders Only GENERIC EXTERNAL DATA DEPARTMENT Provider, Generic External Data 09/27/[address] [address] Alexander Whitaker ANP Nurse Triage 09/21/[address] [address] Alexander Whitaker ANP Prior Authorization (Zepbound) 09/18/2024 Orders Only [address] [address] Jessie Patel CNM Elevated TSH (Primary Dx) 09/14/2024 Orders Only [address] [address] Jessie Patel CNM 09/07/2024 9:00 AM EST [facility] [address] [address] Merlyn Kyle MD Missed period (Primary Dx) 09/07/2024 Orders Only [address] [address] Jessie Patel CNM Missed period (Primary Dx); Hot flashes 09/04/[address] [address] Marianna Mcgovern Care Management ([facility] TC #2-lvm) 08/22/2024 6:20 PM EST [facility] [address] [address] Flavia Reid MD RSV (acute bronchiolitis due to respiratory syncytial virus) (Primary Dx) 08/17/[address] [address] Marcela Segura, rail operator 08/16/[address] [address] Janessa Merida RN 08/10/2024 11:00 AM EST Office Visit [address] [address] Alexander Whitaker ANP Gallbladder polyp (Primary Dx); Transaminitis; Acute pain of both knees; Gastroesophageal reflux disease, unspecified whether esophagitis present; Class 2 obesity with body mass index (BMI) of 37.0 to 37.9 in adult, unspecified obesity type, unspecified whether serious comorbidity present 08/10/2024 Travel 08/09/2024 Telephone [facility] [address] [place], [place] [phone] Janessa Merida RN 08/09/2024 Telephone [facility] [address] [place], [place] [phone] Rolanda Soria MA chart prep 08/07/2024 11:30 AM EST Office Visit [facility] [address] [place], [place] [phone] Jessie Patel CNM Surveillance of previously prescribed contraceptive pill (Primary Dx) 08/07/2024 Travel 08/04/2024 Telephone [facility] [address] [place], [place] [phone] Marianna Mcgovern Care Management ([facility] TC #1-lvm) from Last 3 Months Immunizations Name Administration [...] Smoke Exposure: Never Smokeless Tobacco: Never Tobacco Cessation:Ready to Q uit: Not Asked; Counseling Given: Not Answered Alcohol Use Standard Drinks/Week [...] with others, in a hotel, in a longterm, living outside on the street, on a [...] Sign Reading Time Taken Comments Blood Pressure 121/79 10/24/2024 3:48 PM EDT Pulse 105 10/24/2024 3:48 PM EDT Temperature 36.3 ??C (97.4 ??F) 10/24/2024 3:48 PM ED T Respiratory Rate 20 10/24/2024 3:48 PM EDT Oxygen Saturation 98% 10/24/2024 3:48 PM EDT Inhaled Oxygen Concentration - - Weight 96.9 kg (213 lb 9.6 oz) 10/24/2024 3:48 P M EDT Height 162.6 cm (5' 4 ) 10/24/2024 3:48 PM EDT Body Mass Index 36.66 10/24/2024 3:48 PM EDT Plan of Treatment Upcoming Encounters Date Type Department Care Team (Late st Contact Info) Description 01/05/2025 9:30 AM EDT Office Visit [facility] [address] [place] [address] Alexander Whitaker ANP [address] [place] [address] Health Maintenance Due Date Last Done Comments HIV Screening 2001 Pneumococcal Vaccine: Pediatrics (0 to 5 Years) and At-Risk Patients (6 to 49) Years) (1 of 1 - PPSV23) 2007 08/28/2004, 05/16/2002, 03/21/2002, Additional history exists Hepatitis A Vaccines (2 of 2 - Risk 2-dose series) 03/27/2018 09/24/2017, 09/24/2017 Hepatitis C Screening 2019 COVID-19 Vaccine ( season) 2024 08/25/2021, 01/09/2021, 12/19/2020 Influenza Vaccine (#1) 2024 08/25/2021, 2021 SDOH Screening 03/23/2025 03/23/2024 Depression Monitoring (PHQ-9) 04/07/2025 10/05/2024, 10/05/2024 Chlamydia and Gonorrhea Screening 05/30/2025 05/30/2024, 05/02/2024 Family Planning (PISQ) 08/07/2025 08/07/2024 Alcohol/Substance Use Screening 08/10/2025 08/10/2024 Pap Smear 09/09/2025 09/09/2022 Depression Screening 10/05/2025 10/05/2024, 12/08/19 Tobacco Screening 10/24/2025 10/24/2024 Lipid Panel 06/12/2029 06/12/2024, 07/07/2023, 12/10/2021, Additional history exists DTaP/Tdap/Td Vaccines (10 - Td or Tdap) 10/13/2033 10/14/2023, 01/15/2023, 07/29/2018, Additional history exists Zoster Vaccines (1 of 2) 2051 RSV Patients and Patients Aged 60 years or older (1 - 1-dose 75+ series) 2076 Hepatitis B Vaccines Completed 02/03/2002, 2001, 2001 HIB Vaccines Completed 08/07/2002, 02/24, 02/03/2002, Additional history exists IPV Vaccines Completed 09/23/2015, [...] Associated Diagnosis Comments POCT , URINE Routine 10/24/2024 4:02 PM EDT Abnormal uterine bleeding POCT HEMOGLOBIN Routine 10/24/2024 3:49 PM EDT Abnormal uterine bleeding MR CERVICAL SPINE WO CONTRAST Routine 10/14/2024 8:31 AM EDT Acute pain of left shoulder Left hand weakness Radicular pain in left arm XR SHOULDER 2+ VIEWS LEFT Routine 09/27/2024 [...] AM EST Acute pain of both knees LIPID PANEL, STANDARD Routine 06/12/2024 9:40 AM EST Elevated cholesterol CHLAMYDIA/N. GONORRHOEAE RNA, TMA, UROGENITAL Routine 05/30/2024 3:36 PM EST PAP SMEAR Routine 09/09/2022 12:00 AM EST from Last 3 Months or Most Recently Relevant to Health Maintenance Results * POCT , urine manually resulted (10/24/2024 4:02 PM EDT) Only the most recent of2 resultswithin the time period is included. Preg Test, Ur Negative Negative, Indeterminate, None Detected, Invalid, Specimen unsatisfactory for evaluation, Weakly Positive QC Media Lot # [id number] Lot# Expiration Date [id number] Urine 10/24/2024 4:02 PM EDT Jessie Patel CNM POINT OF CARE TEST ENTER/ EDIT ORDERABLES Final Result * POCT hemoglobin docked device (10/24/2024 3:49 PM EDT) Hemoglobin 14.0 12.0 - 15.0 QC Media Lot # [id number] Lot# Expiration Date [id number] Blood 10/24/2024 3:49 PM EDT us Jessie Patel CNM POINT OF CARE TEST ENTER/ EDIT ORDERABLES Final Result * MR Cervical Spine w/o Contrast (10/14/2024 8:31 AM EDT) Anatomical Region Laterality Modality Spine, C-spine Magnetic Resonan ce 10/14/2024 8:31 AM EDT Narrative 10/17/2024 7:27 AM EDT ? [facility] ?[address] ?[place] [address] ? Magnetic Resonance Report ? Signed ? Patient: Frazier,Breena ?MR#: [id number] ? : 2000 ?Acct:[id number] ? Age/Sex: 24 / F ?ADM Date: 10/14/24 ? Loc: HO.MRI ? Attending Dr: Alexander Whitaker NP ? Ordering Physician: ALEXANDER WHITAKER NP ?? Date of Service: 10/14/24 ?? Procedure(s): MR cervical spine wo con ?? Accession Number(s): [id number] ? cc: ALEXANDER WHITAKER NP ? EXAMINATION: ?? MR CERVICAL SPINE WITHOUT CONTRAST ? CLINICAL INFORMATION: ?? Numbness and tingling, left upper extremity ? COMPARISON: ?? None available. ? TECHNIQUE: ?? MRI of the cervical spine was obtained using routine sequences without ?? contrast. ? FINDINGS: ?? Craniocervical junction is intact. ?? No bone marrow STIR signal abnormality. ?? The alignment is normal. ?? Cervical spinal cord caliber and signal are normal. ? C2-3: ?? Normal. ? C3-4: ?? Normal. ? C4-5: ?? Normal. ? C5-6: ?? Normal. ? C6-7: ?? Normal. ? C7-T1: ?? Normal. ? No prevertebral compartment hematoma, mass or fluid collection. ?? Flow-void signal within the main vessels is normal. Right vertebral ?? artery is slightly dominant. ? MR/MR cervical spine wo con ?? IMPRESSION: ?? No acute fracture or listhesis. ?? No cord compression, cord edema and or myelopathy. ?? Normal exam. ? Electronically signed by: ??Canelo Rogers MD ??10/17/2024 07:24 AM ?? EDT RP ? Dictated By: ?Canelo Garcia MD ? Signed By: ?<Electronically signed by Canelo Segura MD in OV> ? 10/17/24723 ? DD/ 0 ? TD/TT: 10/14/24 0905 ? Bottom Ironer: ? Procedure Note Donotcarlyleinterpreter, Image - 10/17/2024 [place] [address] Magnetic Resonance Report Signed Patient: Harjeet FrazierMR#: [id number] : 2000Acct:[id number] Age/Sex: 24 FADM Date: 10/14/24 Loc: HO.MRI Attending Dr: Alexander Whitaker NP Ordering Physician: ALEXANDER WHITAKER NP Date of Service: 10/14/24 Procedure(s): MR cervical spine wo con Accession Number(s): [id number] cc: ALEXANDER WHITAKER NP EXAMINATION: MR CERVICAL SPINE WITHOUT CONTRAST CLINICAL INFORMATION: Numbness and tingling, left upper extremity COMPARISON: None available. TECHNIQUE: MRI of the cervical spine was obtained using routine sequences without contrast. FINDINGS: Craniocervical junction is intact. No bone marrow STIR signal abnormality. The alignment is normal. Cervical spinal cord caliber and signal are normal. C2-3: Normal. C3-4: Normal. C4-5: Normal. C5-6: Normal. C6-7: Normal. C7-T1: Normal. No prevertebral compartment hematoma, mass or fluid collection. Flow-void signal within the main vessels is normal. Right vertebral artery is slightly dominant. MR/MR cervical spine wo con IMPRESSION: No acute fracture or listhesis. No cord compression, cord edema and or myelopathy. Normal exam. Electronically signed by: Canelo Rogers MD 10/17/2024 07:24 AM EDT Dictated By: Canelo Garcia MD Signed By: <Electronically signed by Canelo Segura MDin OV> 10/17/24 0724 DD/ 0831 TD/TT: 10/14/24904 Bottom Ironer: us Reyes Roberto GARCIA IMLibby MRI PROCEDURES Edited Result - Final * XR Shoulder 2+ Views Left (09/27/2024 7:40 PM EST) Anatomical Region Laterality Modality Upper Extremities, Shoulder Left Radi ographic Imaging 09/27/2024 7:40 PM EST Narrative 09/27/2024 7:41 PM EST ? [facility] ?[address] ?[place] [address] ?XRay Report ? Signed ? Patient: Frazier,Breena ?MR#: [id number] ? : 2000 ?Acct:[id number] ? Age/Sex: 24 / F ?ADM Date: 09/27/24 ? Loc: HO.ED ? Attending Dr: ? Ordering Physician: Vivian Vargas ?? Date of Service: 09/27/24 ?? Procedure(s): XR shoulder LT min 2V ?? Accession Number(s): [id number] ? cc: Vivian Vargas; ALEXANDER WHITAKER NP [...] ? DD/ 39 ? TD/TT: 09/27/241939 ? Bottom Ironer: ? Procedure Note Dominga Alejandre - 09/27/[address] [address] XRay Report Signed Patient: Harjeet FrazierMR#: [id number] : 2000Acct:[id number] Age/Sex: 24 / FADM Date: 09/27/24 Loc: HO.ED Attending Dr: Ordering Physician: Vivian Vargas Date of Service: 09/27/24 Procedure(s): XR shoulder LT min 2V Accession Number(s): [id number] cc: Vivian Vargas; ALEXANDER WHITAKER NP CLINICAL [...] in OV> 09/27/241940 DD/ 39 TD/TT: 09/27/241939 Bottom Ironer: [facility] External Provider IMG XR PROCEDURES Edited Result - Final * XR Chest 2 Views (09/27/2024 7:38 PM EST) Anatomical Region Laterality Modality Chest Radiographic Kathy ging 09/27/2024 7:38 PM EST Narrative 09/27/2024 7:39 PM EST ? [facility] ?[address] ?[place] [address] ?XRay Report ? Signed ? Patient: Frazier,Breena ?MR#: [id number] ? : 2000 ?Acct:[id number] ? Age/Sex: 24 / F ?ADM Date: 09/27/24 ? Loc: HO.ED ? Attending Dr: ? Ordering Physician: Vivian Vargas ?? Date of Service: 09/27/24 ?? Procedure(s): XR chest 2V ?? Accession Number(s): [id number] ? cc: Vivian Vargas; ALEXANDER WHITAKER NP [...] ?? 09/27/2024 19:38:21 ? Dictated By: ?Drake Caalbrese MD ? Signed By: ?<Electronically signed by Drake Calabrese MD in OV> ? 09/27/241938 ? DD/ 37 ? TD/TT: 09/27/241937 ? Bottom Ironer: ? Procedure Note Dondianater, Image - 09/27/[address] [address] XRay Report Signed Patient: Harjeet FrazierMR#: [id number] : 2000Acct:[id number] Age/Sex: 24 FADM Date: 09/27/24 Loc: HO.ED Attending Dr: Ordering Physician: Vivian Vargas Date of Service: 09/27/24 Procedure(s): XR chest 2V Accession Number(s): [id number] cc: Vivian Vargas; ALEXANDER WHITAKER NP CLINICAL [...] in OV> 09/27/241938 DD/ 37 TD/TT: 09/27/241937 Bottom Ironer: [facility] External Provider IMG XR PROCEDURES Edited Result - Final * CBC auto differential (09/27/2024 7:13 PM EST) White Blood Count 10.8 4.8 - 10.8 X10*3/uL [facility] Red Blood Count 4.53 4.20 - 5.50 X10*6/uL [facility] Hemoglobin 12.7 12.0 - 16.0 g/dl [facility] Hematocrit 37.4 37.0 - 47.0 % [facility] Mean Corpuscular Volume 82.6 80.0 - 98.0 fL [facility] Mean Corpuscular Hemoglobin 28.0 27.0 - 33.0 pg [facility] Mean Corpuscular HGB Conc 34.0 31.0 - 35.0 g/dl [facility] Red Cell Distribution Width 12.8 11.0 - 16.0 % [facility] Platelet Count 282 160 - 400 X10*3/uL [facility] Mean Platelet Volume 11.5 9.4 - 12.3 fL [facility] Neutrophils Percent Auto 55.2 45 - 73 % [facility] Imm Gran Pct Auto 0.3 0.0 - 0.4 % [facility] Lymphocytes Percent Auto 35.3 20 - 40 % [facility] Monocytes Percent Auto 6.8 2 - 11 % [facility] Eosinophils Percent Auto 1.9 0 - 4 % [facility] Basophils Percent Auto 0.5 0 - 2 % [facility] NRBC Pct Auto 0.0 0.0 - 0.2 /100WBC [facility] Neutrophils Absolute Auto 6.0 2.0 - 8.3 x10*3/uL [facility] Imm Gran Abs Auto 0.03 0.00 - 0.03 X10*3/uL [facility] Lymphocytes Absolute Auto 3.8 1.2 - 4.9 X10*3/uL [facility] Monocytes Absolute Auto 0.7 0.1 - 1.2 X10*3/uL [facility] Eosinophils Absolute Auto 0.2 0.0 - 0.4 X10*3/uL [facility] Basophils Absolute Auto 0.1 0.0 - 0.2 X10*3/uL [facility] NRBC Abs Auto 0.000 0.0 - 0.012 X10*3/uL [facility] 09/27/2024 7:13 PM EST 09/27/2024 7:16 PM EST us Generic External Data Provider LAB BLOOD ORDERAB LES Final Result Performing Organization Address City/[facility] Co de Phone Number [facility] [address] [place] [phone] * High Sensitivity Troponin I (09/27/2024 7:12 PM EST) TROPONIN I HIGH SENSITIVITY <2.7 <3.5 - 17.0 ng/L [facility] Comment:The [employer] high sens itivity Troponin-I results should beused in conjunction with other diagnostic information suchas ECG, clinical observations and information, and patientsymptoms to aid in the diagnosis of [place]. 09/27/2024 7:12 PM EST 09/27/2024 7:16 PM EST us Generic External Data Provider LAB BLOOD ORDERAB LES Final Result Performing Organization Address [facility] Co de Phone Number [facility] [address] [place] [phone] * SARS-CoV-2 RNA, Influenza A/B, and RSV RNA, Ql NAAT (09/27/2024 7:12 PM EST) Pathologist [facility] Influenza A PCR NEGATIVE Negative [facility] Influenza B PCR NEGATIVE Negative [facility] Resp Syncy Virus RNA Qual PCR NEGATIVE Negative [facility] SARS COV2 PCR NEGATIVE Negative [facility] Comment:All test results mus t [...] use by authorized laboratories.Testing performed on the [employer] GeneXpert utilizingreal-time RT-PCR.All SARS CoV2 and positive influenza A/B results arereported to [facility]. 09/27/2024 7:12 PM EST 09/27/2024 7:16 PM EST us Generic External Data Provider LAB MICROBIOLOGY - GENERAL ORDERABLES Final Result Performing Organization Address City/[facility]/ZIP Co de Phone Number [facility] [address] [place] [phone] * (ABNORMAL) Prothrombin Time-INR (09/27/2024 7:12 PM EST) Prothrombin Time 10.6(L) 10.9 - 12.4 SEC [facility] INTERNATIONAL NORM RATIO 0.9 0.9 - 1.1 [facility] Comment:INTERNATIONAL NORMAL IZED RATIO (INR) [...] ORDERAB LES Final Result Performing Organization Address [facility] Co de Phone Number [facility] [address] [place] [phone] * Magnesium (09/27/2024 7:12 PM EST) Pathologist [facility] Magnesium 2.0 1.6 - 2.6 mg/dL [facility] 09/27/2024 7:12 PM EST 09/27/2024 7:16 PM EST us Generic External Data Provider LAB BLOOD ORDERAB LES Final Result Performing Organization Address [facility] Co de Phone Number [facility] [address] [place] [phone] * (ABNORMAL) Hepatic Function Panel (09/27/2024 7:12 PM EST) Bilirubin, Total 0.2 0.0 - 1.0 mg/dL [facility] Bilirubin, Direct <0.2 0.0 - 0.5 mg/dL [facility] Aspartate Amino Transferase 32(H) 5 - 31 U/L [facility] Alanine Aminotransferase 50(H) 0 - 31 U/L [facility] Total Protein 7.9 6.5 - 8.0 g/dL [facility] Albumin Level 4.1 3.5 - 5.0 g/dL [facility] Alkaline Phosphatase 104 39 - 117 U/L [facility] 09/27/2024 7:12 PM EST 09/27/2024 7:16 PM EST us Generic External Data Provider LAB BLOOD ORDERAB LES Final Result Performing Organization Address City/State/[facility] Co de Phone Number [facility] [address] [place] [address] [phone] * (ABNORMAL) Basic Metabolic Panel (09/27/2024 7:12 PM EST) Pathologist [facility] Sodium 141 135 - 145 mmol/L [facility] Potassium 3.7 3.3 - 5.1 mmol/L [facility] Chloride 111(H) 96 - 108 mmol/L [facility] Carbon Dioxide 23 22 - 29 mmol/L [facility] Anion Gap 11(L) 12 - 20 [facility] Urea Nitrogen (BUN) 11 9 - 16 mg/dL [facility] Creatinine, Serum 0.65 0.5 - 1.4 mg/dL [facility] Creatinine Clr Calc Pharmacy 153.9 [facility] Comment:Provided height and weight: 162.56 cm,99 kg.eGFR (calculated from the MDRD study equation) and eCrCl(calculated from the Cockcroft-Gault equation) are based ondifferent parameters and may not yield comparable results.If eCrCl result is absurd, please check patient'sheight/weight. Estimated Glomerular Filt Rate >60 [facility] Comment:Chronic Kidney Disea se: Estimated GFR < 60 mL/min/1.01b1Eeylbk Kidney Disease: Estimated GFR < 15 mL/min/1.73m2 Glucose 90 60 - 115 mg/dL [facility] Calcium 9.2 8.4 - 10.2 mg/dL [facility] 09/27/2024 7:12 PM EST 09/27/2024 7:16 PM EST Generic External Data Provider LAB BLOOD ORDERAB LES Final Result Performing Organization Address [facility] Co de Phone Number [facility] [address] [place] [phone] * (ABNORMAL) TSH W/Reflex to FT4 (09/14/2024 9:13 AM EST) TSH reflex Free T4 4.01(H) 0.32 - 4.0 uIU/mL [facility] Blood Venous blood specimen / Unknown 09/14/2024 9:13 AM EST 09/14/2024 11:36 AM EST Jessie Patel [facility] LAB BLOOD ORDERABLES Greer l Result Performing Organization Address [facility] Co de Phone Number [facility] [address] [place] [phone] * T4, Free (09/14/2024 9:13 AM EST) Free T4 (Free Thyroxine) 0.98 0.71 - 1.85 ng/dL [facility] 09/14/2024 9:13 AM EST 09/14/2024 11:36 AM EST Jessie Patel [facility] LAB BLOOD ORDERABLES Greer l Result Performing Organization Address [facility] Co de Phone Number [facility] [address] [place] [phone] * Drug Monitoring, Panel 1, Screen, Urine (09/14/2024 9:12 AM EST) Opiate Screen Urine Not Detected Not Detect [facility] Comment:Opiate cut-off is 30 0 ng/mL.Positive results are unconfirmed and should not be used fornon-medical purposes. Barbiturates, Urine Not Detected Not Detect [facility] Comment:Barbiturate cut-off is 200 ng/mL.Positive results are unconfirmed and should not be used fornon-medical purposes. Phencyclidine Screen Urine Not Detected Not Detect [facility] Comment:Phencyclidine cut-of f is 25 ng/mL.Positive results are unconfirmed and should not be used fornon-medical purposes. Amphetamine Screen Urine Not Detected Not Detect [facility] Comment:Amphetamine cut-off is 1000 ng/mL.Positive results are unconfirmed and should not be used fornon-medical purposes. Benzodiazepines Screen Urine Not Detected Not Detect [facility] Comment:Benzodiazepine cut-o ff is 200 ng/mL.Positive results are unconfirmed and should not be used fornon-medical purposes. Cocaine Screen Urine Not Detected Not Detect [facility] Comment:Cocaine cut-off is 3 00 ng/mL.Positive results are unconfirmed and should not be used fornon-medical purposes. Cannabinoid Screen Urine Not Detected Not Detect [facility] Comment:Cannabinoid cut-off is 50 ng/mL.Positive results are unconfirmed and should not be used fornon-medical purposes. Methadone Screen, Urine Not Detected Not Detect ng/mL [facility] Comment:Methadone cut-off is 300 ng/mL.Positive results are unconfirmed and should not be used fornon-medical purposes. FENTANYL URINE Not Detected Not Detect [facility] Comment:Fentanyl cut-off is 1 ng/mL.Positive results are unconfirmed and should not be used fornon-medical purposes. Oxycodone Urine Screen Not Detected Not Detect ng/mL [facility] Comment:Oxycodone cut-off is 100 ng/mL.Positive results are unconfirmed and should not be used fornon-medical purposes. Buprenorphine Screen Not Detected Not Detect ng/mL [facility] Comment:Buprenorphine cut-of f is 5 ng/mL.Positive results are unconfirmed and should not be used fornon-medical purposes. Urine (Urine, Random) 09/14/2024 9:12 AM EST 09/14/2024 11:32 AM EST Jorden Balbuenar PMHNP LAB URINE ORDERABLES Final Re sult Performing Organization Address [facility] de Phone Number [facility] [address] [place] [phone] * Prolactin (09/14/2024 8:13 AM EST) Prolactin 7.5 ng/mL [facility] Comment:Reference Range Fema les Non- 3.0-30.0 10.0-209.0 Postmenopausal 2.0-20.0THIS TEST WAS PERFORMED AT:[employer] [address] [phone] LI MD Blood Venous blood specimen / Unknown 09/14/2024 8:13 AM EST 09/14/2024 11:36 AM EST Jessie Patel CN LAB BLOOD ORDERABLES Greer l Result Performing Organization Address [facility] de Phone Number [facility] [address] [place] [phone] * XR Knee 1-2 Views Left (08/12/2024 5:43 AM EST) Anatomical Region Laterality Modality Lower Extremities, Knee Left Radiogra phic Imaging 08/12/2024 5:43 AM EST Narrative 08/12/2024 5:44 AM EST ? [facility] ?[address] ?[place] [address] ?XRay Report ? Signed ? Patient: Frazier,Breena ?MR#: [id number] ? : 2000 ?Acct:[id number] ? Age/Sex: 24 / F ?ADM Date: 01/16/25 ? Loc: HO.XRAY ? Attending Dr: Alexander Whitaker NP ? Ordering Physician: ALEXANDER WHITAKER NP ?? Date of Service: 08/10/24 ?? Procedure(s): XR knee LT 2V ?? Accession Number(s): [id number] ? cc: ALEXANDER WHITAKER NP ? CLINICAL [...] 0544 ? DD/ 0543 ? TD/TT: 08/12/24 05 ? Bottom Ironer: ? Procedure Note Donotuseinterpreter, Image - 08/12/2024 [place] [address] XRay Report Signed Patient: Harjeet FrazierMR#: [id number] : 2000Acct:[id number] Age/Sex: 24 / FADM Date: 08/10/24 Loc: MANOJ Attending Dr: Alexander Whitaker NP Ordering Physician: ALEXANDER WHITAKER NP Date of Service: 08/10/24 Procedure(s): XR knee LT 2V Accession Number(s): [id number] cc: ALEXANDER WHITAKER NP CLINICAL HISTORY: atraumatic [...] Wilson MD in [place]> 08/12/24 0544 DD/ TD/TT: 08/12/24542 Bottom Ironer: Alexander Whitaker ANP IMG XR PROCEDURES Final Result * XR Knee 1-2 Views Right (08/12/2024 5:41 AM EST) Anatomical Region Laterality Modality Lower Extremities, Knee Right Radiogra phic Imaging 08/12/2024 5:41 AM EST Narrative 08/12/2024 5:42 AM EST ? [facility] ?[address] ?[place] [address] ?XRay Report ? Signed ? Patient: Frazier,Breena ?MR#: [id number] ? : 2000 ?Acct:[id number] ? Age/Sex: 24 / F ?ADM Date: 08/10/24 ? Loc: HO.XRAY ? Attending Dr: Alexander Whitaker NP ? Ordering Physician: ALEXANDER WHITAKER NP ?? Date of Service: 08/10/24 ?? Procedure(s): XR knee RT 2V ?? Accession Number(s): [id number] ? cc: ALEXANDER WHITAKER NP ? CLINICAL [...] DD/ 0541 ? TD/TT: 08/12/24 0541 ? Bottom Ironer: ? Procedure Note Hill, Image - 08/12/[address] [address] KEILAay Report Signed Patient: Harjeet FrazierMR#: [id number] : 2000Acct:[id number] Age/Sex: 24 / FADM Date: 08/10/24 Loc: MANOJ Attending Dr: Alexander Whitaker [employer] Ordering Physician: ALEXANDER WHITAKER NP Date of Service: 08/10/24 Procedure(s): XR knee RT 2V Accession Number(s): [id number] cc: ALEXANDER WHITAKER NP CLINICAL HISTORY: atraumatic knee pain 2 view right knee Comparison: None Findings: Bones intact. No dislocations. No significant loss of joint space, osteophytes, or erosions. No joint effusion. No radiopaque foreign body. IMPRESSION: 1. No acute findings. This document has been electronically signed by: Jnaa Wilson MD on 08/12/2024 05:41:13 Dictated By: Jana Wilson MD Signed By: <Electronically signed by Jana Wilson MD in [place]> 08/12/2442 DD/ 0 TD/TT: 08/12/24540 Bottom Ironer: us Alexander Whitaker ANP IMG XR PROCEDURES Final Result * (ABNORMAL) Lipid Panel, Standard (06/12/2024 9:40 AM EST) Triglycerides 98 <150 mg/dL [facility] Comment:Desirable Triglyceri de: less than 150 mg/dLBorderline High Triglyceride 150-199 mg/dLHigh Triglyceride: 200-499 mg/dLVery High Triglyceride: greater than or equal to 5OO mg/dL Cholesterol 155 <200 mg/dL [facility] Comment:Desirable Cholestero l: less than 200 mg/dLBorderline High Cholesterol: 200-239 mg/dLHigh Cholesterol: greater than 239 mg/dL LDL Cholesterol Calculated 105(H) <100 mg/dL [facility] Comment:Desirable LDL: less than 100 mg/dLNear Optimal/Above Optimal LDL: 110- 129 mg/dLBorderline High LDL: 130-159 mg/dLHigh LDL: 160-189 mg/dLVery High LDL: greater than or equal to 190 mg/dL HDL Cholesterol 31(L) >40 mg/dL [facility] Comment:Desirable HDL: great er than 40 mg/dL Note: This HDL assay may give artificially low results in patients with liver disease. Blood Venous blood specimen / Unknown 06/12/2024 9:40 AM EST 06/12/2024 11:32 AM EST us Alexander Whitaker ANP LAB BLOOD ORDERABLES Final Resul t [facility] [address] [place] [phone] * Chlamydia/N. Gonorrhoeae RNA, TMA, Urogenitial (05/30/2024 3:36 PM EST) CT PCR NOT DETECTED Not Detect. [facility] Comment:A not detected test result [...] psychologicalconsequences. NG PCR NOT DETECTED Not Detect. [facility] Comment:A not detected test result [...] PM EST 05/30/2024 3:40 PM EST Narrative [facility] - 05/30/2024 5:19 PM EST Vaginal Generic External Data Provider LAB MICROBIOLOGY - GENERAL ORDERABLES Final Result Performing Organization Address City/[facility]/ZIP Co de Phone Number [facility] [address] [place] [phone] * Pap Smear (09/09/2022 12:00 AM EST) Swab us [facility] LAB CYTOLOGY ORDERABLES Final Re sult Performing Organization Address City/[facility]/ZIP Co de Phone Number [facility] [address] [place] [phone] from Last 3 Months or Most Recently Relevant to Health Maintenance Insurance [employer] Care Teams Header Set Up Operator Relationship Specialty Start Date End Date Alexander Whitaker ANP [address] [place] [address] PCP - General Family Medicine 02/01/23 Marianna Mcgovern Acls Nurse 02/03/24
--- OUTSIDE RECORDS SUMMARY | 2024-10-24 18:48 | XMS_ITS | Encounter Summary ---
Author Organization [employer] Address [address] [facility] 7[address] [place] [address] Care Team Providers Care Export Agent Name Role Phone Amy Mejia Primary Care Provider [phone] Reason for Visit * Reason Comments Gynecologic Exam Encounter Details Date Type Department Care Team ([facility] st Contact Info) Description 10/24/2024 3:45 PM EDT Office Visit [facility] [address] [place], [place] [phone] Jessie Patel CNM [address] [place], [place] [phone] Abnormal uterine bleeding (Primary Dx) Social History Tobacco Use Types [...] the past 12 months, has t he [employer], oil or water [employer] threatened to shut off services in your [...] Mass Index 36.66 10/24/2024 3:48 PM EDT documented in this encounter Progress Notes * Jessie Amanda, JACLYN - 10/24/2024 3:45 PM EDT Subjective Patient ID: Stephanie Frazier is a 24 y.o. 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 Notes frequent light bleeding with NET progestin only pill. NET rx'd 07/2024, switched from Slynd due to side effects. Noted nausea, vomiting, breast tendernessand missed menses as well as increased irritability with Slynd. No missed/late pills. test negative today, normal hemoglobin today. Switching from Zepbound to Wegovy due to GI effects. Last Zepbound injection 5 days ago. Prior to oral contraceptive pill, IUD removed and replaced due to malposition. Seen in ER for AUB, ultrasound showed IUD in good position. New IUD removed due to AUB. TSH 4.01 in 08/2024, repeat testing ordered which needs to be done. She will do this today. Gonorrhea/Chlamydia/trichomonas neg 05/2024. Pap NIL 08/2022 Review of Systems Objective BP 121/79 (BP Location: Left arm, Patient Position: Sitting, BP Cuff Size: Large adult) Pulse 105 Temp 97.4 ??F (36.3 ??C) (Temporal) Resp 20 Ht 5' 4 (1.626 m) Wt 213 lb 9.6 oz (96.9 kg) LMP 10/22/2024 (Approximate) SpO2 98% BMI 36.66 kg/m?? Physical Exam Constitutional: Appearance: Normal appearance. Neurological: Mental Status: She is alert. Psychiatric: Mood and Affect: Mood normal. Behavior: Behavior normal. Assessment/Plan Diagnoses and all orders for this visit: Abnormal uterine bleeding - POCT , urine manually resulted - POCT hemoglobin docked device Reassured, irregular bleeding common with first few months of oral contraceptive pill use. She willcontinue for now. Report heavy/prolonged bleeding or if no improvement in bleeding profile in next month or so. Get TSH today. Advised backup method until 28 days from last Zepbound. Wegovy should not reduce oral contraceptivepill efficacy. documented in this encounter Plan of Treatment Upcoming Encounters Date Type Department Care Team (Late st Contact Info) Description 01/05/2025 9:30 AM EDT Office Visit [facility] [address] [place], [place] [phone] Amy Mejia ANP [address] [place], [place] [phone] documented as of this encounter Procedures Procedure Name Priority Date/Time Associated Diagnosis Comments POCT , URINE Routine 10/24/2024 4:02 PM EDT Abnormal uterine bleeding POCT HEMOGLOBIN Routine 10/24/2024 3:49 PM EDT Abnormal uterine bleeding documented in this encounter Results * POCT , urine manually resulted (10/24/2024 4:02 PM EDT) Preg Test, Ur Negative Negative, Indeterminate, None Detected, Invalid, Specimen unsatisfactory for evaluation, Weakly Positive QC Media Lot # [id number] Lot# Expiration Date [id number] Urine 10/24/2024 4:02 PM EDT Jessie Patel CNM POINT OF CARE TEST ENTER/ EDIT ORDERABLES Final Result * POCT hemoglobin docked device (10/24/2024 3:49 PM EDT) Hemoglobin 14.0 12.0 - 15.0 QC Media Lot # [id number] Lot# Expiration Date [id number] Blood 10/24/2024 3:49 PM EDT Jessie Patel CNM POINT OF CARE TEST ENTER/ EDIT ORDERABLES Final Result documented in this encounter Visit Diagnoses Diagnosis Abnormal uterine bleeding- Primary Unspecified disorder of menstruation and other abnormal bleeding from female genital tract documented in this encounter Additional Health Concerns Assessment Noted Time PHQ-9 Depression Total Score: 18 10/05/ 025 12:10 PM EDT documented as of this encounter Care Teams Export Agent Relationship Specialty Start Date End Date Amy Mejia ANP [address] [place] [address] PCP - General Family Medicine 02/01/23 Marianna Mcgovern Patient Registration Clerk 02/03/24 documented as of this encounter
--- OUTSIDE RECORDS SUMMARY | 2024-10-24 18:48 | XMS_ITS | Encounter Summary ---
Author Organization [employer] Address [address] [facility] 7t [place] [address] Care Team Providers Care Knitter Wire Mesh Name Role Phone Amy Mejia Primary Care Provider [phone] Reason for Visit * Reason Onset Date Comments Medication Question 02/03/2024 Encounter Details Date Type Department Care Team ([facility] st Contact Info) Description 02/03/2024 Telephone [facility] MED[facility]INE [address] [place], [place] [phone] Amy Mejia ANP [address] [place] [address] Medication Question Social History Tobacco Use Types [...] it has been sent. Please contact at [phone] * Telephone Encounter - Radha Sainz - [...] Description 01/05/2025 9:30 AM EDT Office Visit [facility] MED[facility]INE [address] [place] [address] Amy Mejia ANP [address] [place] [address] documented as of this encounter Visit Diagnoses Not on filedocumented in this encounter Additional Health Concerns Assessment Noted Time PHQ-9 Depression Total Score: 8 02/03/20 24 10:56 AM EDT documented as of this encounter Care Teams Knitter Wire Mesh Relationship Specialty Start Date End Date Amy Mejia ANP [address] [place] [address] PCP - General Family Medicine 02/01/23 Marianna Mcgovern Commissioned Fire Officer 02/03/24 documented as of this encounter
--- OUTSIDE RECORDS SUMMARY | 2024-10-24 18:48 | XMS_ITS | Encounter Summary ---
Author Organization [employer] Address [address] [facility] 7t [place] [address] Care Team Providers Care Construction Site Crossing Guard Name Role Phone Amy Mejia Primary Care Provider [phone] Reason for Visit * Reason Comments sick of site Encounter Details Date Type Department Care Team ([facility] st Contact Info) Description 10/19/2024 11:00 AM EDT Office Visit [facility] [address] [place] [address] Amy Mejia ANP [address] [place] [address] Class 2 obesity with body mass index (BMI) of 38.0 to 38.9 in adult, unspecified obesity type, unspecified whether serious comorbidity present (Primary Dx) Social History Tobacco Use Types [...] with others, in a hotel, in a mcc, living outside on the street, on a [...] Sign Reading Time Taken Comments Blood Pressure 133/77 10/19/2024 11:16 AM EDT Pulse 93 10/19/2024 11:16 AM EDT Temperature 36.6 ??C (97.9 ??F) 10/19/2024 11:16 AM E DT Respiratory Rate 14 10/19/2024 11:16 AM EDT Oxygen Saturation 98% 10/19/2024 11:16 AM EDT Inhaled Oxygen Concentration - - Weight 97.8 kg (215 lb 8 oz) 10/19/2024 11:16 AM EDT Height 160 cm (5' 3 ) 10/19/2024 11:16 AM EDT Body Mass Index 38.17 10/19/2024 11:16 AM EDT documented in this encounter Progress Notes * JOSE Tabares - 10/19/2024 11:00 AM EDT Subjective Patient ID: Stephanie Frazier is a 24 y.o. female who presents for sick of site. HPI Here today for sick visit after starting Zepbound injections. Has taken 2 thus far and having intolerable persistent severe nausea as well as gastrointestinal symptoms like diarrhea and gas and pain. She is having improvement with appetite but given the severity of side effects I would like her to stop the Zepbound and we will try to get Wegovy approved as an alternative. BMI Readings from Last 3 Encounters: 10/19/24 38.17 kg/m?? 10/05/24 38.97 kg/m?? 09/07/24 39.01 kg/m?? Wt Readings from Last 3 Encounters: 10/19/24 215 lb 8 oz (97.8 kg) 10/05/24 220 lb (99.8 kg) 09/07/24 220 lb 3.2 oz (99.9 kg) Understands that weight loss medications must be used as part of a comprehensive lifestyle plan that incorporates daily exercise, adequate protein intake, decreased soda and sugary beverage consumption, decreased caloric intake. Smokes cigarettes sometimes. Lives with partner and kids Review of Systems -Fever, chills, blood in stool + Nausea, abdominal pain, gas, vomiting, diarrhea Objective BP 133/77 (BP Location: Right arm, Patient Position: Sitting, BP Cuff Size: Adult long) Pulse 93 Temp 97.9 ??F (36.6 ??C) (Temporal) Resp 14 Ht 5' 3 (1.6 m) Wt 215 lb 8 oz (97.8 kg) SpO2 98% BMI 38.17 kg/m?? Physical Exam Vitals reviewed. Constitutional: General: [...] Diagnoses and all orders for this visit: Class 2 obesity with body mass index (BMI) of 38.0 to 38.9 in adult, unspecified obesity type, unspecified whether serious comorbidity present Recommend: Daily exercise at least 30min, moderate [...] physical activity and has not lost weight. Contraindication to phentermine is mood disorder Unable to tolerate Zepbound due to severe gastrointestinal side effects documented in this encounter Plan of Treatment Upcoming Encounters Date Type Department Care Team (Late st Contact Info) Description 01/05/2025 9:30 AM EDT Office Visit [facility]INE [address] [place] [phone] Amy Mejia ANP [address] [place] [address] documented as of this encounter Visit Diagnoses Diagnosis Class 2 obesity with body mass index (BMI) of 38.0 to 38.9 in adult, unspecified obesity type, unspecified whether serious comorbidity present- Primary documented in this encounter Additional Health Concerns Assessment Noted Time PHQ-9 Depression Total Score: 18 025 12:10 PM EDT documented as of this encounter Care Teams Construction Site Crossing Guard Relationship Specialty Start Date End Date Amy Mejia ANP [address] [place] [phone] PCP - General Family Medicine 02/01/23 Marianna Mcgovern Multi Purpose Machine Operator 02/03/24 documented as of this encounter
--- OUTSIDE RECORDS SUMMARY | 2024-10-24 18:48 | XMS_ITS | Encounter Summary ---
Author Organization [employer] Address [address] [facility] [address]t [place] [address] Care Team Providers Care Weight Clerk Name Role Phone Amy Mejia Primary Care Provider [phone] Reason for Visit * Reason Onset Date Comments Results 05/04/2024 Encounter Details Date Type Department Care Team ([facility] st Contact Info) Description 05/04/2024 Telephone [facility] [address] [place] [address] Amy Mejia ANP [address] [place] [address] Results Social History Tobacco Use Types Packs/Day [...] - thanks! * Telephone Encounter - Nat Dunn RN - 05/04/2024 2:42 PM EDT Telephone call to pt per request from Jessie Patel CNM. Pt requests IUD removal, does not want to go to [facility], and states she wants to try a [...] will need to be removed with a lease examiner. Would you like to have appointment here or would you like me to send you back to [facility]? I got a message from the radiology [...] Description 01/05/2025 9:30 AM EDT Office Visit [facility] [address] [place] [address] Amy Mejia ANP [address] [place] [address] documented as of this encounter Visit Diagnoses Not on filedocumented in this encounter Additional Health Concerns Assessment Noted Time PHQ-9 Depression Total Score: 18 024 2:56 PM EDT documented as of this encounter Care Teams Weight Clerk Relationship Specialty Start Date End Date Amy Mejia ANP [address] [place] [address] PCP - General Family Medicine 02/01/23 Marianna Mcgovern Recreational Therapist 02/03/24 documented as of this encounter
--- OUTSIDE RECORDS SUMMARY | 2024-10-24 18:48 | XMS_ITS | Encounter Summary ---
Author Organization [employer] Address [address] [facility] 7t [place] [address] Care Team Providers Care Computer Forensic Specialist Name Role Phone Amy Mejia Primary Care Provider [phone] Encounter Details Date Type Department Care Team (Latest Contact Info) Description 10/19/2024 Travel Social History Tobacco Use Types Packs/Day [...] the past 12 months, has t he [employer], gas, oil or water company threatened to [...] Description 01/05/2025 9:30 AM EDT Office Visit [facility] MED[facility]INE [address] [place] [address] Amy Mejia ANP [address] [place] [address] documented as of this encounter Visit Diagnoses Not on filedocumented in this encounter Additional Health Concerns Assessment Noted Time PHQ-9 Depression Total Score: 18 025 12:10 PM EDT documented as of this encounter Care Teams Computer Forensic Specialist Relationship Specialty Start Date End Date Amy Mejia ANP [address] [place] [address] PCP - General Family Medicine 02/01/23 Marianna Mcgovern Middleware Architect 02/03/24 documented as of this encounter
[2024-10-24 19:17] LABS: TSH reflex Free T4 2.25 uIU/mL (0.32-4.0)
== END 2024-10-24 16:14 | disposition home or self-care (01) ==
LOC: HO.HHCL 16:13
PROVIDERS: Visit Provider Advanced Practice Midwife
DX: R79.89 Other specified abnormal findings of blood chemistry (principal)
CPT/HCPCS: 36415; 84443

== ENCOUNTER 2025-02-07 15:35 | Outpatient (REF) | payer MEDICAID, SELFPAY ==
--- NOTE | ~2025-02-07 | US_ITS ---
CLINICAL HISTORY: recheck gallbladder polyp, compared to 07 16 24 Abd US US abdomen complete with duplex and color Doppler Comparison: US/SR - US ABDOMEN COMPLETE - 06/30/24 08:43 EST Findings: The visualized pancreas, aorta, and inferior vena cava are unremarkable. Liver is enlarged and echotexture. Right lobe 18.5 cm length. Probable focal fatty sparing near the gallbladder fossa. Common duct 2.0 mm diameter. Physiologic distention of the gallbladder. No gallstones or sludge. 5 x 4 x 4 mm gallbladder polyp previously measuring 6 x 5 x 4 mm. No pericholecystic fluid. No sonographic Kaur sign. Main portal vein antegrade. Right kidney normal size, 9.8 cm in length. Normal cortical width and echotexture. No solid or cystic renal masses. No nephrolithiasis. No hydronephrosis. Left kidney normal, 9.7 cm in length. Normal cortical width and echotexture. No solid or cystic renal masses. No nephrolithiasis. No hydronephrosis. Spleen measures 13.9 cm. No splenic masses. No ascites. No lymphadenopathy. Impression: 1. Mild hepatomegaly. Hepatic steatosis with focal fatty sparing. 2. Gallbladder polyp as described. This document has been electronically signed by: Orion Hwang MD on 02/08/2025 07:55:45
--- OUTSIDE RECORDS SUMMARY | 2025-02-07 15:43 | XMS_ITS | Encounter Summary ---
Author Organization [employer] Address 75 [facility] 7t [place] [address] Care Team Providers Care Pharmacy Intake Coordinator Name Role Phone Amy Mejia Primary Care Provider [phone] Reason for Visit * Reason Onset Date Comments Nurse Triage 03/26/2023 Encounter Details Date Type Department Care Team ([facility] st Contact Info) Description 03/26/2023 Telephone [facility] MEDICINE [address] [place], [place] [phone] Amy Mejia ANP [address] [place] [address] Nurse Triage Social History Tobacco Use Types [...] number, Messages left to return call to [phone]. * Telephone Encounter - Radha Sainz - 03/26/2023 10:13 AM EDT Patient calling to report heartburn . Patient speaks Faroese. Advised triage nurse will call patient back. documented in this encounter Plan of Treatment Upcoming Encounters Date Type Department Care Team (Late st Contact Info) Description 04/11/2025 3:00 PM EDT Office Visit [facility] MEDICINE [address] [place] [address] Amy Mejia ANP [address] [place] [address] documented as of this encounter Visit Diagnoses Not on filedocumented in this encounter Additional Health Concerns Assessment Noted Time PHQ-9 Depression Total Score: 5 02/26/20 23 1:11 PM EDT documented as of this encounter Care Teams Pharmacy Intake Coordinator Relationship Specialty Start Date End Date Amy Mejia ANP [address] [place] [id number] PCP - General Family Medicine 02/01/23 documented as of this encounter
== END 2025-02-07 15:36 | disposition home or self-care (01) ==
LOC: HO.US 15:35
PROVIDERS: PCP Nurse Practitioner Primary Care; Visit Provider Nurse Practitioner Primary Care
DX: K82.4 Cholesterolosis of gallbladder (principal)
CPT/HCPCS: 76700

== ENCOUNTER → 2025-02-07 15:37 | Outpatient (BNV) | payer MEDICAID, SELFPAY | PROVIDERS: PCP Nurse Practitioner Primary Care; Visit Provider Radiology Diagnostic Radiology | DX: K76.0 Fatty (change of) liver, not elsewhere classified (principal); K82.4 Cholesterolosis of gallbladder | CPT/HCPCS: 76700 ==

== ENCOUNTER 2025-03-07 10:44 | Outpatient (REF) | payer MEDICAID, SELFPAY ==
--- OUTSIDE RECORDS SUMMARY | 2025-03-07 11:35 | XMS_ITS | Encounter Summary ---
Author Organization [employer] Address 75 [facility] 7t [place] [address] Care Team Providers Care Inner Tube Cutter Name Role Phone Amy Mejia Primary Care Provider [phone] Reason for Visit * Reason Onset Date Comments Nurse Triage 03/26/2023 Encounter Details Date Type Department Care Team ([facility] st Contact Info) Description 03/26/2023 Telephone [facility] MEDICINE [address] [place], [place] [phone] Amy Mejia ANP [address] [place] [address] Nurse Triage Social History Tobacco Use Types [...] number, Messages left to return call to [phone]. * Telephone Encounter - Radha Sainz - 03/26/2023 10:13 AM EDT Patient calling to report heartburn . Patient speaks Kyrgyz. Advised triage nurse will call patient back. documented in this encounter Plan of Treatment Upcoming Encounters Date Type Department Care Team (Late st Contact Info) Description 04/11/2025 3:00 PM EDT Office Visit [facility] MEDICINE [address] [place] [address] Amy Mejia ANP [address] [place] [address] documented as of this encounter Visit Diagnoses Not on filedocumented in this encounter Additional Health Concerns Assessment Noted Time PHQ-9 Depression Total Score: 5 02/26/20 23 1:11 PM EDT documented as of this encounter Care Teams Inner Tube Cutter Relationship Specialty Start Date End Date Amy Mejia ANP [address] [place] [address] PCP - General Family Medicine 02/01/23 documented as of this encounter
== END 2025-03-07 10:45 | disposition home or self-care (01) ==
LOC: HO.HHCL 10:44
PROVIDERS: PCP Internal Medicine; Visit Provider Internal Medicine
DX: R11.2 Nausea with vomiting, unspecified (principal)
CPT/HCPCS: 36415; 84702

== ENCOUNTER 2025-05-24 11:00 | Outpatient (REF) | payer MEDICAID, SELFPAY ==
[2025-05-25 05:44] LABS: Class Almond 0; Class Brazil Nut 0; Class Cashew 0; Class Codfish 0; Class Cow's Milk 0; Class Egg white 0; Class Hazelnut 0; Class Macadamia Nut 0; Class Peanut 0; Class Salmon 0; Class Scallop 0; Class Sesame Seed 0; Class Shrimp 0; Class Soybean 0; Class Tuna 0; Class Walnut 0; Class Wheat 0; F345-IgE Macadmia Nut <0.10 kU/L
== END 2025-05-24 11:01 | disposition home or self-care (01) ==
LOC: HO.LAB 11:00
PROVIDERS: PCP Nurse Practitioner Primary Care; Visit Provider Nurse Practitioner
DX: K21.9 Gastro-esophageal reflux disease without esophagitis (principal); F90.9 Attention-deficit hyperactivity disorder, unspecified type; F41.8 Other specified anxiety disorders; J45.909 Unspecified asthma, uncomplicated; R74.01 Elevation of levels of liver transaminase levels; E66.9 Obesity, unspecified; Z68.33 Body mass index [BMI] 33.0-33.9, adult
CPT/HCPCS: 36415; 86003

== ENCOUNTER 2025-05-24 11:00 | Outpatient (AMB) | payer MEDICAID, SELFPAY ==
--- NOTE | 2025-05-24 10:59 | MHC.OFFVIS ---
Vital Signs 05/24/25 11:07 Height 5 ft 4 in Weight 196 lb 10.437 oz BMI 33.8 BP 113/76 Blood Pressure Location Lt brachial Position Sitting Pulse 98 Intake Visit Reasons: Gastroesophageal reflux disease (GERD) Intake Note: New patient in office today for GERD. CC: Patient states that she has suffered from GERD since she was 17 but ever since she had her second child it's gotten worse. She also reports diarrhea pretty frequently. Ebd Teacher Required: No Accompanied by: Self / Same As Patient Allergies pineapple (PINEAPPLE) Allergy (Intermediate, Verified 05/24/25 11:10) HIVES No Known Drug Allergies Allergy (Unknown, Verified 05/24/25 11:10) none Medication List - Last Reconciled 05/24/25 by JOAQUÍN Almendarez famotidine 20 mg PO DAILY PRN lansoprazole 30 mg PO BID norelgestromin-ethin.estradiol 150-35 mcg/24 hr (Xulane) 1 patch topical QWEEK pantoprazole 40 mg PO BID HPI HPI Gastroesophageal reflux disease (GERD): Details: 24-year-old female here for initial evaluation of GERD. She is referred by [facility]. PMX Asthma-on albuterol Obesity Transaminitis Dysfunctional uterine bleeding ADHD Depression with anxiety * SURGICAL HISTORY [place] teeth removed * ALLERGIES: NKDA Pineapples Wound dressing adhesive * [employer] CONSULTING LABS: Laboratory Tests 09/27/24 09/27/24 10/24/24 19:12 19:13 16:02 WBC 10.8 Hgb 12.7 Hct 37.4 Plt Count 282 Estimated GFR > 60 Direct Bilirubin < 0.2 AST 32 H ALT 50 H Alkaline Phosphatase 104 TSH 2.25 Beta HCG, Quant 03/07/25 10:46 WBC Hgb Hct Plt Count Estimated GFR Direct Bilirubin AST ALT Alkaline Phosphatase TSH Beta HCG, Quant 67 Ultrasound of the abdomen 02/08/2025 Findings: The visualized pancreas, aorta, and inferior vena cava are unremarkable. Liver is enlarged and echotexture. Right lobe 18.5 cm length. Probable focal fatty sparing near the gallbladder fossa. Common duct 2.0 mm diameter. Physiologic distention of the gallbladder. No gallstones or sludge. 5 x 4 x 4 mm gallbladder polyp previously measuring 6 x 5 x 4 mm. No pericholecystic fluid. No sonographic Kaur sign. Main portal vein antegrade. Right kidney normal size, 9.8 cm in length. Normal cortical width and echotexture. No solid or cystic renal masses. No nephrolithiasis. No hydronephrosis. Left kidney normal, 9.7 cm in length. Normal cortical width and echotexture. No solid or cystic renal masses. No nephrolithiasis. No hydronephrosis. Spleen measures 13.9 cm. No splenic masses. No ascites. No lymphadenopathy. Impression: 1. Mild hepatomegaly. Hepatic steatosis with focal fatty sparing. 2. Gallbladder polyp as described. TODAY'S VISIT [facility] Medical History (Updated 05/24/25 @ 12:38 by JOAQUÍN Almendarez) Anxiety disorder affecting , antepartum Cervical cancer screening Date of last menstrual period (LMP) unknown Late care affecting in third trimester Rh negative state in antepartum period H/O oligohydramnios in prior , currently Surgical History (Updated 05/24/25 @ 11:15 by GABRIEL Colin) H/O unilateral salpingectomy Greenwald teeth removed Family History (Updated 05/24/25 @ 11:12 by GABRIEL Colin) Mother Ovarian cancer Maternal Grandmother Colon cancer Social History (Updated 05/24/25 @ 11:14 by GABRIEL Colin) Household Members: Family Housing: House Are you a primary anesthesiologist and critical care to a significant other at home: No Do you presently have visiting nurse or other home services: No Alcohol intake: current Alcohol intake frequency: holidays/special occasions only Patient Tobacco Use Status: Former Tobacco user e-Cigarette/Vaping Use: Currently Using Substance Use Type: Marijuana Special zoë needs: No Agree to transfusion: Yes Female Reproductive History Menstrual Age of Menarche: 12 Review of Systems Const Denies fatigue, Denies fever(s), Denies night sweats, Denies poor appetite and Reports weight loss ENT Reports Normal hearing present, Denies dental pain, Denies dysphagia, Denies hearing loss, Denies mouth pain, Denies odynophagia, Denies throat swelling, Denies tongue swelling and Reports other (Dentition adequate) Card Reports no additional complaints Resp Reports no additional complaints GI Details: Denies abdominal pain, Denies melena, Denies bloating, Denies hematochezia, Denies constipation, Denies GI cramping, Denies dysphagia, Denies excessive flatus, Denies early satiety, Reports dyspepsia, Reports heartburn, Denies diarrhea, Denies nausea, Denies odynophagia, Denies vomiting and Denies hematemesis Skin/Breast Denies pruritus, Denies lesions, Denies rash and Denies jaundice Neuro Reports Normal hearing present and Denies Abnormal speech present Endo Denies fatigue Aller/Immun Denies throat swelling and Denies tongue swelling Physical Exam Vital Signs: Last Vital Signs Pulse 98 05/24/25 11:07 BP 113/76 05/24/25 11:07 BMI result Body Mass Index 33.8 Const General: cooperative, no acute distress, well developed and well groomed Nutritional Appearance: well nourished and obese Orientation/consciousness: oriented to person, oriented to place and oriented to time Limitations: No language barrier HEENT Head: Yes normocephalic and Yes atraumatic Eyes General: appearance normal, both eyes and all related structures Pupils: Equal, round and reactive pupils present Neck Neck: Yes normal visual inspection and Yes no lymphadenopathy Thyroid: Thyroid normal Resp Effort & Inspection: normal respiratory effort and able to speak in complete sentences Auscultation: clear to auscultation bilaterally Cardio Rate: regular rate Rhythm: regular rhythm Heart sounds: Normal, physiologic split S2 sound present Peripheral pulses: radial pulses present and posterior tibial pulses present GI Inspection: No distended, No Abdominal panniculus present and Yes obesity Palpation (GI): Soft to palpation, nontender, no guarding, not rigid and No hepatosplenomegaly present Percussion: Yes normal to percussion Auscultation: normal bowel sounds Rectal Exam - Female: deferred Abdomen image:  1. scar Skin General skin exam: no rashes or lesions noted, turgor normal, skin not dry, no jaundice, No spider nevi and no striae Rashes: no rashes Nails: normal Neuro General: oriented to person, oriented to place and oriented to time Cranial nerves: Yes Equal, round and reactive pupils present and Yes Normal hearing present Speech: No Abnormal speech present Extrem General: Yes normal to inspection, No clubbing, No cyanosis and No edema Psych Appearance: grossly normal and well kempt Mental Status: mental status grossly normal Speech and movement: Normal speech and movement present Affect: normal affect Attitude: cooperative Thought process: Normal thought process present and not confabulating Thought content: Normal thought content present Insight: Good insight present (Psych) Judgement: Good judgement present (Psych) Assessment & Plan Assessment & Plan (1) GERD (gastroesophageal reflux disease): Code(s): K21.9 - Gastro-esophageal reflux disease without esophagitis Category: Medical (2) Diarrhea: Code(s): R19.7 - Diarrhea, unspecified Category: Medical (3) Upper abdominal pain: Code(s): R10.10 - Upper abdominal pain, unspecified Category: Medical Plan - The patient is a 24-year-old female presenting with symptoms of chronic heartburn. - Heartburn symptoms initiated during first , initially responsive but exacerbated during second , affecting nearly all foods and even water. - Severe heartburn led to vomiting; symptoms persisted despite treatment with pantoprazole twice daily and famotidine as needed. - Weight reduction from 220 lbs to 190 lbs did not alleviate heartburn severity. - Family history noted for hiatal hernia with surgical repair and GERD. - Gallbladder polyp's presence with previously noted common bile duct dilation. - Patient underwent negative H. pylori and abdominal ultrasounds for hepatic and cholecystic assessment due to past cholestasis in . - Reports frequent diarrhea episodes occurring at least twice weekly over the past couple of years. - Maternal grandmother with history of hiatal hernia requiring surgical intervention. - Mother with history of GERD managed with medication. - Family history of colon cancer starting in early 60s. The patient's nutrition has been impacted by chronic heartburn symptoms, leading to limitations in food intake. The patient has been managing symptoms with pantoprazole and famotidine. She attempts to avoid known dietary triggers and has eliminated lactose due to intolerance. Previous weight of approximately 220 pounds has decreased to 190 pounds, indicating substantial weight loss. She tries to follow a controlled diet to avoid foods exacerbating GERD symptoms, despite reported difficulty. - Start taking lansoprazole as directed by the prescription once the medication is approved. - Continue taking pantoprazole until lansoprazole becomes available. Keep leftover pantoprazole if lansoprazole does not work. - Follow a diet avoiding known triggers that worsen heartburn symptoms. Examples: avoid spicy foods, caffeine, and alcohol. - Attend all scheduled appointments for upcoming tests: upper endoscopy, barium swallow, and HIDA scan. - Get a blood test to check for food allergies as directed. Present the RAST sheet at the lab for specific tests. - Schedule a follow-up appointment in three weeks to review test results and symptom progression. - Seek medical attention if experiencing worsening symptoms, new severe symptoms, or concerns before the next appointment. Orders: Orders [place] barium swallow 05/24/25 J45.909 - Unspecified asthma, uncomplicated, F90.9 - Attention-deficit hyperactivity disorder, unspecified type, F41.8 - Other specified anxiety disorders, E66.9 - Obesity, unspecified, R74.01 - Elevation of levels of liver transaminase levels NM hepatobiliary w pharm 05/24/25 R19.7 - Diarrhea, unspecified, R10.10 - Upper abdominal pain, unspecified Referrals GI Procedure Notification K21.9 - Gastro-esophageal reflux disease without esophagitis Medications: New lansoprazole 30 mg PO BID 60 caps 6RF K21.9 - Gastro-esophageal reflux disease without esophagitis Coding Level of Care Code New Pt Level 3 (78392) Diagnoses GERD (gastroesophageal reflux disease) K21.9 Diarrhea R19.7 Upper abdominal pain R10.10
[2025-05-24 11:07] VITALS: BP 113/76; PULSE 98; BMI 33.8
--- OUTSIDE RECORDS SUMMARY | 2025-05-24 13:45 | XMS_ITS | Encounter Summary ---
Author Organization [employer] Address [address] [facility] [address] 7t [place] [address] Care Team Providers Care Die Finisher Forging Name Role Phone Amy Mejia Primary Care Provider [phone] Sujatha Nolan RN Unavailable [phone] Emeli Brooks Unavailable Reason for Visit * Reason Onset Date Comments Nurse Triage 03/26/2023 Encounter Details Date Type Department Care Team (Late st Contact Info) Description 03/26/2023 Telephone [facility] MEDICINE [address] [place], [place] [phone] Amy Mejia ANP [address] [place], [place] [phone] Nurse Triage Social History Tobacco Use Types [...] number, Messages left to return call to [phone]. * Telephone Encounter - Radha Sainz - 03/26/2023 10:13 AM EDT Patient calling to report heartburn . Patient speaks Macedonian. Advised triage nurse will call patient back. documented in this encounter Plan of Treatment Not on file documented as of this encounter Visit Diagnoses Not on filedocumented in this encounter Additional Health Concerns Assessment Noted Time PHQ-9 Depression Total Score: 5 02/26/20 23 1:11 PM EDT documented as of this encounter Care Teams Die Finisher Forging Relationship Specialty Start Date End Date Amy Mejia ANP [address] [place] [address] PCP - General Family Medicine 02/01/23 Sujatha Nolan, MAK [address] [place] [address] Registered Nurse Family Medicine 03/21/25 Emeli Brooks 03/21/25 documented as of this encounter
--- OUTSIDE RECORDS SUMMARY | 2025-05-24 13:45 | XMS_ITS | Encounter Summary ---
Author Organization [employer] Address [address] [facility] [address] 7t [place] [address] Care Team Providers Care Freelance Court Reporter Name Role Phone Amy Mejia Primary Care Provider [phone] Sujatha Nolan RN Unavailable [phone] Emeli Brooks Unavailable Reason for Visit * Reason Onset Date Comments Medication Question 02/03/2024 Encounter Details Date Type Department Care Team ([facility] st Contact Info) Description 02/03/2024 Telephone [facility] MEDICINE [address] [place], [place] [phone] Amy Mejia ANP [address] [place], [place] [phone] Medication Question Social History Tobacco Use Types [...] AM EDT documented as of this encounter Functional Status * Over the past 2 weeks, how often have you been bothered by any of the following problems? Question Answer Date of Assessment Author Patient Health Questionnaire -2 Score 0 02/03/2024 10:56 AM Rema Ruby MA * Over the last 2 weeks, how often have you been bothered by any of the following problems? Question Answer Date of Assessment Author Feeling nervous, anxious, or on edge 3 02/03/2024 10:55 AM Rema Ruby MA Not being able to stop or control worrying 2 02/03/2024 10:55 AM Rema Ruby MA Worrying too much about different things 2 02/03/2024 10:55 AM Rema Ruby MA Trouble relaxing 3 02/03/2024 10:55 AM Jo Ann Ruby MA Being so restless that it is hard to sit still 3 02/03/2024 10:55 AM Rema Ruby MA Becoming easily annoyed or irritable 2 02/03/2024 10:55 AM Rema Ruby MA Feeling afraid as if somethi ng awful might happen 2 02/03/2024 10:55 AM Rema Ruby MA ISHAN-7 Total Score 17 02/03/2024 10:55 AM Jo Ann Ruby MA * Over the past 2 weeks, how often have you been bothered by any of the following problems? Question Answer Date of Assessment Author Little interest or pleasure in doing things Not at all 02/03/2024 10:56 AM Gisele Ruby MA Feeling down, depressed, or hopeless Not at all 02/03/2024 10:56 AM Rema Ruby MA Trouble falling or staying asleep, or sleeping too much Nearly every day 02/03/2024 10:56 AM Rema Ruby MA Feeling tired or having little energy Nearly every day 02/03/2024 10:56 AM Rema Ruby MA Poor appetite or overeating Several days 02/03/2024 10:56 AM Rema Ruby MA Feeling bad about yourself - or that you are a failure or have let yourself or your family down Several days 02/03/2024 10:56 AM Rema Ruby MA Trouble concentrating on things, such as reading the newspaper or watching television Not at all 02/03/2024 10:56 AM Rema Ruby MA Moving or speaking so slowly that other people could have noticed? Or the opposite - being so fidgety or restless that you have been moving around a lot more than usual. Not at all 02/03/2024 10:56 AM Rema Ruby MA Thoughts that you would be better off or hurting yourself in some way Not at all 02/03/2024 10:56 AM Tee Ruby MA Patient Health Questionnaire-9 Score 8 02/03/2024 10:56 AM Brandi Ruby MA documented as of this encounter Miscellaneous Notes * Telephone Encounter - Juanita Tristan - 02/04/2024 3:06 PM EDT Tc from pt requesting status on medication once it has been sent. Please contact at [phone] * Telephone Encounter - Radha Sainz - [...] documented as of this encounter Care Teams Freelance Court Reporter Relationship Specialty Start Date End Date Amy Mejia ANP [address] [place] [address] PCP - General Family Medicine 02/01/23 Sujatha Nolan, MAK [address] [place] [address] Registered Nurse Family Medicine 03/21/25 Emeli Brooks 03/21/25 documented as of this encounter
--- OUTSIDE RECORDS SUMMARY | 2025-05-24 13:45 | XMS_ITS ---
Author Organization [employer] Address 75 [facility] 7t [place] [address] Care Team Providers Care Design Coordinator Name Role Phone Amy Mejia Primary Care Provider [phone] Sujatha Nolan RN Unavailable [phone] Emeli Brooks Unavailable CM Complex Status:Outreach In Progress (Enrolling) Start date:03/21/2025 Enrollment reason:ADT Feed Overview ADT-[facility] ED 03/21/25 Case Team Name Relationship Phone Sujatha Nolan RN(Responsible Staff) Registered Nurse [phone] Continued Care and Services Coordination
--- OUTSIDE RECORDS SUMMARY | 2025-05-24 13:45 | XMS_ITS ---
Author Organization [employer] Address 75 [facility] 7t [place] [address] Care Team Providers Care Gum Cook Name Role Phone Amy Mejia Primary Care Provider [phone] Sujatha Nolan RN Unavailable [phone] Emeli Brooks Unavailable CHW Complex Status:Outreach In Progress (Enrolling) Start date:03/21/2025 Enrollment reason:ADT Feed Overview ADT-[facility] ED 03/21/25. Please outreach for enrollment. Case Team Name Relationship Phone Emeli Brooks(Responsible Staff) [phone] Continued Care and Services Coordination
--- OUTSIDE RECORDS SUMMARY | 2025-05-24 13:45 | XMS_ITS | Encounter Summary ---
Author Organization [employer] Address [address] [facility] [address] 7t [place] [address] Care Team Providers Care Cryptographic Vulnerability Analyst Name Role Phone Amy Mejia Primary Care Provider [phone] Sujatha Nolan RN Unavailable [phone] Emeli Brooks Unavailable Reason for Visit * Reason Onset Date Comments Results 05/04/2024 Encounter Details Date Type Department Care Team ([facility] st Contact Info) Description 05/04/2024 Telephone [facility] MEDICINE [address] [place], [place] [phone] Amy Mejia ANP [address] [place], [place] [phone] Results Social History Tobacco Use Types Packs/Day [...] the past 12 months, has t he [employer], gas, oil or water [employer] threatened to shut off services in your [...] removal, does not want to go to [place], and states she wants to try a [...] I can make phone calls. Thanks! -- Mika Brown - Your IUD is in your uterus, [...] will need to be removed with a boardinghouse keeper. Would you like to have appointment here or would you like me to send you back to [facility]? I got a message from the radiology [...] 12:28 PM EDT Could you please contact Stephanie? See my message to her from earlier [...] documented as of this encounter Care Teams Cryptographic Vulnerability Analyst Relationship Specialty Start Date End Date Amy Mejia ANP [address] [place] [address] PCP - General Family Medicine 02/01/23 Sujatha Nolan RN [address] [place] [address] Registered Nurse Family Medicine 03/21/25 Emeli Brooks 03/21/25 documented as of this encounter
--- OUTSIDE RECORDS SUMMARY | 2025-05-24 13:45 | XMS_ITS | Clinical Summary ---
Author Organization [employer] Address [address] [place] [address] Care Team Providers Care Central Office Operator Name Role Phone Amy Mejia Primary Care Provider [phone] Sujatha Nolan RN Unavailable [phone] Emeli Brooks Unavailable Allergies Active Allergy Reactions Criticality Noted Date Comments Pineapple 02/25/2023 itching and swelling Wound Dressing Adhesive 02/25/2023 Medical tape, localized reaction Medications * This document contains information received from the source organization and may not represent a complete record from that organization. Ventolin HFA 108 (90 Base) MCG/ACT inhalerIndicatio ns:Wheezing INHALE 2 PUFFS BY MOUTH EVERY 6 HOURS IF NEEDED FOR WHEEZING 18 g 2 07/06/20 24 Active norethindrone (Micronor) 0.35 MG tablet Take 1 tablet (0.35 mg) by mouth Once per day. 28 tablet 11 08/07/19 25 026 Active Blood Pressure kitIndications:E levated blood pressure reading without diagnosis of hypertension 1 each 2 times daily. 1 kit 10/06/19 25 026 Active Tirzepatide-Weig ht Management (Zepbound) 7.5 MG/0.5ML solution auto-injectorInd ications:Class 2 obesity with body mass index (BMI) of 39.0 to 39.9 in adult, unspecified obesity type, unspecified whether serious comorbidity present Inject 0.5 mL (7.5 mg) under the skin 1 (one) time per week. INJECT ONE PEN (=7.5 MG) SUBCUTANEOUSLY ONCE A WEEK 2 mL 2 01/06/20 25 Active famotidine (Pepcid) 20 MG tabletIndication s:Gastroesophage al reflux disease, unspecified whether esophagitis present Take 1 tablet once daily as needed for acid reflux 90 tablet 01/10/20 25 Active pantoprazole (Protonix) 40 MG EC tabletIndication s:Gastroesophage al reflux disease, unspecified whether esophagitis present Take 1 daily in AM and 1 in PM if needed; Do not crush, chew, or split. 180 tablet 1 01/11/20 25 Active Vit-Fe Fumarate-FA ( Vitamins) 27-0.8 MG tabletIndication s:Positive blood test Take 1 tablet by mouth Once per day. 90 each 1 03/07/20 25 Active Active Problems Problem Noted Date Diagnosed Date Gastroenteritis 03/07/2025 Assessment & Plan (03/07/2025 10:44 AM EDT): Try to hydrate at home with small sips of liquids Advised to rest at home I will prescribe Zofran for nausea vomiting, I counseled patient if nausea vomiting and diarrhea are persistent and she does not hold anything in her stomach to go to the emergency room for possible IV fluids COVID and flu test at office is negative, it was attempted urine test but patient could not use the bathroom for this reason I order blood test patient will be contacted with results Left shoulder pain 11/21/2024 Class 2 obesity with body ma ss [...] life style modifications, diet and referral to patient relations specialist. Recommended to decrease soda and sugary [...] side effects (blurred vision). She's connected with [employer], Berenice Lua and reports she has an [...] Health Integration Plan Internal Follow up with [facility] Patient Self Plan Patient to utilize skills provided in intervention , Patient [facility], Patient to engage in OP therapy , and Patient to reach out to [facility] as needed. Patient is currently engage with [facility] for OP therapy. Assessment & Plan (02/04/2024 7:27 PM EDT): -depressive symptoms improved with Abilify, but patient is experiencing side effects, will try treatment for ADHD first, then reassess symptoms and treat mood disorder Healthcare maintenance 02/25/2023 Astigmatism of both eyes 02/25/2023 Mood disorder 09/24/2017 Overview (10/05/2024): Was following w/ bottling machine operator Jose Gibbs and counselor at [facility]. Is trying to relocate psych services to [...] side effects (blurred vision). She's connected with [employer], Berenice Lua and reports she has an [...] Health Integration Plan Internal Follow up with [facility] Patient Self Plan Patient to utilize skills provided in intervention , Patient to reach out to [facility] team as needed, Patient to engage in OP therapy , and Patient to reach out to [facility] as needed. Patient is currently engage with [facility] for OP therapy. Assessment & Plan (02/04/2024 [...] disorder since stimulant may worsen anxiety Encounters Date Type Department Care Team Description 04/16/2025 Patient Outreach [address] [address] Amy Mejia ANP Care Management (C3CM- initial assessment/ enrollment. lvm) 04/13/2025 Patient Outreach [address] [address] Amy Meija ANP Care Coordination (CM/CHW appt reminder) 04/11/[address] [address] Amy Mejia ANP 04/10/[address] [address] Amy Mejia ANP chart prep 04/09/2025 Patient Outreach [address] [address] Amy Mejia ANP Care Coordination (CM/CHW outreach) 04/03/2025 Patient Outreach [address] [address] Amy Mejia ANP 03/23/2025 Patient Outreach [address] [address] Amy Mejia ANP Care Coordination (SDOH) 03/21/2025 Patient Outreach [address] [address] Amy Mejia ANP Care Coordination (CHW chart review) 03/21/2025 Patient Outreach [address] [address] Amy Mejia ANP Care Management (C3CM- chart review) 03/21/2025 Patient Outreach [address] [address] Amy Mejia ANP 03/19/2025 Patient Outreach [address] [address] Amy Mejia ANP Transition Of Care (Tcm) (HDF unscheduled) 03/07/2025 10:20 AM EDT Office Visit [facility] [address] [place] [phone] Karly Rodriguez MD Gastroenteritis (Primary Dx); Nausea and vomiting, unspecified vomiting type 03/07/2025 Results Follow-Up [address] [address] Amy Mejia ANP US Abdomen Complete 03/07/2025 Results Follow-Up [address] [address] Karly Rodriguez MD POCT Rapid Influenza B CARROLL ID NOW, POCT Rapid Influenza A CARROLL ID NOW, POCT Rapid Covid-19 BinaxNOW, hCG, Total, Quantitative 03/07/2025 Orders Only [facility] [address] [place] [address] Karly Rodriguez MD Positive blood test (Primary Dx) 03/07/2025 Telephone [facility] [address] [place] [address] Karly Rodriguez MD 03/07/2025 Travel from Last 3 Months Immunizations Immunization Administration Dates Next Due DTaP 03/22/2007, 4,03/21/2002,02/03,2001 [...] with others, in a hotel, in a fdc, living outside on the street, on a [...] Sign Reading Time Taken Comments Blood Pressure 149/89 03/07/2025 10:11 AM EDT Pulse 98 03/07/2025 10:11 AM EDT Temperature 35.6 C (96 F) 03/07/2025 10:11 AM EDT Respiratory Rate 16 03/07/2025 10:11 AM EDT Oxygen Saturation 99% 02/06/2025 6:11 PM EDT Inhaled Oxygen Concentration - - Weight 92.1 kg (203 lb) 03/07/2025 10:11 AM EDT Height 162.6 cm (5' 4 ) 03/07/2025 10:11 AM EDT Body Mass Index 34.84 03/07/2025 10:11 AM EDT Plan of Treatment Health Maintenance Due Date Last Done Comments HIV Screening 2001 Pneumococcal Vaccine: Pediatrics (0 to 5 Years) and At-Risk Patients (6 to 49) Years (1 of 1 - PPSV23) 2007 08/28/2004, 05/16/2002, 03/21/2002, Additional history exists Meningococcal B Vaccine (1 of 2 - Standard) 2017 Hepatitis A Vaccines (2 of 2 - Risk 2-dose series) 03/27/2018 09/24/2017, 09/24/2017 Hepatitis C Screening 2019 SDOH Screening 03/23/2025 03/23/2024 COVID-19 Vaccine ( season) 2025 08/25/2021, 01/09/2021, 12/19/2020 Influenza Vaccine (#1) 2025 08/25/2021, 2021 Depression Monitoring 04/07/2025 10/05/2024, 025 Chlamydia and Gonorrhea Screening 05/30/2025 05/30/2024, 05/02/2024 Family Planning (PISQ) 08/07/2025 08/07/2024 Alcohol/Substance Use Screening 08/10/2025 08/10/2024 Pap Smear 09/09/2025 09/09/2022 Disability Screening 10/19/2025 10/19/2024 Tobacco Screening 03/07/2026 03/07/2025 Lipid Panel 06/12/2029 06/12/2024, 0707/2023, 12/10/2021, Additional history exists DTaP/Tdap/Td Vaccines (10 [...] Procedure Name Priority Date/Time Associated Diagnosis Comments HCG, TOTAL, QN Routine 03/07/2025 10:46 AM EDT Nausea and vomiting, unspecified vomiting type POCT INFLUENZA B (ID NOW RAPID MOLECULAR) Routine 03/07/2025 10:25 AM EDT Nausea and vomiting, unspecified vomiting type POCT RAPID COVID ANTIGEN Routine 03/07/2025 10:20 AM EDT Nausea and vomiting, unspecified vomiting type POCT INFLUENZA A (ID NOW RAPID MOLECULAR) Routine 03/07/2025 10:20 AM EDT Nausea and vomiting, unspecified vomiting type LIPID PANEL, STANDARD Routine 06/12/2024 9:40 AM EST Elevated cholesterol CHLAMYDIA/N. GONORRHOEAE RNA, TMA, UROGENITAL Routine 05/30/2024 3:36 PM EST PAP SMEAR Routine 09/09/2022 12:00 AM EST from Last 3 Months or Most Recently Relevant to Health Maintenance Results * hCG, Total, Quantitative (03/07/2025 10:46 AM EDT) HCG Quantitative 67 mIU/mL [facility] Comment:Weeks post LMP Appro ximate hCG(Last Menstrual Period) Range (mIU/ml)3 - 4 weeks 9 - 1304 - 5 weeks 75 - 2,6005 - 6 weeks 850 - 20,8006 - 7 weeks 4000 - 100,2007 - 12 weeks 11,500 - 289,18102 - 16 weeks 18,300 - 137,23254 - 29 weeks (2nd trimester) 1,400 - 53,02079 - 41 weeks (3rd trimester) 940 - 60,000The Carroll B- hCG assay is used for the early detection ofpregnancy; it cannot be used to diagnose any conditionunrelated to . If a B-hCG level is not supportedby the clinical evidence, results should be confirmed by analternative method (qualitative urine hCG, for example). Blood Venous blood specimen / Unknown 03/07/2025 10:46 AM EDT 03/07/2025 11:15 AM EDT us Karly Tan MD LAB BLOOD ORDERABLES Final Result [facility] [address] [place] [phone] * POCT Rapid Influenza B CARROLL ID NOW (03/07/2025 10:25 AM EDT) Influenza B Negative Negative, Indeterminate [facility] QC Media Lot # [id number] [facility] Lot# Expiration Date , [facility] Swab 03/07/2025 10:2 5 AM EDT Karly Tan MD POINT OF CARE TEST EN TER/EDIT ORDERABLES Final Result Performing Organization Address [facility]/ZIP Co de Phone Number [facility] [address] [place] [phone] * POCT Rapid Influenza A CARROLL ID NOW (03/07/2025 10:20 AM EDT) [facility] Influenza A Negative Negative, Indeterminate [facility] QC Media Lot # [id number] [facility] Lot# Expiration Date [facility] Swab 03/07/2025 10:2 0 AM EDT Karly Tan MD POINT OF CARE TEST EN TER/EDIT ORDERABLES Final Result Performing Organization Address [facility] de Phone Number [facility] [address] [place] [phone] * POCT Rapid Covid-19 BinaxNOW (03/07/2025 10:20 AM EDT) [facility] Rapid COVID Ag Negative QC Media Lot # [id number] Lot# Expiration Date Swab 03/07/2025 10:2 0 AM EDT Karly Tan MD POINT OF CARE TEST EN TER/EDIT ORDERABLES Final Result * (ABNORMAL) Lipid Panel, Standard (06/12/2024 9:40 AM EST) [facility] Triglycerides 98 <150 mg/dL [facility] Comment:Desirable Triglyceri de: less than 150 mg/dLBorderline High Triglyceride 150-199 mg/dLHigh Triglyceride: 200-499 mg/dLVery High Triglyceride: greater than or equal to 5OO mg/dL Cholesterol 155 <200 mg/dL [facility] Comment:Desirable Cholestero l: less than 200 mg/dLBorderline High Cholesterol: 200-239 mg/dLHigh Cholesterol: greater than 239 mg/dL LDL Cholesterol Calculated 105(H) <100 mg/dL [facility] Comment:Desirable LDL: less than 100 mg/dLNear Optimal/Above Optimal LDL: 110- 129 mg/dLBorderline High LDL: 130-159 mg/dLHigh LDL: 160-189 mg/dLVery High LDL: greater than or equal to 190 mg/dL HDL Cholesterol 31(L) >40 mg/dL [facility] Comment:Desirable HDL: great er than 40 mg/dL Note: This HDL assay may give artificially low results in patients with liver disease. Blood Venous blood specimen / Unknown 06/12/2024 9:40 AM EST 06/12/2024 11:32 AM EST [facility] LAB BLOOD ORDERABLES Final Resul t [facility] [address] [place] [phone] * Chlamydia/N. Gonorrhoeae RNA, TMA, Urogenitial (05/30/2024 3:36 PM EST) CT PCR NOT DETECTED Not Detect. [facility] Comment:A not detected test result [...] psychologicalconsequences. NG PCR NOT DETECTED Not Detect. [facility] Comment:A not detected test result [...] PM EST 05/30/2024 3:40 PM EST Narrative [facility] - 05/30/2024 5:19 PM EST Vaginal Generic External Data Provider LAB MICROBIOLOGY - GENERAL ORDERABLES Final Result Performing Organization Address [facility] Co de Phone Number [facility] [address] [place] [phone] * Pap Smear (09/09/2022 12:00 AM EST) Swab Stacey MadridNye LAB CYTOLOGY ORDERABLES Final Re sult Performing Organization Address [facility] Co de Phone Number [facility] [address] [place] [phone] from Last 3 Months or Most Recently Relevant to Health Maintenance [facility] Care Teams Central Office Operator Relationship Specialty Start Date End Date Amy Mejia ANP [address] [place] [phone] PCP - General Family Medicine 02/01/23 Sujatha Nolan RN [address] [place] [phone] Registered Nurse Family Medicine 03/21/25 Emeli Brooks 03/21/25
== END 2025-05-24 12:50 | disposition home or self-care (01) ==
LOC: HO.HGI 11:00
PROVIDERS: PCP Internal Medicine; Visit Provider Nurse Practitioner
DX: K21.9 Gastro-esophageal reflux disease without esophagitis (principal); R19.7 Diarrhea, unspecified; R10.10 Upper abdominal pain, unspecified
CPT/HCPCS: 99203

== ENCOUNTER → 2025-07-16 10:57 | Outpatient (REF) | payer MEDICAID, SELFPAY ==
--- NOTE | ~2025-07-16 | NM_ITS ---
EXAMINATION: NM HEPATOBILIARY WITH PHARM HISTORY: R19.7 - Diarrhea, unspecified. TECHNIQUE: An hepatobiliary scan was performed following the intravenous administration of 5 mCi technetium 99m-mebrofenin. Sequential images were obtained over 1 hour. Subsequently, the patient received 1.8 microgram of IV CCK over 30 minutes and additional imaging was performed. COMPARISON: Correlation is made with an abdominal ultrasound dated 02/07/2025. FINDINGS: There is normal uptake and excretion of the radiopharmaceutical by the liver. Gallbladder activity is noted at 10 minutes. Common bile duct activity is seen at 12 minutes. Small bowel activity is noted at 14 minutes. After the administration of intravenous CCK, the estimated gallbladder ejection fraction is 34%, which is abnormally low (normal 35-80%), suggestive of biliary dyskinesia. NM/NM hepatobiliary w pharm IMPRESSION: Abnormally low gallbladder ejection fraction which can be seen in the setting of biliary dyskinesia. Electronically signed by: Shaun Johnson MD 07/16/2025 01:25 PM [facility]
--- OUTSIDE RECORDS SUMMARY | 2025-07-16 13:45 | XMS_ITS | Encounter Summary ---
Author Organization [employer] Address [address] [place] [address] Care Team Providers Care Cloud Architect Name Role Phone Alexander Whitaker Primary Care Provider Sujatha Nolan RN Unavailable [phone] Emeli Brooks Unavailable Encounter Details Date Type Department Care Team ([facility] Contact Info) Description 07/16/2025 Orders Only [facility] External Provider, [facility] Social History Tobacco Use Types Packs/Day Years [...] with others, in a hotel, in a long-term, living outside on the street, on a [...] as of this encounter Plan of Treatment Not on file documented as of this encounter Procedures Procedure Name Priority Date/Time Associated Diagnosis Comments NM HEPATOBILIARY W PHARM Routine 07/16/2025 11:30 AM EST documented in this encounter Results * NM Hepatobiliary w Pharm (07/16/2025 11:30 AM EST) Anatomical Region Laterality Modality Body Nuclear Medicine 07/16/2025 11:3 0 AM EST Narrative 07/16/2025 1:28 PM EST [address] [address] Nuclear Medicine Report Signed Patient: Harjeet Frazier MR#: [id number] : 2000 Acct:[id number] Age/Sex: 24 / F ADM Date: 07/16/25 Loc: [facility] Attending Dr: Caryl YANES Ordering Physician: Caryl Gonzalez Date of Service: 07/16/25 Procedure(s): NM hepatobiliary w pharm Accession Number(s): [id number] cc: Caryl Gonzalez; ALEXANDER WHITAKER NP Reason for Exam: R19.7 - Diarrhea, unspecified EXAMINATION: NM HEPATOBILIARY WITH PHARM HISTORY: R19.7 - Diarrhea, unspecified. TECHNIQUE: An hepatobiliary scan was performed following the intravenous administration of 5 mCi technetium 99m-mebrofenin. Sequential images were obtained over 1 hour. Subsequently, the patient received 1.8 microgram of IV CCK over 30 minutes and additional imaging was performed. COMPARISON: Correlation is made with an abdominal ultrasound dated 02/07/2025. FINDINGS: There is normal uptake and excretion of the radiopharmaceutical by the liver. Gallbladder activity is noted at 10 minutes. Common bile duct activity is seen at 12 minutes. Small bowel activity is noted at 14 minutes. After the administration of intravenous CCK, the estimated gallbladder ejection fraction is 34%, which is abnormally low (normal 35-80%), suggestive of biliary dyskinesia. NM/NM hepatobiliary w pharm IMPRESSION: Abnormally low gallbladder ejection fraction which can be seen in the setting of biliary dyskinesia. Electronically signed by: Sahun Johnson MD 07/16/2025 01:25 PM [facility] Dictated By: Shaun Johnson MD Signed By: <Electronically signed by Shaun Johnson MD in OV> 07/16/25 1325 DD/ 1130 TD/TT: 07/16/25 1300 Director Veterinary: Procedure Note Donotuseinterpreter, Image - 07/16/[address] [address] Nuclear Medicine Report Signed Patient: Arpit Frazier#: [id number] : 2000Acct:[id number] Age/Sex: 24 / FADM Date: 07/16/25 Loc: [facility] Attending Dr: Caryl YANES Ordering Physician: Caryl Gonzalez Date of Service: 07/16/25 Procedure(s): NM hepatobiliary w pharm Accession Number(s): [id number] cc: Caryl Gonzalez; ALEXANDER WHITAKER NP Reason for Exam: R19.7 - Diarrhea, unspecified EXAMINATION: NM HEPATOBILIARY WITH PHARM HISTORY: R19.7 - Diarrhea, unspecified. TECHNIQUE: An hepatobiliary scan was performed following the intravenous administration of 5 mCi technetium 99m-mebrofenin. Sequential images were obtained over 1 hour. Subsequently, the patient received 1.8 microgram of IV CCK over 30 minutes and additional imaging was performed. COMPARISON: Correlation is made with an abdominal ultrasound dated 02/07/2025. FINDINGS: There is normal uptake and excretion of the radiopharmaceutical by the liver. Gallbladder activity is noted at 10 minutes. Common bile duct activity is seen at 12 minutes. Small bowel activity is noted at 14 minutes. After the administration of intravenous CCK, the estimated gallbladder ejection fraction is 34%, which is abnormally low (normal 35-80%), suggestive of biliary dyskinesia. NM/NM hepatobiliary w pharm IMPRESSION: Abnormally low gallbladder ejection fraction which can be seen in the setting of biliary dyskinesia. Electronically signed by: Shaun Johnson MD 07/16/2025 01:25 PM [facility] Dictated By: Shaun Johnson MD Signed By: <Electronically signed by Shaun Johnson MD in OV> 07/16/25 1325 DD/ 1130 TD/TT: 07/16/25 1300 Director Veterinary: [facility] External Provider FLAKITO NM PROCEDURES Edited Result - Final documented in this encounter Visit Diagnoses Not on filedocumented in this encounter Additional Health Concerns Assessment Noted Time PHQ-9 Depression Total Score: 18 10/05/ 025 12:10 PM EDT documented as of this encounter Care Teams Cloud Architect Relationship Specialty Start Date End Date Alexander Whitaker ANP [address] [place] [address] PCP - General Family Medicine 02/01/23 Sujatha Nolan RN [address] [place] [phone] Registered Nurse Family Medicine 03/21/25 Emeli rBooks 03/21/25 documented as of this encounter
--- OUTSIDE RECORDS SUMMARY | 2025-07-16 13:45 | XMS_ITS | Encounter Summary ---
Author Organization [employer] Address [address] [place] [address] Care Team Providers Care Muskrat Trapper Name Role Phone Amy Mejia Primary Care Provider [phone] Sujatha Nolan RN Unavailable [phone] Emeli Brooks Unavailable Reason for Visit * Reason Onset Date Comments Medication Question 02/03/2024 Encounter Details Date Type Department Care Team ([facility] st Contact Info) Description 02/03/2024 Telephone [facility] [address] [place], [place] [phone] Amy Mejia ANP [address] [place], [place] [phone] Medication Question Social History Tobacco Use Types [...] it has been sent. Please contact at [phone] * Telephone Encounter - Radha Sainz - [...] documented as of this encounter Care Teams Muskrat Trapper Relationship Specialty Start Date End Date Amy Mejia ANP [address] [place] [phone] PCP - General Family Medicine 02/01/23 Sujatha Nolan, RN [address] [place], [place] [address] [address] Registered Nurse Family Medicine 03/21/25 Emeli Brooks 03/21/25 documented as of this encounter
--- OUTSIDE RECORDS SUMMARY | 2025-07-16 13:45 | XMS_ITS | Clinical Summary ---
Author Organization [employer] Address [address] 7[address] [place] [address] Care Team Providers Care Manager Intensive Care Unit Name Role Phone Alexander Whitaker Primary Care Provider [phone] Sujatha Nolan RN Unavailable [phone] Emeli Brooks Unavailable Allergies Active Allergy [...] by mouth Once per day. 28 tablet 08/07/19 25 026 Active Additional Information Patient not taking.Reported on 06/16/2025 Blood Pressure kitIndications:E levated blood pressure reading [...] ONCE A WEEK 2 mL 2 01/06/20 Active famotidine (Pepcid) 20 MG tabletIndication s:Gastroesophage al reflux disease, unspecified whether esophagitis present Take 1 tablet once daily as needed for acid reflux 90 tablet 01/10/20 Active Additional Information Patient not taking.Reported on 06/16/2025 pantoprazole (Protonix) 40 MG EC tabletIndication s:Gastroesophage al reflux disease, unspecified whether esophagitis present Take 1 daily in AM and 1 in PM if needed; Do not crush, chew, or split. 180 tablet 1 01/11/20 Active Vit-Fe Fumarate-FA ( Vitamins) 27-0.8 MG tabletIndication s:Positive blood test Take 1 tablet by mouth Once per day. 90 each 1 03/07/20 Active Additional Information Patient not taking.Reported on 06/16/2025 Xulane 150-35 MCG/24HR See Instructions, 1 patch Topically apply to clean, dry, intact skin for contraception apply a new patch to skin weekly for 3 weeks, remove for 1 week, then repeat cycle, # 3 patch, 11 Refills, Maintenance, 03/17/25 1:17:00 PM EDT, [id number], Partial fill upon patient request if the prescription is for a schedule II opioid drug., 1 patch Topically; apply to clean, dry, intact skin; for contraception; apply a new patch to skin weekly for 3 weeks, remove for 1 week, then repeat cycle, 160, cm, 03/17/25 10:39:00 EDT, Height, 92.8, kg, 11/19/23 22:20:00 EDT, Dry Weight 03/17/20 Active ondansetron (Zofran) 4 MG tablet Take 1 tablet (4 mg) by mouth if needed each day for nausea or vomiting. 20 tablet 06/16/20 026 Active simethicone (Mylicon) 125 MG chewable tablet Chew 1 tablet (125 mg) every 6 (six) hours if needed for flatulence for up to 10 days. 30 tablet 06/16/20 025 guaiFENesin (Mucinex) 600 MG 12 hr tablet Take 1 tablet (600 mg) by mouth 2 times daily for 7 days. Do not crush, chew, or split. 14 tablet 06/16/20 25 025 amoxicillin (Amoxil) 500 MG capsuleIndicatio ns:Strep throat Take 1 capsule (500 mg) by mouth 2 times daily for 10 days. 20 capsule 06/26/20 25 025 Active Problems Problem Noted Date Diagnosed Date Strep throat 06/29/2025 Ear fullness, bilateral 06/29/2025 Flu-like symptoms 06/17/2025 Assessment & Plan (06/17/2025 4:48 PM EST): Pt presents w Flu like symptoms w benign physical exam and VS Flu,covid 19 strep neg here Urine preg neg today -hydration -simethicone ,zofran and mucinex PRN -Refuse offered STI test for HIV denies risk only one partner so unlikely symptoms from it -alarm signs and symptoms discussed w pt -excusse letter for 72 h handed to pt Asthma 06/16/2025 Gastroenteritis 03/07/2025 Assessment & Plan (03/07/2025 10:44 [...] life style modifications, diet and referral to airport operations specialist. Recommended to decrease soda and sugary [...] side effects (blurred vision). She's connected with CHW-Psychiatric Nursing Assistant, Berenice Lua and reports she has an [...] Health Integration Plan Internal Follow up with [facility] Patient Self Plan Patient to utilize skills provided in intervention , [facility], Patient to engage in OP therapy , and Patient to reach out to [facility] as needed. Patient is currently engage with [facility] for OP therapy. Assessment & Plan (02/04/2024 7:27 PM EDT): -depressive symptoms improved with Abilify, but patient is experiencing side effects, will try treatment for ADHD first, then reassess symptoms and treat mood disorder Healthcare maintenance 02/25/2023 Astigmatism of both eyes 02/25/2023 Mood disorder 09/24/2017 Overview (10/05/2024): Was following w/ couture dressmaker Jose Gibbs and counselor at [facility]. Is trying to relocate psych services [...] side effects (blurred vision). She's connected with CHW-Psychiatric Nursing Assistant, Berenice Lua and reports she has an [...] Health Integration Plan Internal Follow up with [facility] Patient Self Plan Patient to utilize skills provided in intervention , Patient to reach out to [facility] team as needed, Patient to engage in OP therapy , and Patient to reach out to [facility] as needed. Patient is currently engage with [facility] for OP therapy. Assessment & [...] Encounters Date Type Department Care Team Description 07/16/2025 Orders Only [facility] External Provider, [facility] 06/26/2025 3:00 PM EST Office Visit [facility] [address] [address] Lilliana Tamayo FNP Strep throat (Primary Dx); Flu-like symptoms; Ear fullness, bilateral 06/26/2025 Travel 06/19/2025 4:00 PM EST Office Visit [address] [address] Flavia Reid MD Acute URI (Primary Dx) 06/19/2025 Travel 06/16/2025 10:40 AM EST Office Visit [address] [address] Karly Roque MD Flu-like symptoms (Primary Dx); Sore throat; Nausea 06/16/2025 Travel 05/24/2025 Orders Only GENERIC EXTERNAL DATA DEPARTMENT Provider, Generic External Data 04/16/2025 Patient Outreach [facility] [address] [place] [phone] Alexander Whitaker ANP Care Management (C3CM- initial assessment/ enrollment. lvm) from Last 3 Months Immunizations Immunization Administration [...] the past 12 months, has t he [employer] or water [employer] threatened to shut off services in your [...] Reading Time Taken Comments Blood Pressure 121/79 06/26/2025 1:19 PM EST Pulse 87 06/26/2025 1:19 PM EST Temperature 36.5 C (97.7 F) 06/26/2025 1:19 PM EST Respiratory Rate 16 06/26/2025 1:19 PM EST Oxygen Saturation 98% 06/26/2025 1:19 PM EST Inhaled Oxygen Concentration - - Weight 90.1 kg (198 lb 9.6 oz) 06/19/2025 3:29 P M EST Height 152.4 cm (5') 06/19/2025 3:29 PM EST Body Mass Index 38.79 06/19/2025 3:29 PM EST Plan of Treatment Health Maintenance Due Date Last Done Comments HIV Screening 2001 Pneumococcal Vaccine: Pediatrics (0 to 5 Years) and At-Risk Patients (6 to 49) Years (1 of 1 - PPSV23, PCV20, or PCV21) 2007 08/28/2004, 05/16/2002, 03/21/2002, Additional history exists Meningococcal B Vaccine (1 of 2 - Standard) 2017 Hepatitis A Vaccines (2 of 2 - Risk 2-dose series) 03/27/2018 09/24/2017, 09/24/2017 Hepatitis C Screening 2019 SDOH Screening 03/23/2025 03/23/2024 COVID-19 Vaccine ( season) 2025 08/25/2021, 01/09/2021, 12/19/2020 Influenza Vaccine (#1) 2025 08/25/2021, 2021 Depression Monitoring 04/07/2025 10/05/2024, 025 Chlamydia and Gonorrhea Screening 05/30/2025 05/30/2024, 05/30/2024, 05/30/2024, Additional history exists Family Planning (PISQ) 08/07/2025 08/07/2024 Alcohol/Substance Use Screening 08/10/2025 08/10/2024 Pap Smear 09/09/2025 09/09/2022 Disability Screening 10/19/2025 10/19/2024 Tobacco Screening 06/19/2026 06/19/2025 Lipid Panel 06/12/2029 06/12/2024, 07/07/2023, 12/10/2021, Additional [...] Additional history exists HPV Vaccines Completed 09/24/2017, 0308/2017, 09/23/2015, Additional history exists Meningococcal Vaccine Completed [...] W PHARM Routine 07/16/2025 11:30 AM EST POCT INFLUENZA A (ID NOW RAPID MOLECULAR) Routine 06/26/2025 2:11 PM EST Flu-like symptoms POCT INFLUENZA B (ID NOW RAPID MOLECULAR) Routine 06/26/2025 2:11 PM EST Flu-like symptoms POC CARROLL ID NOW STREP A Routine 06/26/2025 1:49 PM EST Flu-like symptoms POCT RAPID COVID ANTIGEN Routine 06/26/2025 1:49 PM EST Flu-like symptoms POCT COVID-19 AG CARROLL ID NOW Routine 06/19/2025 4:10 PM EST Acute URI POCT INFLUENZA B (ID NOW RAPID MOLECULAR) Routine 06/19/2025 4:10 PM EST Acute URI POCT INFLUENZA A (ID NOW RAPID MOLECULAR) Routine 06/19/2025 4:10 PM EST Acute URI POCT , URINE Routine 06/16/2025 11:17 AM EST Nausea POCT INFLUENZA B (ID NOW RAPID MOLECULAR) Routine 06/16/2025 10:47 AM EST Sore throat POCT INFLUENZA A (ID NOW RAPID MOLECULAR) Routine 06/16/2025 10:47 AM EST Sore throat POC CARROLL ID NOW STREP A Routine 06/16/2025 10:44 AM EST Sore throat POCT RAPID COVID ANTIGEN Routine 06/16/2025 10:44 AM EST Sore throat FOOD AND TREE NUT ALLERGY PANEL WITH REFLEX TO COMPONENT Routine 05/24/2025 1:18 PM EDT LIPID PANEL, STANDARD Routine 06/12/2024 9:40 AM EST Elevated cholesterol CHLAMYDIA/N. GONORRHOEAE RNA, TMA, UROGENITAL Routine 05/30/2024 3:36 PM EST PAP SMEAR Routine 09/09/2022 12:00 AM EST from Last 3 Months or Most Recently Relevant to Health Maintenance Results * NM Hepatobiliary w Pharm (07/16/2025 11:30 AM EST) Anatomical Region Laterality Modality Body Nuclear Medicine 07/16/2025 11:3 0 AM EST Narrative 07/16/2025 1:28 PM EST [place] [address] Nuclear Medicine Report Signed Patient: Harjeet Frazier MR#: [id number] : 2000 Acct:[id number] Age/Sex: 24 / F ADM Date: 07/16/25 Loc: [facility] Attending Dr: Caryl YANES Ordering Physician: Caryl Gonzalez Date of Service: 07/16/25 Procedure(s): NM hepatobiliary w pharm Accession Number(s): [id number] cc: Caryl Gonzalez; ALEXANDER WHITAKER NP Reason [...] by: Shaun Johnson MD 07/16/2025 01:25 PM EST Dictated By: Shaun Johnson MD Signed By: <Electronically signed by Shaun Johnson MD in OV> 07/16/25 1325 DD/ 1130 TD/TT: 07/16/25 1300 [employer] Dyeing Machine Operator: Procedure Note Donotuseinterpreter, Image - 07/16/2025 [place] [address] Nuclear Medicine Report Signed Patient: Harjeet Frazier#: [id number] : 2000Acct:[id number] Age/Sex: 24 / FADM Date: 07/16/25 Loc: [facility] Attending Dr: Caryl YANES Ordering Physician: Caryl Gonzalez Date of Service: 07/16/25 Procedure(s): NM hepatobiliary w pharm Accession Number(s): [id number] cc: Caryl Gonzalez; ALEXANDER WHITAKER NP Reason [...] by: Shaun Johnson MD 07/16/2025 01:25 PM EST Dictated By: Shaun Johnson MD Signed By: <Electronically signed by Shaun Johnson MD in OV> 07/16/25 1325 DD/ 1130 TD/TT: 07/16/25 1300 [employer] Dyeing Machine Operator: [facility] External Provider IMG NM PROCEDURES Edited Result - Final * Influenza B (ID NOW Rapid Molecular) (06/26/2025 2:11 PM EST) Only the most recent of3 resultswithin the time period is included. Influenza B Negative Negative, Indeterminate [facility] Swab 06/26/2025 2:11 PM EST Lilliana Alma Johnso PLASMA PROCESSOR POINT OF CARE TEST ENTER/EDIT ORDERABLES Final Result Performing Organization Address [facility] Co de Phone Number [facility] [address] [place] [phone] * Influenza A (ID NOW Rapid Molecular) (06/26/2025 2:11 PM EST) Only the most recent of3 resultswithin the time period is included. Influenza A Negative Negative, Indeterminate [facility] Swab 06/26/2025 2:11 PM EST Lilliana Alma Johnso PLASMA PROCESSOR POINT OF CARE TEST ENTER/EDIT ORDERABLES Final Result Performing Organization Address City/[facility]/ZIP Co de Phone Number [facility] [address] [place] [address] [phone] * (ABNORMAL) POCT ID NOW Rapid Strep A manually resulted (06/26/2025 1:49 PM EST) Only the most recent of2 resultswithin the time period is included. [facility] Rapid Strep A Screen Positive( A) Negative, None Detected Swab 06/26/2025 1:49 PM EST Lilliana Okhipo PLASMA PROCESSOR POINT OF CARE TEST ENTER/EDIT ORDERABLES Final Result * POCT Rapid COVID Ag (06/26/2025 1:49 PM EST) Only the most recent of2 resultswithin the time period is included. [facility] Rapid COVID Ag Negative Swab 06/26/2025 1:49 PM EST Lilliana Medigushipo PLASMA PROCESSOR POINT OF CARE TEST ENTER/EDIT ORDERABLES Final Result * POCT COVID-19 Ag Carroll ID NOW (06/19/2025 4:10 PM EST) [facility] Coronavirus Antigen PCR Negative Negative, Indeterminate, None Detected, Trace, 3+, Specimen unsatisfactory for evaluation, Weakly Positive, 1+, 2+ Swab 06/19/2025 4:10 PM EST Flavia Reid MD POINT OF CARE TEST ENTER/E DIT ORDERABLES Final Result * POCT Urine (06/16/2025 11:17 AM EST) Pathologist [facility] Preg Test, Ur Negative Negative, Indeterminate, None Detected, Trace, 3+, Specimen unsatisfactory for evaluation, Weakly Positive, 1+, 2+ QC Media Lot # [id number] Lot# Expiration Date [id number] Urine 06/16/2025 11:1 7 AM EST Karly Colon MD POINT OF CARE MARJORIE T ENTER/EDIT ORDERABLES Final Result * Food and Tree Nut Allergy Panel with Reflex to Components (05/24/2025 1:18 PM EDT) Egg White (F1) IgE <0.10 kU/L [facility] Cow's Milk (F2) IgE <0.10 kU/L [facility] Codfish (F3) IgE <0.10 kU/L [facility] Wheat (F4) IgE <0.10 kU/L [facility] Sesame Seed (F10) IgE <0.10 kU/L [facility] Peanut (F13) IgE <0.10 kU/L [facility] Soybean (F14) IgE <0.10 kU/L [facility] Hazelnut (F17) IgE <0.10 kU/L [facility] Alexandria (F20) IgE <0.10 kU/L [facility] Shrimp (F24) IgE <0.10 kU/L [facility] Tuna (F40) IgE <0.10 kU/L [facility] [id number] Arabi <0.10 kU/L [facility] Q651-HtP Scallop <0.10 kU/L [facility] Class 0 [facility] Comment:THIS TEST WAS PERFOR MED AT:[facility] [address] [id number] LI MD Class 0 [facility] Comment:THIS TEST WAS PERFOR MED AT:[facility] [address] [id number] LI MD [place] Class 0 [facility] Comment:THIS TEST WAS PERFOR MED AT:[facility] [place] [id number] LI MD [facility] 0 [facility] Comment:THIS TEST WAS PERFOR MED AT:[facility] [address] [id number] LI MD [facility] 0 [facility] Comment:THIS TEST WAS PERFOR MED AT:[facility] [address] SHYANNE LI MD Class 0 [facility] Comment:THIS TEST WAS PERFOR MED AT:[facility] [address] [id number] LI MD Class 0 [facility] Comment:THIS TEST WAS PERFOR MED AT:[facility] [address] SHYANNE LI MD Class 0 [facility] Comment:THIS TEST WAS PERFOR MED AT:[facility] [address] SHYANNE LI MD Class 0 [facility] Comment:THIS TEST WAS PERFOR MED AT:[facility] [address] SHYANNE LI MD Class 0 [facility] Comment:THIS TEST WAS PERFOR MED AT:[facility] [address] [id number] LI MD Class 0 [facility] Comment:THIS TEST WAS PERFOR MED AT:[facility] [address] SHYANNE LI MD Class 0 [facility] Comment:THIS TEST WAS PERFOR MED AT:[facility] [address] SHYANNE LI MD Class 0 [facility] Comment:THIS TEST WAS PERFOR MED AT:[facility] [address] [id number] LI MD Cashew Nut (F202) IgE <0.10 kU/L [facility] Macadamia Nut (RF345) IgE <0.10 kU/L [facility] Class 0 [facility] Comment:THIS TEST WAS PERFOR MED AT:[facility] [address] SHYANNE LI MD Alpine (F41) IgE <0.10 kU/L [facility] Thornton Nut (F18) IgE <0.10 kU/L [facility] Class 0 [facility] Comment:THIS TEST WAS PERFOR MED AT:[facility] [place] [id number] LI MD Class 0 [facility] Comment:THIS TEST WAS PERFOR MED AT:[facility] [id number] [place] [id number] LI MD Class 0 [facility] Comment:THIS TEST WAS PERFOR MED AT:[facility] [address] [id number] LI MD 05/24/2025 1:18 PM EDT 05/24/2025 2:19 PM EDT us Generic External Data Provider LAB BLOOD ORDERAB LES Final Result [facility] [address] [place] [address] [phone] * (ABNORMAL) Lipid Panel, Standard (06/12/2024 9:40 AM EST) Triglycerides 98 <150 mg/dL [facility] Comment:Desirable Triglyceri de: less than 150 mg/dLBorderline High Triglyceride 150-199 mg/dLHigh Triglyceride: 200-499 mg/dLVery High Triglyceride: greater than or equal to 5OO mg/dL Cholesterol 155 <200 mg/dL [facility] Comment:Desirable Cholestero l: less than 200 mg/dLBorderline High Cholesterol: 200-239 mg/dLHigh Cholesterol: greater than 239 mg/dL LDL Cholesterol Calculated 105(H) <100 mg/dL [facility] Comment:Desirable LDL: less than 100 mg/dLNear Optimal/Above Optimal LDL: 110- 129 mg/dLBorderline High LDL: 130-159 mg/dLHigh LDL: 160-189 mg/dLVery High LDL: greater than or equal to 190 mg/dL HDL Cholesterol 31(L) >40 mg/dL [facility] Comment:Desirable HDL: great er than 40 mg/dL Note: This HDL assay may give artificially low results in patients with liver disease. Blood Venous blood specimen / Unknown 06/12/2024 9:40 AM EST 06/12/2024 11:32 AM EST [facility] LAB BLOOD ORDERABLES Final Resul t [facility] [address] [place] [address] [phone] * Chlamydia/N. Gonorrhoeae RNA, TMA, Urogenitial (05/30/2024 3:36 PM EST) CT PCR NOT DETECTED Not Detect. [facility] Comment:A not detected test result [...] psychologicalconsequences. NG PCR NOT DETECTED Not Detect. [facility] Comment:A not detected test result [...] PM EST 05/30/2024 3:40 PM EST Narrative [facility] - 05/30/2024 5:19 PM EST Vaginal us Generic External Data Provider LAB MICROBIOLOGY - GENERAL ORDERABLES Final Result Performing Organization Address City/[facility]/ZIP Co de Phone Number [facility] [address] [place] [address] [phone] * Pap Smear (09/09/2022 12:00 AM EST) Swab [facility] [place] LAB CYTOLOGY ORDERABLES Final Re sult Performing Organization Address City/[facility]/ZIP Co de Phone Number [facility] [address] [place] [address] [phone] from Last 3 Months or Most Recently Relevant to Health Maintenance Insurance [facility] C3 Care Teams Manager Intensive Care Unit Relationship Specialty Start Date End Date Alexander Whitaker ANP [address] [place] [address] PCP - General Family Medicine 02/01/23 Sujatha Nolan, MAK [address] [place] [address] Registered Nurse Family Medicine 03/21/25 Emeli Brooks 03/21/25
--- OUTSIDE RECORDS SUMMARY | 2025-07-16 13:45 | XMS_ITS ---
Author Organization [employer] Address [address] [facility] [address]t [place] [address] Care Team Providers Care Tugboat Captain Name Role Phone Amy Mejia Primary Care Provider [phone] Sujatha Nolan RN Unavailable [phone] Emeli Brooks Unavailable CHW Complex Status:Outreach In Progress (Enrolling) Start date:03/21/2025 Enrollment reason:ADT Feed Overview [facility] ED 03/21/25. Please outreach for enrollment. Case Team Name Relationship Phone Emeli Brooks(Responsible Staff) [phone] Continued Care and Services Coordination
--- OUTSIDE RECORDS SUMMARY | 2025-07-16 13:45 | XMS_ITS | Encounter Summary ---
Author Organization [employer] Address [address] [place] [address] Care Team Providers Care Natural Science Manager Name Role Phone Amy Mejia Primary Care Provider [phone] Sujatha Nolan RN Unavailable [phone] Emeli Brooks Unavailable Reason for Visit * Reason Onset Date Comments Nurse Triage 03/26/2023 Encounter Details Date Type Department Care Team (Late st Contact Info) Description 03/26/[address] [facility] [address] [place], [place] [phone] Amy Mejia ANP [address] [place], [place] [phone] Nurse Triage Social History Tobacco Use Types [...] number, Messages left to return call to [phone]. * Telephone Encounter - Radha Sainz - 03/26/2023 10:13 AM EDT Patient calling to report heartburn . Patient speaks Wolof. Advised triage nurse will call patient back. documented in this encounter Plan of Treatment Not on file documented as of this encounter Visit Diagnoses Not on filedocumented in this encounter Additional Health Concerns Assessment Noted Time PHQ-9 Depression Total Score: 5 02/26/20 23 1:11 PM EDT documented as of this encounter Care Teams Natural Science Manager Relationship Specialty Start Date End Date Amy Mejia ANP [address] [place] [phone] PCP - General Family Medicine 02/01/23 Sujatha Nolan, MAK [address] [place] [phone] Registered Nurse Family Medicine 03/21/25 Emeli Brooks 03/21/25 documented as of this encounter
--- OUTSIDE RECORDS SUMMARY | 2025-07-16 13:45 | XMS_ITS ---
Author Organization [employer] Address [address] [facility] [address]t [place] [address] Care Team Providers Care Certified Medical Technician Name Role Phone Amy Meija Primary Care Provider [phone] Sujatha Nolan RN Unavailable [phone] Emeli Brooks Unavailable CM Complex Status:Outreach In Progress (Enrolling) Start date:03/21/2025 Enrollment reason:ADT Feed Overview [facility] ED 03/21/25 Case Team Name Relationship Phone Sujatha Nolan RN(Responsible Staff) Registered Nurse [phone] Continued Care and Services Coordination
--- OUTSIDE RECORDS SUMMARY | 2025-07-16 13:45 | XMS_ITS | Encounter Summary ---
Author Organization [employer] Address [address] [place] [address] Care Team Providers Care Manager Asset Name Role Phone Amy Mejia Primary Care Provider [phone] Sujatha Nolan RN Unavailable [phone] Emeli Brooks Unavailable Reason for Visit * Reason Onset Date Comments Results 05/04/2024 Encounter Details Date Type Department Care Team ([facility] st Contact Info) Description 05/04/2024 Telephone [facility] [address] [place], [place] [phone] Amy Mejia ANP [address] [place], [place] [phone] Results Social History Tobacco Use Types Packs/Day [...] the past 12 months, has t he [employer], gas, oil or water [employer] threatened to shut off services in your [...] removal, does not want to go to [place], and states she wants to try a [...] will need to be removed with a machine hoop maker. Would you like to have appointment here or would you like me to send you back to [facility]? I got a message from the [...] documented as of this encounter Care Teams Manager Asset Relationship Specialty Start Date End Date Amy Mejia ANP [address] [place] [address] PCP - General Family Medicine 02/01/23 Sujatha Nolan RN [address] [place] [address] Registered Nurse Family Medicine 03/21/25 Emeli Brooks 03/21/25 documented as of this encounter
== END ==
LOC: HO.NUCMED 10:57
PROVIDERS: PCP Nurse Practitioner Primary Care; Visit Provider Nurse Practitioner
DX: R19.7 Diarrhea, unspecified (principal); R10.10 Upper abdominal pain, unspecified
CPT/HCPCS: 78227; A9537; J2805

== ENCOUNTER → 2025-07-16 10:59 | Outpatient (BNV) | payer MEDICAID, SELFPAY | PROVIDERS: PCP Nurse Practitioner Primary Care; Visit Provider Radiology Diagnostic Radiology | DX: K82.8 Other specified diseases of gallbladder (principal); R19.7 Diarrhea, unspecified | CPT/HCPCS: 78227 ==